=== PATIENT | female | born 1945 | race Caucasian/White ===

== ENCOUNTER 2016-05-21 14:35 | Inpatient (IN) | payer MEDICARE ==
[2016-05-21] VITALS (19 sets, daily range): BP systolic 99–147; BP diastolic 52–76; O2SAT 100
[~2016-05-21] VITALS: Ht 167.6 cm; Wt 83.7 kg
[~2016-05-21 14:35] MED LIST: ASPI81TA85 PO; BREO1INH INH; CALCCHW3 PO; CARD120T4 PO; CARD180C4 PO; CETI10TA PO; CIPR500T89 PO; COUM2.5T11 PO; CYMB60CA3 PO; DILT240C5 PO; DRIS50002 PO; FURO40TA2 PO; GABA300C3 PO; IPRASOL4 INH; LASI20TA PO; MONT10TA2 PO; MULT1TAB8 PO; PERCOCET PO; PROA1AER INH; ROSU10TA PO; SITA50TAB PO; THEO200T4 PO; THEO30TASA PO; TRAD5TAB PO; TRAM50TA2 PO; TYLE325T5 PO; ZOLO25TA PO
[2016-05-21] MEDS ORDERED: MORPHINE 2 MG/ML 1ML SYRINGE IV PRN (14:45)
[2016-05-21] MEDS ORDERED: REFRIGERATOR IV KEYS XX PRN (14:45)
[2016-05-21] MEDS ORDERED: MIDAZOLAM INJ 2 MG/2 ML VIAL (J2250) As Ordered ONE (14:50)
[2016-05-21] MEDS ORDERED: ETOMIDATE INJ 20MG/10ML VIAL As Ordered ONE (14:55)
[2016-05-21] MEDS ORDERED: ROCURONIUM BROMIDE 50 MG/5 ML VIAL As Ordered ONE (14:56)
[2016-05-21] MEDS ORDERED: ROCURONIUM BROMIDE 50 MG/5 ML VIAL IV ONE (15:00)
[2016-05-21] MEDS ORDERED: LIDOCAINE 1% MDV 20ML VIAL SC ONE (15:00)
[2016-05-21] MEDS ORDERED: LIDOCAINE 1% MDV 20ML VIAL As Ordered ONE (15:14)
[2016-05-21] MEDS ORDERED: WARF-23 PO (15:26)
--- NOTE | 2016-05-21 15:32 | REP ---
Portable chest x-ray: Single view. History: Endotracheal tube exchanged. Comparison chest x-rays from May 21, 2016. Findings: Endotracheal tube is seen in good position at the level of the transverse aorta. An NG tube enters the left upper quadrant of the abdomen. A right subclavian line terminates in the expected location of the superior vena cava as before. There is a new finding today of a moderate to large right-sided pneumothorax. There are old healed rib fractures on the right. There is some compressive atelectasis in the right lower lobe. There the right hemidiaphragm may be somewhat depressed. Impression: New fairly large right-sided pneumothorax. Endotracheal, nasogastric and right subclavian catheters in place. Signed by Romel Pate MD 05/21/2016 03:24 P
[2016-05-21 15:53] LABS: ABG BASE EXCESS 10.8 (-2.0-2.0); ABG HCO3 37.1 MEQ/L (22.0-26.0); ABG PARTIAL PRESSURE CO2 58.7 mmHg (35.0-45.0); ABG PARTIAL PRESSURE O2 74.4 mmHg (75.0-100.0); ABG STANDARD HCO3 34.5 MEQ/L (22.0-26.0); ABG TOTAL CO2 38.9 MEQ/L (23.0-31.0); ABG pH (ARTERIAL) 7.419 UNITS (7.350-7.450)
[2016-05-21] MEDS: IPRATROPIUM 0.5MG/ALBUTEROL 2.5MG INH SOL UD 3ML (DUONEB)(J7620) NEB SCH ×2 (16:00→20:05)
[2016-05-21] MEDS ORDERED: MIDAZOLAM INJ 2 MG/2 ML VIAL (J2250) IV STA (16:08)
[2016-05-21] MEDS ORDERED: ETOMIDATE INJ 20MG/10ML VIAL IV STA (16:08)
[2016-05-21] MEDS ORDERED: AZITHROMYCIN INJ 500 MG, VIAL MATE ADAPTER 1 EACH in D5W 250 ML IV SCH (17:00)
[2016-05-21 17:20] LABS: MEAN CORPUSCULAR HEMOGLOBIN 27.6 pg (27.0-33.0); MEAN CORPUSCULAR HGB CONC 30.2 g/dl (32.0-36.5); MEAN CORPUSCULAR VOLUME 91.1 fl (80.0-96.0); WHITE BLOOD COUNT 15.8 K/mm3 (4.0-10.0)
[2016-05-21] MEDS: fentaNYL 100 MCG/2 ML INJECTION (J3010) IV PRN (17:27)
--- NOTE | 2016-05-21 17:28 | REP ---
Supine portable chest x-ray: Single view. History: Intubated patient. Chest tube placement. Findings: A right chest tube is seen at the apex in good position. The right lung is reinflated and the previously noted right-sided pneumothorax is evacuated. Right lung is clear. Pulmonary vascular cephalization is seen. Mildly prominent heart is noted. Prior sternotomy seen. Endotracheal and nasogastric tubes and right subclavian line again noted. Impression: Right chest tube in good position. Right pneumothorax evacuated. Signed by Romel Pate MD 05/21/2016 05:36 P
[2016-05-21 17:37] LABS: INR 2.56
[2016-05-21 17:40] LABS: ALBUMIN 3.1 GM/DL (3.2-5.2); ALBUMIN/GLOBULIN RATIO 0.84 (1.00-1.93); BILIRUBIN,TOTAL 0.7 MG/DL (0.2-1.0); CALCIUM LEVEL 8.6 MG/DL (8.8-10.2); CREATININE FOR GFR 1.88 MG/DL (0.55-1.02); GLOMERULAR FILTRATION RATE 28.2 (>39); TOTAL PROTEIN 6.8 GM/DL (6.4-8.2)
[2016-05-21] MEDS: cefTRIAXone SOD 1 GM in D5W MINI-BAG PLUS 50 ML IV SCH (18:24)
[2016-05-21] MEDS: MIDAZOLAM HCL 100 MG in D5W 80 ML IV SCH ×2 (18:25→22:30)
[2016-05-21] MEDS: methylPREDNISolone INJ 125 MG/2 ML VIAL (J2930) IV SCH ×2 (18:25→22:12)
[2016-05-21] MEDS: HumaLOG INSULIN (NovoLOG) PER UNIT SC SCH ×2 (18:26→23:55)
--- NOTE | 2016-05-21 19:40 | HPE ---
DATE OF ADMISSION: 05/21/2016 CRITICAL CARE TIME: Two hours. This excludes all procedures. HISTORY OF PRESENT ILLNESS: I accepted this 70-year-old female from [facility] with progressive respiratory failure requiring intubation and mechanical ventilation. She had acute on chronic hypercarbic respiratory failure requiring intubation approximately 01:30 a.m. this morning. I was called for transfer late this morning and after arranging for bed, the patient arrived around 1430. On arrival, she had notable respiratory distress. The patient was difficult to bag and had high peak pressures when placed on mechanical ventilation. I exchanged her tube in order to facilitate improved breathing. However, this did not improve her distress. Chest x-ray was obtained showing right pneumothorax. Immediate chest tube was placed on the right. After chest tube was placed, peak pressures returned to near-normal. She was able to tolerate mechanical ventilation with better tidal volumes. She is now on pressure control ventilation 22 over 8 with a respiratory rate of 12, FIO2 of 0.40 with an arterial blood gas showing a pH of 7.42, pCO2 of 59, pO2 of 74. She is unable to provide any history. On review of the chart, she was admitted to [facility] on May 19, 2016, after a recent hip fracture. She was actually is admitted to [facility] on April 09 with a right intertrochanteric fracture. However, she was noted have chronic hypercarbic respiratory failure at that point in time. She was discharged on April 22 to rehabilitation facility and then became more short of breath a few days prior to admission to the hospital. During her hospital stay at [place], she was treated with broad-spectrum antibiotics for presumed healthcare-associated pneumonia, and was treated with vancomycin and cefepime. Chest CT was obtained to rule out pulmonary embolism. There was no thromboembolic disease found; however, there was very mild, nonspecific infiltrates in the right middle lobe and significant emphysema. The patient had progressive shortness of breath despite been on antibiotics and steroids, failed bilevel positive airway pressure (BiPAP), and then was intubated. As she is not able to give medical history, I did call her daughter who is her oldest child and only living relative in the area. The patient is not . Past medical history consists of: 1. Multiple falls 2. osteoporosis 3. coronary artery disease, status post coronary artery bypass grafting in 2010 4. chronic obstructive pulmonary disease on two liters of oxygen. Her daughter states she sees Dr. Geiger. 5. Hypertension. 6. Type 2 diabetes. 7. History of chronic atrial fibrillation. 8. History of congestive heart failure. 9. Obesity. 10. Dyslipidemia. 11. Chronic back pain. 12. Depression. 13. History of nephrolithiasis. 14. History of cholelithiasis. 15. Seasonal allergies. ALLERGIES: MORPHINE reported anaphylaxis. SULFA ANTIBIOTICS. Family history, social history, review of systems are all unobtainable due to the patient's condition. PHYSICAL EXAMINATION: VITAL SIGNS: Temperature is 98.7, heart rate is 104 and in sinus rhythm, oxygen saturation is 92% on 0.40 FIO2. Blood pressure is 134/63. Respiratory rate is 15. GENERAL: The patient is sedated on mechanical ventilations. HEENT: Pupils equal, react to light. Mucous membranes are moist. Tongue is large. Mallampati 4. An 8.0 end[address] tube is in place. NECK: Supple. No tracheal deviation or mass. LYMPHATIC: No cervical, supraclavicular, or axillary adenopathy. CARDIAC: Distant S1-S2 without audible murmur, rub or gallop. No discernible elevated jugular venous pulse (JVP). No significant peripheral edema. PULMONARY: Decreased breath sounds throughout both lung ayala with prolonged expiratory phase. There is no accessory muscle use. ABDOMEN: Obese, soft, slightly distended; however, distension reduced with the insertion of an orogastric (OG) tube. There was no discernible hepatosplenomegaly. No masses or hernias. EXTREMITIES: No cyanosis, clubbing or edema. SKIN: Pale, cool without rashes, jaundice or bruising. NEUROLOGIC: No unilateral weakness. The patient moves extremities appropriately when sedation is lifted. No evidence of seizure or tremor. MUSCULOSKELETAL: Well developed. No evidence of recent fracture or joint effusion. LABORATORY DATA: Laboratory evaluation shows an arterial blood gases 7.42, pCO2 of 59, and PAO2 of 74. The remainder of the blood work is pending from admission. IMAGING: Initial chest x-ray shows a right pneumothorax. Second chest x-ray shows a chest tube that was placed in the fifth intercostal space extensive apice with resolution of the pneumothorax. There are no infiltrates seen on chest x-ray. Endotracheal tube is in good position. IMPRESSION: 1. Acute on chronic hypercarbic respiratory failure requiring mechanical ventilation with complication of pneumothorax. Difficult to know the exact cause of the pneumothorax. Could be because of significant bronchospasm and barotrauma. It could also have been iatrogenic from central line placement at the outside institution or when endotracheal tube was exchanged here. As far as her hypercarbic respiratory failure, I believe this is secondary to a chronic obstructive pulmonary disease (COPD) exacerbation. COPD exacerbation will be treated with antibiotics ceftriaxone and azithromycin and we will monitor for side effects for a possible allergic reaction due to her history of SULFA allergy. She will be placed on Solu-Medrol to help with her bronchospasm and along with DuoNeb. 2. Pneumothorax. Will continue with negative suction. There is significant air leak. The patient will be placed on negative 20 cm until air leak resolves. 3. Diabetes. Will place on sliding-scale insulin every six, then initiate tube feeds at 30 mL an hour. 4. Atrial fibrillation, currently in sinus rhythm. Will check INR. At this point in time, no acute indication for anticoagulation. 5. Deep venous thrombosis (DVT) prophylaxis with heparin. 6. Gastrointestinal (GI)prophylaxis with Protonix. MTDD
[2016-05-21] MEDS: AZITHROMYCIN INJ 500 MG, VIAL MATE ADAPTER 1 EACH in D5W 250 ML IV SCH (20:14)
[2016-05-21] MEDS: CHLORHEXIDINE GLUCONATE 0.12 % 15ML UDC (PERIDEX ORAL RINSE) MT SCH (20:14)
[2016-05-21] MEDS ORDERED: SODIUM CHLORIDE 0.9% 1000 ML IV ONE (21:15)
[2016-05-21] MEDS: HEPARIN SOD (PORCINE) 5000 UNITS/ML VIAL SQ SCH (22:12)
[2016-05-22] VITALS (25 sets, daily range): BP systolic 114–154; BP diastolic 54–67; O2SAT 93–95
[2016-05-22] MEDS: MIDAZOLAM HCL 100 MG in D5W 80 ML IV SCH (05:35)
[2016-05-22] MEDS: methylPREDNISolone INJ 125 MG/2 ML VIAL (J2930) IV SCH ×4 (05:40→23:36)
[2016-05-22] MEDS: HumaLOG INSULIN (NovoLOG) PER UNIT SC SCH ×4 (05:41→23:36)
[2016-05-22] MEDS: HEPARIN SOD (PORCINE) 5000 UNITS/ML VIAL SQ SCH ×3 (05:47→21:56)
[2016-05-22 06:16] LABS: ABG BASE EXCESS 11.5 (-2.0-2.0); ABG HCO3 37.7 MEQ/L (22.0-26.0); ABG PARTIAL PRESSURE CO2 58.7 mmHg (35.0-45.0); ABG PARTIAL PRESSURE O2 80.7 mmHg (75.0-100.0); ABG STANDARD HCO3 35.2 MEQ/L (22.0-26.0); ABG TOTAL CO2 39.5 MEQ/L (23.0-31.0); ABG pH (ARTERIAL) 7.425 UNITS (7.350-7.450)
[2016-05-22 06:21] LABS: MEAN CORPUSCULAR HEMOGLOBIN 27.5 pg (27.0-33.0); MEAN CORPUSCULAR HGB CONC 30.1 g/dl (32.0-36.5); MEAN CORPUSCULAR VOLUME 91.5 fl (80.0-96.0); RED CELL DISTRIBUTION WIDTH 16.9 % (11.5-14.5); WHITE BLOOD COUNT 13.8 K/mm3 (4.0-10.0)
[2016-05-22 06:28] LABS: ALBUMIN 2.8 GM/DL (3.2-5.2); ALBUMIN/GLOBULIN RATIO 0.8 (1.00-1.93); BILIRUBIN,TOTAL 0.3 MG/DL (0.2-1.0); CALCIUM LEVEL 8.1 MG/DL (8.8-10.2); CREATININE FOR GFR 2.3 MG/DL (0.55-1.02); GLOMERULAR FILTRATION RATE 22.3 (>39); POTASSIUM SERUM 4.1 MEQ/L (3.5-5.1); TOTAL PROTEIN 6.3 GM/DL (6.4-8.2)
--- NOTE | 2016-05-22 06:37 | RO ---
DATE OF PROCEDURE: 05/21/2016 PREOPERATIVE DIAGNOSIS: Right pneumothorax. POSTOPERATIVE DIAGNOSIS: Right pneumothorax. PROCEDURE: Right chest tube placement. SURGEON: Dr. Agustin Wang EMU FARMER: None. ANESTHESIA: 1% lidocaine. DESCRIPTION OF PROCEDURE: The procedure was deemed urgent as the patient was just transferred on mechanical ventilation with high peak pressures on arrival, no breath sounds on the right and chest x-ray confirming moderate pneumothorax. I isolated the right fifth intercostal space in the midaxillary line. I performed a time out, identifying correct site and correct procedure. Chlorhexidine was used to clean the area. Sterile drapes were then used. Lidocaine was then instilled subcutaneously down to the level of the pleura. A #10 blade was then used to cut a 2 cm incision. The long curved forceps were then used to advance into the pleural space. There was a flower of air. A #28 [place] [employer] chest tube was then placed. This was sutured in place with a mattress suture and attached to a Pleur-Evac with evidence of good air leak. Placement was confirmed by chest x-ray. Sterile gauze was placed over the site and the site was secured. There were no observed complications. The patient tolerated the procedure well with improvement of mechanical ventilation and improvement of pressures. ADELFO
--- NOTE | 2016-05-22 06:45 | RO ---
DATE OF PROCEDURE: 05/21/2016 PREOPERATIVE DIAGNOSIS: Respiratory distress. POSTOPERATIVE DIAGNOSIS: Respiratory distress. PROCEDURE: Endotracheal tube intubation. SURGEON: Dr. Agustin Wang SPAR CAP BEVELER: None. ANESTHESIA: The patient was already sedated on mechanical ventilation. The patient was brought into the intensive care unit (ICU) Room #10. As the patient was lifted from the gurney onto the bed, she was then attached to mechanical ventilation and it was noticed that she had very high peak pressures. She had a smaller endotracheal tube which she had been biting on and appeared to be kinked therefore, it was determined to best replace the tube with a larger bore endotracheal tube. This was done with ease. I did use etomidate and rocuronium to facilitate placement. Although it was slightly easier to bag, the patient still had increased peak pressures when placed on mechanical ventilation. It was then discovered that the reason for the increased pressures was because of a pneumothorax that had occurred some time prior to her arrival. Chest x-ray confirmed suspicion, therefore, chest tube was placed as outlined in a separate note. DESCRIPTION OF THE ENDOTRACHEAL TUBE PLACEMENT: The posterior pharynx was viewed. There was a grade 2 view with a glide scope. The 7.5 endotracheal tube was removed over a tube exchanger and the 8.0 endotracheal tube was advanced to the 24 cm denton at the lip. This was secured. There were no observed complications. ADELFO
[2016-05-22] MEDS ORDERED: SODIUM CHLORIDE 0.9% INJ 10 ML SYR IV PRN (07:45)
[2016-05-22] MEDS ORDERED: SLF 3 ML SYR IV PRN (07:45)
[2016-05-22] MEDS: IPRATROPIUM 0.5MG/ALBUTEROL 2.5MG INH SOL UD 3ML (DUONEB)(J7620) NEB SCH ×4 (07:48→19:57)
[2016-05-22] MEDS: PANTOPRAZOLE 40MG INJ (PROTONIX) (C9113) IV SCH (08:56)
[2016-05-22] MEDS: CHLORHEXIDINE GLUCONATE 0.12 % 15ML UDC (PERIDEX ORAL RINSE) MT SCH ×2 (08:56→20:28)
--- NOTE | 2016-05-22 09:15 | REP ---
Portable chest x-ray: Sitting AP view. History: Respiratory failure. Comparison study: May 21, 2016. Findings: A right apical chest tube remains in place. Right subclavian line endotracheal tube and nasogastric tubes are seen. EKG electrodes and oxygen delivery tubing is seen. There is no definite pneumothorax visible. Cardiomediastinal silhouette is unchanged. No new infiltrate. Signed by Romel Pate MD 05/22/2016 10:23 A
[2016-05-22] MEDS: fentaNYL 100 MCG/2 ML INJECTION (J3010) IV PRN (11:50)
[2016-05-22] MEDS ORDERED: MIDAZOLAM INJ 2 MG/2 ML VIAL (J2250) As Ordered ONE (11:58)
--- NOTE | 2016-05-22 11:59 | CCN ---
DATE OF SERVICE: 05/22/2016 Critical care time is 1 hour 8 minutes. This excludes all procedures. HISTORY OF PRESENT ILLNESS: Jennifer is a 70-year-old female who has been on mechanical ventilation. Chest tube was placed yesterday for right-sided pneumothorax. She remains on mechanical ventilation due to her respiratory failure. She had significant bronchospasm difficulty with breathing, as at the outside hospital, was intubated early yesterday morning. She is tolerating tube feeds at 30 mL an hour. She continues on high-dose Solu-Medrol, ceftriaxone, azithromycin. She is sedated with Versed. Her international normalized ratio (INR) was elevated yesterday due to the fact that she has been on warfarin for atrial fibrillation (AFib). The Coumadin has been held, and she continues on deep venous thrombosis (DVT) prophylaxis. She remains on pressure control ventilation /8 with a respiratory rate of 12, FiO2 of 0.40, with an arterial blood gas of 7.42, pCO2 of 58, pO2 of 80.7. PHYSICAL EXAMINATION: Temperature is 98.0, pulse is 120, respiratory rate is 12, blood pressure is 116/56, oxygen saturations 93% on 0.40 FiO2. Intake and output (I and O): 1510 in. 331 out. Net positive 1.179 liters. Over the past 2 hours, she has had 35 mL an hour out of urine output. In general, awakes on sedation vacation. No unilateral weakness. She occasional will have shaking movements that do not appear to be seizure activity. HEENT: Sclerae clear and anicteric. Pupils are 5 mm and reactive to light. Mucous membranes are moist without lesions. Tongue is midline. She has no upper teeth. Her lower teeth are in fair repair. 8.0 endotracheal tube is in place at 24 at the lip. Neck is supple. No tracheal deviation or mass. Jugular venous pressure (JVP) is difficult to assess because of body habitus. There is a right subclavian line in place from the outside hospital. Lymph: No cervical, supraclavicular, or axillary adenopathy. Cardiac: Distant S1, S2 without audible murmur, rub, or gallop. Rate and rhythm are regular. Pulmonary: Better air entry than yesterday. There is a prolonged expiratory phase. No significant wheeze or rhonchi. Abdomen is obese, soft, nontender, nondistended. No discernible hepatosplenomegaly. No masses or hernia. She has normal active bowel sounds. Extremities: No cyanosis, clubbing, or edema. Thromboembolic deterrents (TEDs) are in place. Musculoskeletal: Normal muscle tone. No evidence of joint effusion or fracture. Neurologic: Pupils are equal, reactive to light, as mentioned above, awakes on sedation vacation. No evidence of unilateral weakness. LABORATORY EVALUATION: Shows a pH of 7.42, pCO2 of 58, pO2 of 80.7. Sodium is 139, potassium is 4.1, chloride is 95, bicarbonate is 37, BUN of 56, creatinine of 2.3 which has increased, glucose is 165. White blood cell count is 13.8, hemoglobin 9.2, with a platelet count of 245. Chest x-ray: Chest x-ray shows right chest tube in appropriate position. The tip of the right subclavian line is in the superior vena cava. There is no significant infiltrate. IMPRESSION: 1. Acute on chronic hypercarbic respiratory failure, currently compensated on pressure control ventilation. Will continue mechanical ventilation today and perform a spontaneous breathing trial tomorrow to see if she is ready for a trial of extubation. Will continue on Solu-Medrol due to the chronic obstructive pulmonary disease (COPD) exacerbation. At this point in time, I do not find any evidence of pneumonia. However, she remains on ceftriaxone and azithromycin due to the severity of her illness. 2. Renal failure, worse today. However, is now having increased urine output. Will continue to monitor urine output over the next 24 hours. 3. Anemia. No acute indication for transfusion. I do not find any signs of active bleeding at this point in time. Will continue to monitor. 4. Right pneumothorax. Chest tube in place with continued air leak. Will continue on suction. 5. Diabetes. On sliding scale insulin. Blood glucose is in desired range this morning. Will continue to monitor for hyperglycemia, given the increase in her tube feeds. 6. History of atrial fibrillation, currently in sinus rhythm, although sinus tachycardia. The patient has a high risk of AFib with RVR. Will continue to monitor for this. 7. Deep venous thrombosis prophylaxis with heparin. 8. Gastrointestinal (GI) prophylaxis with Protonix. 9. Gastrointestinal nutrition. Will increase tube feeds to 50 mL an hour of Glucerna.
[2016-05-22] MEDS ORDERED: MIDAZOLAM INJ 2 MG/2 ML VIAL (J2250) IV PRN (12:15)
[2016-05-22] MEDS: MIDAZOLAM HCL 250 MG in D5W 200 ML IV SCH ×2 (13:01→20:52)
[2016-05-22] MEDS: SODIUM CHLORIDE 0.9% INJ 10 ML SYR IV SCH ×2 (13:01→21:56)
[2016-05-22] MEDS: SLF 3 ML SYR IV SCH ×2 (13:02→21:56)
[2016-05-22] MEDS ORDERED: PROPOFOL 1,000 MG/100 ML VIAL As Ordered ONE (13:54)
[2016-05-22] MEDS: cefTRIAXone SOD 1 GM in D5W MINI-BAG PLUS 50 ML IV SCH (17:13)
[2016-05-22] MEDS: AZITHROMYCIN INJ 500 MG, VIAL MATE ADAPTER 1 EACH in D5W 250 ML IV SCH (20:28)
[2016-05-22] MEDS: PROPOFOL 1,000 MG in APPROPRIATE DILUENT 1 EA IV SCH (23:36)
[2016-05-23] VITALS (24 sets, daily range): BP systolic 102–149; BP diastolic 50–76
[2016-05-23] MEDS: methylPREDNISolone INJ 125 MG/2 ML VIAL (J2930) IV SCH ×4 (04:05→22:21)
[2016-05-23] MEDS: HEPARIN SOD (PORCINE) 5000 UNITS/ML VIAL SQ SCH ×3 (05:35→21:01)
[2016-05-23] MEDS: PROPOFOL 1,000 MG in APPROPRIATE DILUENT 1 EA IV SCH ×3 (05:35→19:19)
[2016-05-23] MEDS: HumaLOG INSULIN (NovoLOG) PER UNIT SC SCH ×4 (05:36→23:36)
[2016-05-23] MEDS: SODIUM CHLORIDE 0.9% INJ 10 ML SYR IV SCH ×3 (05:36→21:00)
[2016-05-23] MEDS: SLF 3 ML SYR IV SCH ×3 (05:36→21:00)
[2016-05-23 05:58] LABS: MEAN CORPUSCULAR HEMOGLOBIN 27.6 pg (27.0-33.0); MEAN CORPUSCULAR VOLUME 88.8 fl (80.0-96.0); RED CELL DISTRIBUTION WIDTH 15.7 % (11.5-14.5); WHITE BLOOD COUNT 8.1 K/mm3 (4.0-10.0)
[2016-05-23 06:10] LABS: ABG BASE EXCESS 8.3 (-2.0-2.0); ABG HCO3 33.9 MEQ/L (22.0-26.0); ABG PARTIAL PRESSURE CO2 53.2 mmHg (35.0-45.0); ABG PARTIAL PRESSURE O2 105.9 mmHg (75.0-100.0); ABG STANDARD HCO3 32.1 MEQ/L (22.0-26.0); ABG TOTAL CO2 35.5 MEQ/L (23.0-31.0); ABG pH (ARTERIAL) 7.422 UNITS (7.350-7.450)
[2016-05-23 06:19] LABS: ALBUMIN 2.7 GM/DL (3.2-5.2); ALBUMIN/GLOBULIN RATIO 0.96 (1.00-1.93); BILIRUBIN,TOTAL 0.3 MG/DL (0.2-1.0); CALCIUM LEVEL 7.8 MG/DL (8.8-10.2); CREATININE FOR GFR 2.33 MG/DL (0.55-1.02); POTASSIUM SERUM 4.2 MEQ/L (3.5-5.1); TOTAL PROTEIN 5.5 GM/DL (6.4-8.2)
[2016-05-23] MEDS: IPRATROPIUM 0.5MG/ALBUTEROL 2.5MG INH SOL UD 3ML (DUONEB)(J7620) NEB SCH ×4 (07:44→20:19)
--- NOTE | 2016-05-23 08:14 | REP ---
Clinical: Respiratory failure. Comparison: 05/22/2016. Findings: Right chest tube in stable position. Endotracheal tube approximately 3 cm above the moe. Nasogastric tube courses below the left hemidiaphragm. Right central venous catheter with tip in the SVC. Mediastinum and cardiac silhouette stable. Evidence of prior sternotomy and CABG. Trace left basilar atelectasis cannot be excluded. No obvious pneumothorax. No obvious effusion. Skeletal structures are stable. Impression: 1. Lines and tubes in satisfactory position. II. No significant mediastinal or pleuroparenchymal changes. Trace left basilar atelectasis cannot be excluded. No obvious pneumothorax. Signed by Low Monahan MD 05/23/2016 08:05 A
[2016-05-23] MEDS: PANTOPRAZOLE 40MG INJ (PROTONIX) (C9113) IV SCH (08:17)
[2016-05-23] MEDS: CHLORHEXIDINE GLUCONATE 0.12 % 15ML UDC (PERIDEX ORAL RINSE) MT SCH ×2 (08:17→21:00)
--- NOTE | 2016-05-23 11:28 | CCN ---
DATE OF SERVICE: 05/21/2016 Critical care time was 1 hour and 19 minutes. This excludes all procedures. SUBJECTIVE: I have placed patient on a spontaneous breathing trial this morning with lightened sedation. She had a very high rapid shallow breathing index and her oxygen saturation decreased to 86%. Therefore, she was returned to her usual mechanical ventilatory settings. There is no visible air leak this morning, although there was yesterday. I placed the chest tube on water seal and will repeat a chest x-ray in an hour. PHYSICAL EXAMINATION: Temperature is 98.1, pulse is 83, respiratory rate is 12, blood pressure is 134/63 with an oxygen saturation 92% on 0.40 FiO2. Intake and output: 1448 in, 872 out, net positive 576. In general, patient is sedated on mechanical ventilation requiring quite a bit of sedation to prevent self extubation. Patient arouses violently with biting of the tube when sedation is lifted. HEENT: Sclerae clear and anicteric. Pupils equal, react to light. Mucous membranes are moist without lesions. Oropharynx without erythema or exudate. Neck is supple. No tracheal deviation or mass. Lymphs: No cervical, supraclavicular or axillary adenopathy. Cardiac: Distant S1, S2. Without audible murmur, rub or gallop. Jugular venous pulse (JVP) is difficult to assess due to body habitus. No peripheral edema. Pulmonary: Decreased breath sounds throughout with prolonged expiratory phase. No rales, rhonchi or wheezes. No dullness to percussion. Abdomen is obese, soft, nontender, nondistended. No hepatosplenomegaly. No masses or hernia. Extremities: No cyanosis, clubbing or edema. Skin is pale. No bruising. Musculoskeletal: No muscle weakness. No unilateral weakness. Muscle tone is normal. No joint effusions. Laboratory evaluation shows a white count that is down to 8.1 from 15, hemoglobin 8.6, platelet count of 205. Calcium 7.8, albumin of 2.7, glucose of 167. Sodium 139, potassium 4.2, chloride 105, bicarbonate of 36, BUN of 72, creatinine of 2.33. Chest x-ray from this morning shows chest tube is in place on the right. There is no residual pneumothorax. Right subclavian is in place. Endotracheal tube is also in place without any infiltrate in the lung parenchyma. There is some blunting of the left costophrenic angle. IMPRESSION: 1. Acute hypoxic hypercarbic respiratory failure with history of chronic hypercarbic respiratory failure. Patient failed spontaneous breathing trial this morning. I will lighten sedation tomorrow and then retry spontaneous breathing trial. It is likely she will have to be converted to bilevel positive airway pressure (BiPAP) at the time of extubation. 2. Right pneumothorax. Will place chest tube on water seal and repeat chest x-ray in an hour to look for reaccumulation. 3. Acute renal failure. Creatinine is unchanged. Will continue to monitor urine output. At this point in time, holding off on diuresis due to her recent renal failure. 4. Diabetes. Glucose is adequate control based on intensive care unit (ICU) criteria. 5. Nutrition. Patient is on Glucerna 50 mL an hour. 6. Deep venous thrombosis (DVT) prophylaxis. Patient is on heparin. 7. Gastrointestinal (GI) prophylaxis. Patient is on Protonix. 8. Chronic obstructive pulmonary disease. Patient is on Solu-Medrol, ceftriaxone, azithromycin. Will de-escalate therapy in the next 3-5 days. MTDD
--- NOTE | 2016-05-23 12:51 | REP ---
Clinical: Follow up pneumothorax. Comparison: 05/23/2016 at 06:35 a.m.. Findings: Right apical chest tube in stable position. Endotracheal tube 3 cm above the moe. Nasogastric tube courses below the left hemidiaphragm. Right central venous catheter with tip in the SVC. A minuscule residual right apical pneumothorax cannot be excluded. Mediastinum and cardiac silhouette are stable. Lung bases demonstrate blunting to the costophrenic angles unchanged from prior examination as well as chronic changes; subtle left basilar atelectasis cannot be excluded. Impression: 1. Minuscule residual right apical pneumothorax. 2. Lines and tubes in stable satisfactory position. 3. Cannot exclude trace left basilar atelectasis. Signed by Low Monahan MD 05/23/2016 12:42 P
[2016-05-23] MEDS: MIDAZOLAM HCL 250 MG in D5W 200 ML IV SCH (13:32)
[2016-05-23] MEDS: cefTRIAXone SOD 1 GM in D5W MINI-BAG PLUS 50 ML IV SCH (17:33)
[2016-05-23] MEDS ORDERED: ROCURONIUM BROMIDE 50 MG/5 ML VIAL IV SCH (18:00)
[2016-05-23] MEDS: AZITHROMYCIN INJ 500 MG, VIAL MATE ADAPTER 1 EACH in D5W 250 ML IV SCH (19:19)
[2016-05-24] VITALS (25 sets, daily range): BP systolic 110–173; BP diastolic 57–73; O2SAT 92
[2016-05-24] MEDS: PROPOFOL 1,000 MG in APPROPRIATE DILUENT 1 EA IV SCH ×2 (02:30→17:54)
[2016-05-24] MEDS: methylPREDNISolone INJ 125 MG/2 ML VIAL (J2930) IV SCH ×4 (05:49→23:24)
[2016-05-24] MEDS: SODIUM CHLORIDE 0.9% INJ 10 ML SYR IV SCH ×3 (05:50→21:02)
[2016-05-24] MEDS: HEPARIN SOD (PORCINE) 5000 UNITS/ML VIAL SQ SCH ×3 (05:50→21:01)
[2016-05-24] MEDS: SLF 3 ML SYR IV SCH ×3 (05:50→21:02)
[2016-05-24] MEDS: MIDAZOLAM HCL 250 MG in D5W 200 ML IV SCH (06:05)
[2016-05-24 06:06] LABS: MEAN CORPUSCULAR HEMOGLOBIN 27.9 pg (27.0-33.0); MEAN CORPUSCULAR HGB CONC 32.2 g/dl (32.0-36.5); MEAN CORPUSCULAR VOLUME 86.7 fl (80.0-96.0); RED CELL DISTRIBUTION WIDTH 16.6 % (11.5-14.5)
[2016-05-24 06:08] LABS: ABG BASE EXCESS 9.5 (-2.0-2.0); ABG HCO3 35.2 MEQ/L (22.0-26.0); ABG PARTIAL PRESSURE CO2 54.7 mmHg (35.0-45.0); ABG PARTIAL PRESSURE O2 102.6 mmHg (75.0-100.0); ABG STANDARD HCO3 33.3 MEQ/L (22.0-26.0); ABG TOTAL CO2 36.9 MEQ/L (23.0-31.0); ABG pH (ARTERIAL) 7.427 UNITS (7.350-7.450)
[2016-05-24] MEDS: HumaLOG INSULIN (NovoLOG) PER UNIT SC SCH ×4 (06:08→23:24)
[2016-05-24 06:32] LABS: ALBUMIN 2.8 GM/DL (3.2-5.2); ALBUMIN/GLOBULIN RATIO 0.9 (1.00-1.93); BILIRUBIN,TOTAL 0.3 MG/DL (0.2-1.0); CALCIUM LEVEL 8.3 MG/DL (8.8-10.2); CREATININE FOR GFR 2.08 MG/DL (0.55-1.02); GLOMERULAR FILTRATION RATE 25.1 (>39); POTASSIUM SERUM 4.3 MEQ/L (3.5-5.1); TOTAL PROTEIN 5.9 GM/DL (6.4-8.2)
--- NOTE | 2016-05-24 08:13 | REP ---
Clinical: Respiratory failure. Comparison: 05/23/2016 at 12:26 p.m. Findings: Right apical chest tube in stable position. Central venous catheter with tip in the SVC. Endotracheal tube approximately 3 cm above the moe. Nasogastric tube courses below left hemidiaphragm. Small residual right apical pneumothorax identified. Trace perihilar and basilar atelectasis suggested. Small layering pleural effusions cannot be excluded. Skeletal structures intact. Impression: Lines and tubes in satisfactory position. Small residual right apical pneumothorax along with lower lobe atelectasis and possible small pleural effusions Signed by Low Monahan MD 05/24/2016 08:04 A
[2016-05-24] MEDS: IPRATROPIUM 0.5MG/ALBUTEROL 2.5MG INH SOL UD 3ML (DUONEB)(J7620) NEB SCH ×4 (08:37→19:54)
[2016-05-24] MEDS: PANTOPRAZOLE 40MG INJ (PROTONIX) (C9113) IV SCH (09:26)
[2016-05-24] MEDS: CHLORHEXIDINE GLUCONATE 0.12 % 15ML UDC (PERIDEX ORAL RINSE) MT SCH ×2 (09:26→20:55)
--- NOTE | 2016-05-24 10:39 | CCN ---
DATE: 05/24/2016 Critical care time was 1 hour and 15 minutes. This excludes all procedures. HISTORY OF PRESENT ILLNESS: Ms. Gooden has had increase tube feed residuals overnight without evidence of aspiration. I initiated Reglan this morning. On sedation vacation, she was moving extremities yet not fully awake. I did attempt a spontaneous breathing trial. The patient had high respiratory shallow breathing index and desaturated on 5/5 pressure support, therefore was returned to her pressure control settings. Her chest tube is to water seal currently with an intermittent air leak. She remains on mechanical ventilation and requiring critical care due to the severity of her respiratory disease. PHYSICAL EXAMINATION: Temperature is 97.1, pulse is 78, respiratory rate is 12, blood pressure is 140/61, oxygen saturation 96% of 40% FiO2. General: The patient is sedated on mechanical ventilation, awakes and moves extremities appropriately. HEENT: Sclerae clear and anicteric. Pupils equal, react to light. Mucous membranes moist without lesions. Neck is supple. No tracheal deviation or mass. Lymph: No cervical, supraclavicular or axillary adenopathy. Pulmonary: Decreased breath sounds bilaterally. Expiratory phase is prolonged. No rales, rhonchi or wheezes. Cardiac: Regular S1, S2 without audible murmur, rub or gallop. No discernible elevated JVP. No systemic edema. Abdomen: Soft, nontender, nondistended. No hepatosplenomegaly. No masses or hernia. Abdomen is obese. Extremities: No cyanosis, clubbing or edema. Laboratory evaluation shows arterial blood gas with pH of 7.43, pCO2 of 56, pO2 of 102, white count is down to 8.0, hemoglobin 9.4, platelet count of 212, sodium is 139, potassium 4.3, chloride 93, bicarb 37, BUN of 82, creatinine of 2.08, glucose of 180, albumin of 2.8. Chest x-ray shows chest tube is in adequate position. There is no significant infiltrate. Endotracheal tube is in good position above the moe and there is a right subclavian line. IMPRESSION: 1. Acute on chronic respiratory failure, currently compensated however, is unable to pass a spontaneously breathing trial with his oxygen desaturations with a trial on pressure support 5/5. Will continue mechanical ventilation and continue steroids. Will continue to monitor for volume overload. Currently she has good urine output approximately 60 mL an hour. 2. Pneumothorax, unsure of the exact cause. The patient continues to have air leak. Will continue on water seal. There is no accumulation of the pneumothorax on water seal. 3. Acute renal failure, creatinine is down to 2.8, however, BUN is up to 82. 4. Diabetes, blood sugar is adequately controlled. 5. Protonix for gastrointestinal (GI) prophylaxis. 6. Heparin for deep venous thrombosis (DVT) prophylaxis. 7. Nutrition. Currently the patient is on Glucerna 50 mL an hour. She has had some high residuals. I will add Reglan to her regimen to see if this helps. If this improves her high residuals, will increase her tube feeds at that point in time.
[2016-05-24] MEDS: METOCLOPRAMIDE HCL LIQUID 10 MG/10 ML UDC GT SCH ×3 (12:06→20:55)
[2016-05-24] MEDS: cefTRIAXone SOD 1 GM in D5W MINI-BAG PLUS 50 ML IV SCH (17:44)
[2016-05-24] MEDS: AZITHROMYCIN INJ 500 MG, VIAL MATE ADAPTER 1 EACH in D5W 250 ML IV SCH (20:55)
[2016-05-25] VITALS (26 sets, daily range): BP systolic 112–167; BP diastolic 54–74; O2SAT 93–95
[2016-05-25] MEDS: PROPOFOL 1,000 MG in APPROPRIATE DILUENT 1 EA IV SCH ×4 (00:42→19:21)
[2016-05-25 05:38] LABS: MEAN CORPUSCULAR HEMOGLOBIN 27.7 pg (27.0-33.0); MEAN CORPUSCULAR HGB CONC 31.2 g/dl (32.0-36.5); MEAN CORPUSCULAR VOLUME 88.9 fl (80.0-96.0); RED CELL DISTRIBUTION WIDTH 15.6 % (11.5-14.5); WHITE BLOOD COUNT 8.5 K/mm3 (4.0-10.0)
[2016-05-25] MEDS: HEPARIN SOD (PORCINE) 5000 UNITS/ML VIAL SQ SCH ×3 (05:44→21:19)
[2016-05-25] MEDS: HumaLOG INSULIN (NovoLOG) PER UNIT SC SCH ×4 (05:44→23:09)
[2016-05-25] MEDS: methylPREDNISolone INJ 125 MG/2 ML VIAL (J2930) IV SCH ×4 (05:44→23:09)
[2016-05-25] MEDS: SODIUM CHLORIDE 0.9% INJ 10 ML SYR IV SCH ×3 (05:45→21:20)
[2016-05-25] MEDS: SLF 3 ML SYR IV SCH (05:46)
[2016-05-25 05:47] LABS: ABG BASE EXCESS 14.4 (-2.0-2.0); ABG HCO3 40.7 MEQ/L (22.0-26.0); ABG PARTIAL PRESSURE O2 95.3 mmHg (75.0-100.0); ABG STANDARD HCO3 38.1 MEQ/L (22.0-26.0); ABG TOTAL CO2 42.6 MEQ/L (23.0-31.0); ABG pH (ARTERIAL) 7.436 UNITS (7.350-7.450)
[2016-05-25 05:51] LABS: ABG PARTIAL PRESSURE CO2 61.9 mmHg (35.0-45.0)
[2016-05-25 05:56] LABS: ALBUMIN 2.8 GM/DL (3.2-5.2); ALBUMIN/GLOBULIN RATIO 0.93 (1.00-1.93); BILIRUBIN,TOTAL 0.3 MG/DL (0.2-1.0); CREATININE FOR GFR 1.73 MG/DL (0.55-1.02); POTASSIUM SERUM 4.3 MEQ/L (3.5-5.1); TOTAL PROTEIN 5.8 GM/DL (6.4-8.2)
--- NOTE | 2016-05-25 08:29 | REP ---
Clinical: Respiratory failure. Comparison: 05/24/2016. Findings: Right apical chest tube in stable position. Previously noted minuscule right apical pneumothorax is poorly identified on current examination and possibly resolved. Tracheostomy approximately 2 cm above the moe. Nasogastric tube courses below left hemidiaphragm. Right subclavian catheter with tip in the SVC. Mediastinum and cardiac silhouette stable. Trace right basilar atelectasis cannot be excluded. No new acute process identified. Impression: Right apical pneumothorax poorly identified on current examination and possibly resolved. Trace right basilar atelectasis. No new acute process identified. Signed by Low Monahan MD 05/25/2016 08:20 A
[2016-05-25] MEDS: IPRATROPIUM 0.5MG/ALBUTEROL 2.5MG INH SOL UD 3ML (DUONEB)(J7620) NEB SCH ×4 (08:32→20:26)
[2016-05-25] MEDS: CHLORHEXIDINE GLUCONATE 0.12 % 15ML UDC (PERIDEX ORAL RINSE) MT SCH ×2 (08:51→21:17)
[2016-05-25] MEDS: PANTOPRAZOLE 40MG INJ (PROTONIX) (C9113) IV SCH (08:51)
[2016-05-25] MEDS: METOCLOPRAMIDE HCL LIQUID 10 MG/10 ML UDC GT SCH ×3 (08:51→21:17)
[2016-05-25] MEDS ORDERED: FUROSEMIDE 40 MG/4 ML VIAL (J1940) IV ONE (09:00)
--- NOTE | 2016-05-25 09:43 | CCN ---
DATE: 05/25/2016 Critical care time was 45 minutes. This excludes all procedures. HISTORY OF PRESENT ILLNESS: Patient had minimally high residuals early in the evening as far as her tube feeds. She is now tolerating tube feeds at 50 mL an hour. This morning on sedation vacation she woke up with purposeful and had better mentation. Spontaneous breathing trial was performed. She did not desaturate however, her respiratory shallow breathing index was over 200. She was therefore changed back to pressure control ventilation. Chest tube remains in place in the right hemithorax. There continues to be a positive air leak. The patient is on water seal. There is no residual pneumothorax on chest x-ray this morning. PHYSICAL EXAMINATION: Temperature is 96.8, pulse is 85, respiratory rate 20, blood pressure is 145/67, oxygen saturation 94% on 0.40 FiO2. GENERAL: The patient is awake and able to answer yes or no questions. She shakes her head yes to feeling short of breath. HEENT: Sclerae clear and anicteric. Pupils are approximately 6 mm and reactive to light. Mucous membranes are moist. Tongue is midline. 8.0 endotracheal tube is in place. NECK: Supple. No tracheal deviation or mass. LYMPHS: No cervical, supraclavicular or axillary, adenopathy. CARDIAC: Regular S1-S2 without audible murmur, rub or gallop. No discernible elevated JVP. No significant peripheral edema. PULMONARY: There is an expiratory wheeze. Prolonged expiratory phase. The patient is tachypneic when on spontaneous breathing trial 5/5. Much more rested on full ventilatory support. There is no accessory muscle use at this point in time. ABDOMEN: Obese, soft, nontender, nondistended. No hepatosplenomegaly. No mass or hernia. CHEST WALL: The right lateral chest tube was inspected. There is some bruising around the site. She was on full-dose anticoagulation on her arrival. The chest tube is secure without any surrounding exudate. No evidence of cellulitis. There is minimal drainage from tube, approximately 11 mL over the past 24 hours. EXTREMITIES: No cyanosis, clubbing or edema. NEURO: No unilateral weakness, tremor or seizure activity. Laboratory evaluation shows a pH of 7.44, pCO2 of 62, PaO2 of 95.3, hemoglobin is 9.1, white blood cell count is 8.5, platelet count of 209, sodium is 142, potassium is 4.3, chloride is 95, bicarb 39, BUN of 83, creatinine of 1.73 and a glucose of 159. Chest x-ray shows bilateral vascular congestion, some blunting of the left costophrenic angle. Chest tube is in place in the right hemithorax and the endotracheal tube is approximately 2 cm above the moe. Subclavian line is in place. IMPRESSION: 1. Acute hypercarbic hypoxic respiratory failure. The patient is less hypoxic on spontaneous breathing trial this morning. However, continues to have an increase rapid shallow breathing index. Therefore, with evidence of pulmonary edema on chest x-ray will diurese today and monitor urine output. Goal of 1 liter out over the next 24 hours. I believe this will help facilitate extubation. Will plan to repeat a spontaneous breathing trial in the morning. 2. Pneumothorax and persistent air leak. Will continue with water seal. 3. Renal failure. Creatinine is lower this morning along with BUN. 4. Anemia possibly dilutional. No indication for transfusion at this point in time. 5. History of coronary artery disease. No evidence ischemia at this point in time. 6. Hypertension. Blood pressure is adequate. Currently on propofol for sedation. Will likely need additional blood pressure management around the time of extubation. 7. Deep vein thrombosis (DVT) prophylaxis with heparin. 8. Gastrointestinal (GI) prophylaxis with Protonix.
[2016-05-25] MEDS: cefTRIAXone SOD 1 GM in D5W MINI-BAG PLUS 50 ML IV SCH (17:29)
[2016-05-25] MEDS: AZITHROMYCIN INJ 500 MG, VIAL MATE ADAPTER 1 EACH in D5W 250 ML IV SCH (19:21)
[2016-05-26] VITALS (24 sets, daily range): BP systolic 105–162; BP diastolic 54–71; O2SAT 97
[2016-05-26] MEDS: PROPOFOL 1,000 MG in APPROPRIATE DILUENT 1 EA IV SCH ×8 (00:35→23:28)
[2016-05-26] MEDS: fentaNYL 100 MCG/2 ML INJECTION (J3010) IV PRN ×2 (01:33→12:38)
[2016-05-26 05:24] LABS: MEAN CORPUSCULAR HEMOGLOBIN 27.2 pg (27.0-33.0); MEAN CORPUSCULAR HGB CONC 30.8 g/dl (32.0-36.5); MEAN CORPUSCULAR VOLUME 88.3 fl (80.0-96.0); RED CELL DISTRIBUTION WIDTH 16.9 % (11.5-14.5); WHITE BLOOD COUNT 12.1 K/mm3 (4.0-10.0)
[2016-05-26] MEDS: HEPARIN SOD (PORCINE) 5000 UNITS/ML VIAL SQ SCH ×3 (05:31→21:00)
[2016-05-26] MEDS: SODIUM CHLORIDE 0.9% INJ 10 ML SYR IV SCH ×3 (05:32→21:00)
[2016-05-26] MEDS: methylPREDNISolone INJ 125 MG/2 ML VIAL (J2930) IV SCH ×3 (05:32→20:11)
[2016-05-26] MEDS: HumaLOG INSULIN (NovoLOG) PER UNIT SC SCH ×4 (05:32→23:47)
[2016-05-26 05:36] LABS: ALBUMIN 3.1 GM/DL (3.2-5.2); ALBUMIN/GLOBULIN RATIO 1.07 (1.00-1.93); BILIRUBIN,TOTAL 0.5 MG/DL (0.2-1.0); CALCIUM LEVEL 8.1 MG/DL (8.8-10.2); CREATININE FOR GFR 1.45 MG/DL (0.55-1.02); POTASSIUM SERUM 4.1 MEQ/L (3.5-5.1)
[2016-05-26 05:40] LABS: ABG BASE EXCESS 20.2 (-2.0-2.0); ABG HCO3 46.6 MEQ/L (22.0-26.0); ABG PARTIAL PRESSURE O2 86.8 mmHg (75.0-100.0); ABG STANDARD HCO3 44.3 MEQ/L (22.0-26.0); ABG TOTAL CO2 48.6 MEQ/L (23.0-31.0); ABG pH (ARTERIAL) 7.479 UNITS (7.350-7.450)
[2016-05-26 05:44] LABS: ABG PARTIAL PRESSURE CO2 64.2 mmHg (35.0-45.0)
[2016-05-26] MEDS: IPRATROPIUM 0.5MG/ALBUTEROL 2.5MG INH SOL UD 3ML (DUONEB)(J7620) NEB SCH ×4 (08:24→20:22)
--- NOTE | 2016-05-26 08:29 | REP ---
Clinical: Respiratory failure. Comparison: 05/25/2016. Findings: A minuscule residual right apical pneumothorax cannot be excluded. The right chest tube is in stable position. Bilateral pleuroparenchymal changes are again appreciated including bibasilar atelectasis and suspected small layering effusions. Mediastinum and cardiac silhouette stable. Skeletal structures intact. Impression: Very small residual right apical pneumothorax suggested. Bibasilar infiltrate/atelectasis and small layering effusions. Signed by Low Monahan MD 05/26/2016 08:20 A
[2016-05-26] MEDS: PANTOPRAZOLE 40MG INJ (PROTONIX) (C9113) IV SCH (08:58)
[2016-05-26] MEDS: CHLORHEXIDINE GLUCONATE 0.12 % 15ML UDC (PERIDEX ORAL RINSE) MT SCH ×2 (08:58→20:10)
[2016-05-26] MEDS: METOCLOPRAMIDE HCL LIQUID 10 MG/10 ML UDC GT SCH ×3 (08:58→20:11)
[2016-05-26] MEDS ORDERED: FUROSEMIDE 40 MG/4 ML VIAL (J1940) IV ONE (09:00)
--- NOTE | 2016-05-26 09:04 | CCN ---
DATE: 05/26/2016 Critical care time was 47 minutes. This excludes all procedures. HISTORY OF PRESENT ILLNESS: The patient is now off sedation, is able to follow commands. Is currently on a spontaneous breathing trial to see if she can be extubated this morning. She continues to have respiratory distress, is on high-dose Solu-Medrol. We will taper that today. She has no air leak and only 17 mL of fluid out over the past 24 hours. She has failed multiple spontaneous breathing trials due to rapid shallow breathing and hypoxia. She remains critically ill because of her respiratory status. PHYSICAL EXAMINATION: Temperature is 97.3, pulse is 78, respiratory rate ranging from 22-30 on her spontaneous breathing trial, blood pressure is 160/71, oxygen saturation 91% on 0.40. General: The patient is arousable on mechanical ventilation, is able to shake her head yes or no to questions. HEENT: Sclerae clear and anicteric. Pupils are approximately 7 mm and reactive to light. Mucous membranes are moist without lesions. Tongue is midline. Endotracheal tube is in place. Neck is supple. No tracheal deviation or mass. Lymph: No cervical, supraclavicular or axillary adenopathy. Right subclavian is in place without surrounding erythema or exudate. Pulmonary: Decreased breath sounds throughout. No rales, rhonchi or wheezes. No dullness to percussion at rest, however on spontaneous breathing trial the patient had significant expiratory wheezing, Chest: Airway symmetric. No accessory muscle use. Cardiac: Distant S1, S2 without audible murmur, rub or gallop. Currently she is in sinus rhythm. No significant peripheral edema. Abdomen: Soft, nontender, nondistended. Morbidly obese without discernible hepatosplenomegaly. No masses or hernia. Extremities: No cyanosis, clubbing or edema. Skin is pale without rashes, jaundice or bruising. Laboratory evaluation shows a white blood cell count of 12.1, hemoglobin of 9.2, glucose of 212, sodium 141, potassium 4.1, chloride 94, bicarb 42, BUN of 69, creatinine 1.45 with a glucose of 176. Arterial blood gas shows a pH of 7.48, pCO2 of 64, pAO2 of 86.8. Chest x-ray is extremely rotated this morning. There is blunting of the diaphragms bilaterally. The endotracheal tube is approximately 2 cm above the moe. Central line and chest tube are in appropriate position. IMPRESSION: 1. Acute on chronic hypoxic respiratory failure. Will attempt a trial of extubation this morning. Will likely extubate directly the BiPAP due to the severity of her respiratory disease. She has a high potential for reintubation. 2. Chronic obstructive pulmonary disease exacerbation. Will decrease Solu-Medrol to 60 mg. She is currently on ceftriaxone, azithromycin. This can likely be stopped in the next day or so, however, she did have an elevation of her white count over the past 24 hours to 12.1. 3. Congestive heart failure. I am prescribing Lasix based on daily assessment. As she received Lasix yesterday with improvement of her renal function and urine output. 4. Diabetes. Blood glucose is currently within ICU parameters. Will continue to monitor for hyperglycemia 5. Right pneumothorax. I do not see an air leak today. If patient is extubated , will clamp the chest tube to see if the chest tube can be removed. 6. Gastrointestinal (GI) prophylaxis with Protonix. 7. Deep venous thrombosis (DVT) prophylaxis with heparin. The patient remains critically ill with severe respiratory disease. She has acute on chronic hypercarbia. She is at high risk for reintubation if extubation is attempted today. MTDD
[2016-05-26] MEDS: cefTRIAXone SOD 1 GM in D5W MINI-BAG PLUS 50 ML IV SCH (17:55)
[2016-05-26] MEDS: AZITHROMYCIN INJ 500 MG, VIAL MATE ADAPTER 1 EACH in D5W 250 ML IV SCH (20:10)
[2016-05-27] VITALS (30 sets, daily range): BP systolic 116–187; BP diastolic 57–95; O2SAT 97
[2016-05-27] MEDS: PROPOFOL 1,000 MG in APPROPRIATE DILUENT 1 EA IV SCH ×3 (02:44→09:34)
[2016-05-27] MEDS: HumaLOG INSULIN (NovoLOG) PER UNIT SC SCH ×4 (05:28→23:49)
[2016-05-27] MEDS: SODIUM CHLORIDE 0.9% INJ 10 ML SYR IV SCH ×3 (05:28→22:06)
[2016-05-27] MEDS: methylPREDNISolone INJ 125 MG/2 ML VIAL (J2930) IV SCH ×3 (05:29→20:32)
[2016-05-27] MEDS: HEPARIN SOD (PORCINE) 5000 UNITS/ML VIAL SQ SCH ×3 (05:30→22:06)
[2016-05-27 05:36] LABS: MEAN CORPUSCULAR HEMOGLOBIN 27.7 pg (27.0-33.0); MEAN CORPUSCULAR HGB CONC 30.8 g/dl (32.0-36.5); MEAN CORPUSCULAR VOLUME 89.8 fl (80.0-96.0); RED CELL DISTRIBUTION WIDTH 15.8 % (11.5-14.5); WHITE BLOOD COUNT 10.9 K/mm3 (4.0-10.0)
[2016-05-27 05:50] LABS: ABG HCO3 42.5 MEQ/L (22.0-26.0); ABG PARTIAL PRESSURE CO2 56.8 mmHg (35.0-45.0); ABG STANDARD HCO3 40.9 MEQ/L (22.0-26.0); ABG TOTAL CO2 44.3 MEQ/L (23.0-31.0); ABG pH (ARTERIAL) 7.492 UNITS (7.350-7.450)
[2016-05-27 06:09] LABS: ALBUMIN 2.9 GM/DL (3.2-5.2); ALBUMIN/GLOBULIN RATIO 1.04 (1.00-1.93); BILIRUBIN,TOTAL 0.5 MG/DL (0.2-1.0); CREATININE FOR GFR 1.26 MG/DL (0.55-1.02); GLOMERULAR FILTRATION RATE 44.7 (>39); POTASSIUM SERUM 4.1 MEQ/L (3.5-5.1); TOTAL PROTEIN 5.7 GM/DL (6.4-8.2)
[2016-05-27] MEDS: IPRATROPIUM 0.5MG/ALBUTEROL 2.5MG INH SOL UD 3ML (DUONEB)(J7620) NEB SCH ×4 (08:18→19:51)
--- NOTE | 2016-05-27 08:35 | REP ---
Clinical: Respiratory failure. Comparison: 05/26/2016. Findings: Right chest tube in stable position. Right subclavian catheter with tip in the SVC. Nasogastric tube courses below left hemidiaphragm. Mediastinum and cardiac silhouette are stable. No obvious pneumothorax on current examination. Lung ayala demonstrate stable pleural parenchymal changes. No new acute process. Impression: No obvious residual right pneumothorax identified on current examination. Lung ayala appear stable. Signed by Low Monahan MD 05/27/2016 08:26 A
[2016-05-27] MEDS: PANTOPRAZOLE 40MG INJ (PROTONIX) (C9113) IV SCH (09:21)
[2016-05-27] MEDS: CHLORHEXIDINE GLUCONATE 0.12 % 15ML UDC (PERIDEX ORAL RINSE) MT SCH (09:21)
[2016-05-27] MEDS: METOCLOPRAMIDE HCL LIQUID 10 MG/10 ML UDC GT SCH (09:21)
[2016-05-27] MEDS ORDERED: FUROSEMIDE 40 MG/4 ML VIAL (J1940) IV ONE (12:00)
--- NOTE | 2016-05-27 12:08 | CCN ---
DATE: 05/27/2016 The patient is seen in the intensive care unit, intubated, mechanically ventilated, critically ill. This is hospital day #6, endotracheal tube day #7- 8. Her temperature is 96, pulse rate is 83, respirations 19, blood pressure 123/57. Intake and output for the past 24 hours 1782 and 2666 out, since midnight 496 in , 431 out. At bedside, she is ill-appearing. Oral mucosa is pink. Endotracheal tube is at 23 cm. Neck is supple. No meningismus. Heart sounds are regular, distant, without appreciable murmur. Breath sounds coarse, diminished. End expiratory wheezing. Abdomen is soft and obese. There is a thoracostomy tube in the right side with intermittent air leak. Extremities are cool. Pulses diminished but palpable. Nails show no clubbing. Capillary refill is normal. Diagnostic studies: Chest x-ray shows prominence in the interstitium. Her sodium is 144, potassium 4.1, chloride 96, CO2 44, BUN 55, creatinine 1.26, glucose 151. White cell count is 10.9, hemoglobin 9.2, hematocrit 29.9, platelet count 215,000. Arterial blood gases show pH 7.49, pCO2 56, pO2 95 on mechanical ventilatory support. Her albumin is 2.9. Medications reviewed. This day #6 azithromycin, day #6 ceftriaxone. The primary problem requiring critical attention is acute on chronic respiratory failure. The patient has been on mechanical ventilation for 7-8 days and it will be necessary soon to extract the endotracheal tube so as to avoid trauma. Will perform a weaning trial and if at all possible extubate her to noninvasive ventilation. Infectious disease: Will continue ceftriaxone but discontinue the azithromycin. 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 Nutritional support has been provided by tube feedings. Deep venous thrombosis (DVT) VT prophylaxis and ulcer prophylaxis are in place. The patient's glycemic control is acceptable. 58 minutes spent in provision of bedside critical care coordination. CRITICAL CARE ADDENDUM NOTE: The patient weaned to pressure support ventilation well. She is somewhat tachypneic but awake and alert. She clearly indicates that she wants the endotracheal tube out. I have discussed with her the need for noninvasive ventilation at extubation given her advanced lung disease so as to attempt to avoid reintubation. She does appear to understand and acknowledge this. I spoke with the patient's daughter and though she is not healthcare proxy, she does understand the difficult situation and the advanced nature of her mother's lung disease. She too desires that we extubate her. We will proceed with extubation to noninvasive ventilation and continue very close intensive care unit (ICU) monitoring. 18 minutes was spent in the provision of bedside critical care and coordination. ADELFO
--- NOTE | 2016-05-27 12:19 | CCN ---
DATE: 05/27/2016 COPIED AND PASTED TO ORIGINAL PROGRESS NOTE....... CRITICAL CARE ADDENDUM NOTE: The patient weaned to pressure support ventilation well. She is somewhat tachypneic but awake and alert. She clearly indicates that she wants the endotracheal tube out. I have discussed with her the need for noninvasive ventilation at extubation given her advanced lung disease so as to attempt to avoid reintubation. She does appear to understand and acknowledge this. I spoke with the patient's daughter and though she is not healthcare proxy, she does understand the difficult situation and the advanced nature of her mother's lung disease. She too desires that we extubate her. We will proceed with extubation to noninvasive ventilation and continue very close intensive care unit (ICU) monitoring. 18 minutes was spent in the provision of bedside critical care and coordination.
[2016-05-27] MEDS: cefTRIAXone SOD 1 GM in D5W MINI-BAG PLUS 50 ML IV SCH (17:24)
[2016-05-28] VITALS (23 sets, daily range): BP systolic 119–174; BP diastolic 60–113
[2016-05-28] MEDS: SODIUM CHLORIDE 0.9% INJ 10 ML SYR IV SCH ×2 (05:35→14:00)
[2016-05-28] MEDS: HEPARIN SOD (PORCINE) 5000 UNITS/ML VIAL SQ SCH ×3 (05:35→21:08)
[2016-05-28] MEDS: methylPREDNISolone INJ 125 MG/2 ML VIAL (J2930) IV SCH ×3 (05:35→21:07)
[2016-05-28 05:43] LABS: MEAN CORPUSCULAR HEMOGLOBIN 27.8 pg (27.0-33.0); MEAN CORPUSCULAR HGB CONC 30.8 g/dl (32.0-36.5); MEAN CORPUSCULAR VOLUME 90.4 fl (80.0-96.0); RED CELL DISTRIBUTION WIDTH 15.6 % (11.5-14.5); WHITE BLOOD COUNT 14.3 K/mm3 (4.0-10.0)
[2016-05-28 05:54] LABS: ALBUMIN/GLOBULIN RATIO 0.97 (1.00-1.93); BILIRUBIN,TOTAL 0.7 MG/DL (0.2-1.0); CALCIUM LEVEL 8.4 MG/DL (8.8-10.2); CREATININE FOR GFR 1.07 MG/DL (0.55-1.02); POTASSIUM SERUM 3.9 MEQ/L (3.5-5.1); TOTAL PROTEIN 6.1 GM/DL (6.4-8.2)
[2016-05-28 06:03] LABS: ABG PARTIAL PRESSURE CO2 59.5 mmHg (35.0-45.0); ABG TOTAL CO2 45.8 MEQ/L (23.0-31.0); ABG pH (ARTERIAL) 7.487 UNITS (7.350-7.450)
[2016-05-28] MEDS: HumaLOG INSULIN (NovoLOG) PER UNIT SC SCH ×4 (06:14→21:00)
--- NOTE | 2016-05-28 07:16 | ECGEPIP ---
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
[2016-05-28] MEDS: IPRATROPIUM 0.5MG/ALBUTEROL 2.5MG INH SOL UD 3ML (DUONEB)(J7620) NEB SCH ×2 (07:44→11:18)
--- NOTE | 2016-05-28 07:59 | REP ---
Clinical: Respiratory failure. Comparison: 05/27/2016. Findings: Right apical chest tube in stable position. Right subclavian catheter with tip in the SVC. Mediastinum and cardiac silhouette are stable. A small residual right apical pneumothorax is suspected and similar to prior examination. Lung ayala demonstrate prominent pulmonary vasculature with cephalization suggesting pulmonary venous congestion. Blunting of the left costophrenic angle may reflect small pleural effusion. Impression: Pulmonary venous congestion cannot be excluded along with small left pleural effusion. Small residual right apical pneumothorax and possible small right pleural fluid. Signed by Low Monahan MD 05/28/2016 07:50 A
[2016-05-28] MEDS ORDERED: DEXTROSE 50% 50 ML SYRINGE IV PRN (09:45)
[2016-05-28] MEDS ORDERED: GLUCOSE 4 GM CHEW TABLET PO PRN ×2 (09:45)
[2016-05-28] MEDS ORDERED: GLUCAGON FOR INJ 1 MG VIAL (J1610) SC PRN ×2 (09:45)
[2016-05-28] MEDS: PANTOPRAZOLE 40MG INJ (PROTONIX) (C9113) IV SCH (09:46)
[2016-05-28] MEDS ORDERED: LEVALBUTEROL 1.25 MG/0.5 ML CONCENTRATE NEB INH PRN (11:30)
--- NOTE | 2016-05-28 12:22 | CCN ---
DATE: 05/28/2016 CRITICAL CARE NOTE The patient was weaned and extubated yesterday to bilevel positive airway pressure (BiPAP). She tolerated this reasonably well through the night. Heart rate did increase and rhythm became somewhat irregular. She was restarted on Cardizem and is back in a sinus rhythm. Her temperature is 97, pulse rate 78, respirations 26, blood pressure 141/62. Intake and output for the past 24 hours is 1280 in and 2531 out; since midnight 600 in and 655 out. At bedside, she is ill appearing. Her oral mucosa are pink. Neck is supple without meningismus. Jugular veins are difficult to appreciate. The heart sounds are regular. Occasional ectopy. Breath sounds are markedly diminished, coarse in the bases. No overt wheezing. Chest is symmetric. Accessory muscle use is noted with speech. Expiratory phase is quite prolonged. The abdomen is soft with intact bowel sounds. Extremities are cool. Pulses diminished. DIAGNOSTIC STUDIES: Chest x-ray shows the thoracostomy tube in the right side with a very tiny apical pneumothorax. Sodium is 144, potassium 3.9, chloride 97, CO2 43, BUN 46, creatinine 1.07, glucose 148. White cell count is 14, hemoglobin 10, hematocrit 32, platelet count 225,000. Arterial blood gases show a pH of 7.48, pCO2 59, pO2 88. On review of medications, she was receiving Solu-Medrol 80 mg every 8 hours and Rocephin and now Cardizem 60 mg every 6 hours with a hold parameter. The primary problem requiring critical attention is acute on chronic respiratory failure. Will continue noninvasive ventilation today and begin weaning to allow her to eat as she is able. Supplemental oxygen during times off BiPAP. From an infectious disease standpoint, will stop the Rocephin as she has had sufficient therapy. Bronchopleural fistula. There is a tiny pneumothorax on the chest x-ray. Will continue the chest tube to water seal for the time being. From a nutritional standpoint, will increase her diet as tolerated. Deep vein thrombosis (DVT) and ulcer prophylaxis are in place. The patient's condition remains critical. Prognosis is guarded. 47 minutes was spent in the provision of bedside critical care and coordination.
[2016-05-28] MEDS: IPRATROPIUM 0.02% SOLN 0.5MG/2.5 ML NEB INH SCH ×2 (13:07→20:24)
[2016-05-28] MEDS: LEVALBUTEROL 1.25 MG/0.5 ML CONCENTRATE NEB INH SCH ×2 (13:07→20:24)
[2016-05-29] VITALS (11 sets, daily range): BP systolic 129–196; BP diastolic 58–94
[2016-05-29] MEDS: IPRATROPIUM 0.02% SOLN 0.5MG/2.5 ML NEB INH SCH ×4 (02:03→20:11)
[2016-05-29] MEDS: LEVALBUTEROL 1.25 MG/0.5 ML CONCENTRATE NEB INH SCH ×4 (02:03→20:11)
[2016-05-29 04:51] LABS: BASO % 0.1 % (0.0-1.0); EOS % 0.3 % (0.0-3.0); LARGE UNSTAINED CELL # 0.1 K/mm3 (0.0-0.4); LARGE UNSTAINED CELL % 1.1 % (0.0-4.0); LYMPH # 0.2 K/mm3 (1.5-4.5); LYMPH % 2.1 % (24.0-44.0); MEAN CORPUSCULAR HEMOGLOBIN 27.8 pg (27.0-33.0); MEAN CORPUSCULAR VOLUME 89.8 fl (80.0-96.0); MONO # 0.5 K/mm3 (0.0-0.8); MONO % 4.7 % (0.0-5.0); NEUTROPHILS # 10.1 K/mm3 (1.8-7.7); NEUTROPHILS % 91.6 % (36.0-66.0); PLATELET COUNT, AUTOMATED 234 k/mm3 (150-450); RED CELL DISTRIBUTION WIDTH 15.4 % (11.5-14.5)
[2016-05-29 04:52] LABS: ADD MORPHOLOGY? YES
[2016-05-29 05:10] LABS: ALBUMIN 3.1 GM/DL (3.2-5.2); ALBUMIN/GLOBULIN RATIO 0.94 (1.00-1.93); BILIRUBIN,TOTAL 0.9 MG/DL (0.2-1.0); CALCIUM LEVEL 8.3 MG/DL (8.8-10.2); CREATININE FOR GFR 0.98 MG/DL (0.55-1.02); GLOMERULAR FILTRATION RATE 59.7 (>39); PHOSPHORUS LEVEL 2.6 MG/DL (2.5-4.9); POTASSIUM SERUM 4.1 MEQ/L (3.5-5.1); TOTAL PROTEIN 6.4 GM/DL (6.4-8.2)
[2016-05-29] MEDS: methylPREDNISolone INJ 125 MG/2 ML VIAL (J2930) IV SCH (05:17)
[2016-05-29] MEDS: HEPARIN SOD (PORCINE) 5000 UNITS/ML VIAL SQ SCH ×3 (05:17→21:39)
[2016-05-29 05:26] LABS: ABG BASE EXCESS 13.9 (-2.0-2.0); ABG HCO3 39.5 MEQ/L (22.0-26.0); ABG PARTIAL PRESSURE CO2 54.9 mmHg (35.0-45.0); ABG PARTIAL PRESSURE O2 74.5 mmHg (75.0-100.0); ABG STANDARD HCO3 37.6 MEQ/L (22.0-26.0); ABG TOTAL CO2 41.2 MEQ/L (23.0-31.0); ABG pH (ARTERIAL) 7.475 UNITS (7.350-7.450)
[2016-05-29 05:27] LABS: ANISOCYTOSIS 1+; HYPOCHROMASIA 1+
[2016-05-29] MEDS: HumaLOG INSULIN (NovoLOG) PER UNIT SC SCH ×4 (08:11→20:41)
[2016-05-29] MEDS: PANTOPRAZOLE 40MG INJ (PROTONIX) (C9113) IV SCH (08:11)
--- NOTE | 2016-05-29 08:49 | REP ---
Clinical: Follow up pneumothorax. Comparison: 05/28/2016. Findings: Current examination demonstrates a right chest tube in stable position and very small residual pneumothorax similar to prior examination. Underlying pleural parenchymal changes are otherwise stable. Mediastinum and cardiac silhouette unchanged. Previously noted right subclavian catheter has been removed. Impression: Very small residual right apical pneumothorax similar to prior examination. No new acute process identified. Right subclavian catheter removed. Signed by Low Monahan MD 05/29/2016 08:40 A
--- NOTE | 2016-05-29 13:43 | REP ---
Clinical: Evaluate pneumothorax with clamped chest tube. Comparison: 05/29/2016 at 05:13 a.m. Findings: Chest tube in stable position. The right apical pneumothorax is mildly increased in size. The mediastinum, cardiac silhouette, and aerated lung ayala are otherwise stable. Impression: Right apical pneumothorax mildly increased in size. No new acute process. Signed by Low Monahan MD 05/29/2016 01:35 P
[2016-05-29] MEDS: methylPREDNISolone INJ 40 MG/1 ML VIAL (J2920) IV SCH (16:57)
[2016-05-30] VITALS (8 sets, daily range): BP systolic 126–162; BP diastolic 56–70; O2SAT 95
[2016-05-30] MEDS: LEVALBUTEROL 1.25 MG/0.5 ML CONCENTRATE NEB INH SCH ×4 (01:17→20:47)
[2016-05-30] MEDS: IPRATROPIUM 0.02% SOLN 0.5MG/2.5 ML NEB INH SCH ×4 (01:17→20:47)
[2016-05-30 05:08] LABS: ALBUMIN/GLOBULIN RATIO 0.97 (1.00-1.93); BILIRUBIN,TOTAL 0.9 MG/DL (0.2-1.0); CALCIUM LEVEL 8.5 MG/DL (8.8-10.2); CREATININE FOR GFR 1.05 MG/DL (0.55-1.02); GLOMERULAR FILTRATION RATE 55.2 (>39); PHOSPHORUS LEVEL 3.4 MG/DL (2.5-4.9); TOTAL PROTEIN 6.1 GM/DL (6.4-8.2)
[2016-05-30 05:12] LABS: BASO % 0.1 % (0.0-1.0); EOS % 0.3 % (0.0-3.0); LARGE UNSTAINED CELL # 0.2 K/mm3 (0.0-0.4); LARGE UNSTAINED CELL % 1.6 % (0.0-4.0); LYMPH # 0.3 K/mm3 (1.5-4.5); LYMPH % 2.6 % (24.0-44.0); MEAN CORPUSCULAR HEMOGLOBIN 27.1 pg (27.0-33.0); MEAN CORPUSCULAR HGB CONC 30.1 g/dl (32.0-36.5); MONO # 0.9 K/mm3 (0.0-0.8); MONO % 6.9 % (0.0-5.0); NEUTROPHILS # 11.8 K/mm3 (1.8-7.7); NEUTROPHILS % 88.6 % (36.0-66.0); PLATELET COUNT, AUTOMATED 202 k/mm3 (150-450); RED CELL DISTRIBUTION WIDTH 15.4 % (11.5-14.5); WHITE BLOOD COUNT 13.3 K/mm3 (4.0-10.0)
[2016-05-30] MEDS: methylPREDNISolone INJ 40 MG/1 ML VIAL (J2920) IV SCH ×2 (05:31→17:27)
[2016-05-30] MEDS: HEPARIN SOD (PORCINE) 5000 UNITS/ML VIAL SQ SCH ×3 (05:32→21:28)
[2016-05-30 06:09] LABS: ABG BASE EXCESS 13.5 (-2.0-2.0); ABG PARTIAL PRESSURE O2 142.6 mmHg (75.0-100.0); ABG STANDARD HCO3 37.3 MEQ/L (22.0-26.0); ABG TOTAL CO2 41.9 MEQ/L (23.0-31.0); ABG pH (ARTERIAL) 7.429 UNITS (7.350-7.450)
[2016-05-30 06:30] LABS: ABG PARTIAL PRESSURE CO2 61.8 mmHg (35.0-45.0)
--- NOTE | 2016-05-30 07:50 | REP ---
Clinical: Follow up pneumothorax. Comparison: 05/29/2016. Findings: Right apical chest tube in stable position. Small residual right apical pneumothorax again noted. Pleuroparenchymal changes are otherwise stable and without new acute process. Impression: Small residual right apical pneumothorax. Bilateral pleuroparenchymal changes similar to prior examination. Signed by Low Monahan MD 05/30/2016 07:41 A
[2016-05-30] MEDS: HumaLOG INSULIN (NovoLOG) PER UNIT SC SCH ×4 (08:36→21:25)
[2016-05-30] MEDS: PANTOPRAZOLE 40MG INJ (PROTONIX) (C9113) IV SCH (09:40)
--- NOTE | 2016-05-30 19:15 | REP ---
Portable chest x-ray: Single view. History: Status post clamping of the chest tube. Comparison chest x-ray 07:00 a.m. from earlier this same date. Findings: There is a tiny right apical pneumothorax again visible, however, it does not appear larger than on the film done earlier on this same date. There is some subcutaneous emphysema on the right as before. Blunting of the left lateral pleural angle is seen. EKG electrodes are noted. Median sternotomy wires are seen. Impression: Tiny right apical pneumothorax persists, essentially unchanged from the 7:00 prior film. Signed by Romel Pate MD 05/30/2016 07:48 P
[2016-05-31] VITALS (7 sets, daily range): BP systolic 95–148; BP diastolic 54–69
[2016-05-31] MEDS: IPRATROPIUM 0.02% SOLN 0.5MG/2.5 ML NEB INH SCH ×4 (02:17→20:41)
[2016-05-31] MEDS: LEVALBUTEROL 1.25 MG/0.5 ML CONCENTRATE NEB INH SCH ×4 (02:17→20:41)
[2016-05-31] MEDS: methylPREDNISolone INJ 40 MG/1 ML VIAL (J2920) IV SCH (05:21)
[2016-05-31] MEDS: HEPARIN SOD (PORCINE) 5000 UNITS/ML VIAL SQ SCH ×3 (05:25→21:11)
[2016-05-31 05:32] LABS: ALBUMIN 2.8 GM/DL (3.2-5.2); ALBUMIN/GLOBULIN RATIO 0.88 (1.00-1.93); ALKALINE PHOSPHATASE 82 U/L (45-117); ALT/SGPT 80 U/L (12-78); ANION GAP 5 MEQ/L (8-16); AST/SGOT 33 U/L (15-37); BILIRUBIN,TOTAL 0.7 MG/DL (0.2-1.0); BLOOD UREA NITROGEN 41 MG/DL (7-18); CALCIUM LEVEL 8.1 MG/DL (8.8-10.2); CARBON DIOXIDE LEVEL 38 MEQ/L (21-32); CHLORIDE LEVEL 99 MEQ/L (98-107); CHOLESTEROL LEVEL 305 MG/DL (< 200); CREATININE FOR GFR 0.91 MG/DL (0.55-1.02); GLOMERULAR FILTRATION RATE > 60.0 (>39); GLUCOSE, FASTING 143 MG/DL (83-110); PHOSPHORUS LEVEL 3.6 MG/DL (2.5-4.9); POTASSIUM SERUM 4.5 MEQ/L (3.5-5.1); SODIUM LEVEL 142 MEQ/L (136-145); TRIGLYCERIDES LEVEL 234 MG/DL (<150)
[2016-05-31 05:38] LABS: BASO % 0.1 % (0.0-1.0); EOS % 0.1 % (0.0-3.0); LARGE UNSTAINED CELL # 0.1 K/mm3 (0.0-0.4); LYMPH # 0.3 K/mm3 (1.5-4.5); LYMPH % 1.8 % (24.0-44.0); MEAN CORPUSCULAR HEMOGLOBIN 27.5 pg (27.0-33.0); MEAN CORPUSCULAR HGB CONC 30.2 g/dl (32.0-36.5); MEAN CORPUSCULAR VOLUME 90.9 fl (80.0-96.0); MONO # 0.8 K/mm3 (0.0-0.8); MONO % 5.2 % (0.0-5.0); NEUTROPHILS # 13.3 K/mm3 (1.8-7.7); NEUTROPHILS % 91.8 % (36.0-66.0); PLATELET COUNT, AUTOMATED 212 k/mm3 (150-450); RED CELL DISTRIBUTION WIDTH 15.4 % (11.5-14.5); WHITE BLOOD COUNT 14.4 K/mm3 (4.0-10.0)
--- NOTE | 2016-05-31 07:24 | REP ---
Clinical: Follow up pneumothorax. Comparison: 05/30/2016. Findings: Right chest tube in stable position. A minuscule residual right apical pneumothorax noted. Bibasilar pleuroparenchymal changes similar to prior examination and no new acute process is appreciated. Mediastinum and cardiac silhouette stable. Skeletal structures stable. Impression: A very minuscule residual right apical pneumothorax is noted. No change in the remainder examination. Signed by Low Monahan MD 05/31/2016 07:15 A
[2016-05-31] MEDS: HumaLOG INSULIN (NovoLOG) PER UNIT SC SCH ×4 (07:30→20:55)
[2016-05-31] MEDS: PANTOPRAZOLE 40MG TAB (PROTONIX) PO SCH (08:58)
[2016-06-01] VITALS (8 sets, daily range): BP systolic 116–139; BP diastolic 57–80
[2016-06-01] MEDS: LEVALBUTEROL 1.25 MG/0.5 ML CONCENTRATE NEB INH SCH ×4 (01:34→20:00)
[2016-06-01] MEDS: IPRATROPIUM 0.02% SOLN 0.5MG/2.5 ML NEB INH SCH ×4 (01:34→20:00)
[2016-06-01 05:16] LABS: BASO # 0.1 K/mm3 (0.0-0.2); BASO % 0.5 % (0.0-1.0); EOS % 0.2 % (0.0-3.0); LARGE UNSTAINED CELL # 0.2 K/mm3 (0.0-0.4); LYMPH # 0.9 K/mm3 (1.5-4.5); LYMPH % 4.6 % (24.0-44.0); MEAN CORPUSCULAR HEMOGLOBIN 27.1 pg (27.0-33.0); MEAN CORPUSCULAR HGB CONC 29.8 g/dl (32.0-36.5); MEAN CORPUSCULAR VOLUME 91.1 fl (80.0-96.0); MONO # 0.8 K/mm3 (0.0-0.8); MONO % 4.9 % (0.0-5.0); NEUTROPHILS # 14.6 K/mm3 (1.8-7.7); NEUTROPHILS % 88.8 % (36.0-66.0); PLATELET COUNT, AUTOMATED 195 k/mm3 (150-450); RED CELL DISTRIBUTION WIDTH 16.7 % (11.5-14.5); WHITE BLOOD COUNT 16.4 K/mm3 (4.0-10.0)
[2016-06-01 05:34] LABS: ALBUMIN 2.8 GM/DL (3.2-5.2); ALBUMIN/GLOBULIN RATIO 0.93 (1.00-1.93); ALKALINE PHOSPHATASE 81 U/L (45-117); ALT/SGPT 61 U/L (12-78); ANION GAP 6 MEQ/L (8-16); AST/SGOT 22 U/L (15-37); BILIRUBIN,TOTAL 0.8 MG/DL (0.2-1.0); BLOOD UREA NITROGEN 36 MG/DL (7-18); CALCIUM LEVEL 8.4 MG/DL (8.8-10.2); CARBON DIOXIDE LEVEL 38 MEQ/L (21-32); CHLORIDE LEVEL 98 MEQ/L (98-107); CHOLESTEROL LEVEL 299 MG/DL (< 200); CREATININE FOR GFR 0.95 MG/DL (0.55-1.02); GLOMERULAR FILTRATION RATE > 60.0 (>39); GLUCOSE, FASTING 93 MG/DL (83-110); SODIUM LEVEL 142 MEQ/L (136-145); TOTAL PROTEIN 5.8 GM/DL (6.4-8.2); TRIGLYCERIDES LEVEL 271 MG/DL (<150)
[2016-06-01 05:50] LABS: PHOSPHORUS LEVEL 1.9 MG/DL (2.5-4.9)
[2016-06-01] MEDS: HEPARIN SOD (PORCINE) 5000 UNITS/ML VIAL SQ SCH ×2 (06:17→14:29)
[2016-06-01] MEDS: HumaLOG INSULIN (NovoLOG) PER UNIT SC SCH ×4 (07:30→21:00)
--- NOTE | 2016-06-01 08:53 | REP ---
Portable chest x-ray: Single view. History: Pneumothorax. Findings: The right sided chest tube has been removed. There is no visible pneumothorax. Only a tiny amount of extrathoracic soft tissue gas is seen on the right. There is blunting of the left lateral pleural angle again noted. Prior sternotomy wires and mild cardiac enlargement is again seen. Pulmonary vasculature is slightly cephalized. Signed by Romel Pate MD 06/01/2016 08:06 P
[2016-06-01] MEDS: DULoxetine 30 MG CAP (CYMBALTA) PO SCH (09:00)
[2016-06-01] MEDS: ADVAIR DISKUS 250/50 INH PWD INH SCH ×2 (09:00→20:09)
[2016-06-01] MEDS: NEUTRA-PHOS 1.25 GM PACKET PO SCH ×2 (09:15→21:10)
[2016-06-01] MEDS: PANTOPRAZOLE 40MG TAB (PROTONIX) PO SCH (09:15)
[2016-06-01] MEDS: predniSONE 20 MG TAB PO SCH (09:16)
[2016-06-01] MEDS ORDERED: SLF 3 ML SYR IV PRN (12:45)
--- NOTE | 2016-06-01 13:16 | IPNPDOC ---
Text Note Date of Service The patient was seen on 06/01/16 at 12:51. NOTE Subjective: Patient is a 70 year old female with a PMHx of CAD s/p CABG (2010), COPD with Home O2 (NC2L), Chronic atrial fibrillation, CHF, HTN, DM2, DLP, Depression, and Obesity who presented to [facility] because of shortness of breath. Patient presented to [place] with SOB and was intubated an required mechanical ventilation. Imaging revealed that there was no PE, but did have infiltrate and was being treated for HCAP pneumonia and COPD exacerbation. Upon arrival at [facility] , she was found to have a right sided pneumothorax. Chest tube was subsequently placed. Patient has been extubated and been tolerating BIPAP, her CT had been removed. Patient has been seen and examined at the bedside. Clinically she notes that she is very fatigued, but remains oriented x 3. Objective: Vitals (See below) General: Lying in bed, no acute distress, comfortable, Oriented x3, Drowsy HEENT: NC, AT CVS: RRR, +S1S2 Lungs: Fair air entry b/l, -w/r/r Abdomen: Soft, ND, NT, +BSx4 Extremities: -Edema, -calf tenderness Assessment and plan: 1. s/p Acute on Chronic hypoxic respiratory failrue - likely 2/2 acute COPD exacerbation, and possible CAP pneumonia - Clinically presented from [place] after being intubated, presented with SOB, cough, wheezing - Physical today is unrevealing - s/p BIPAP and endotracheal intubation - s/p Azithromycin and Ceftriaxone; s/p Solumedrol - c/w Ipratropium, Levalbuterol, Prednisone PO (will continue to taper) - will add Advair 2. Diastolic CHF, EF of 65% - no evidence of exacerbation at this time - no further lasix IV at this time - will restart standing dose of lasix PO 3. Chronic atrial fibrillation - rate controlled with Diltiazem 60 q6h; will transition to long acting tomorrow AM - INR pending - anticoagulated with Coumadin 4. Leukocytosis - possibly 2/2 corticosteroids - remains afebrile - will monitor for now - will check UA 5. Normocytic anemia - Hg stable - will continue to follow 6. DM2 - c/w ISS 7. DLP - will restart Crestor 8. Depression - c/w Duloxetine 9. CAD s/p CABG (2010) 10. HTN - BP well controlled at 135/60 - c/w cardizem 11. Obesity 12. GI prophylaxis - c/w protonix 13. DVT prophylaxis - c/w Heparin Disposition: - Very fatigued; will continue with physical therapy VS,Fishbone, I+O VS, Fishbone, I+O Laboratory Tests 06/01/16 05:02 Calcium Level 8.4 L, Phosphorus Level 1.9 #L, Aspartate Amino Transf (AST/SGOT) 22, Alanine Aminotransferase (ALT/SGPT) 61, Lactate Dehydrogenase 235, Total Creatine Kinase 20 L, Alkaline Phosphatase 81, Total Bilirubin 0.8, Triglycerides Level 271 H, Cholesterol Level 299 H, Total Protein 5.8 L, Albumin 2.8 L, Red Blood Count 3.99 L, Mean Corpuscular Volume 91.1, Mean Corpuscular Hemoglobin 27.1, Mean Corpuscular Hemoglobin Concent 29.8 L, Red Cell Distribution Width 16.7 H, Neutrophils (%) (Auto) 88.8 H, Lymphocytes (%) ( Auto) 4.6 L, Monocytes (%) (Auto) 4.9, Eosinophils (%) (Auto) 0.2, Basophils (% ) (Auto) 0.5, Neutrophils # (Auto) 14.6 H, Lymphocytes # (Auto) 0.9 L, Monocytes # (Auto) 0.8, Eosinophils # (Auto) 0.0, Basophils # (Auto) 0.1 Vital Signs Date Time Temp Pulse Resp B/P Pulse Ox O2 Delivery O2 Flow Rate FiO2 06/01/16 11:53 103 135/60 06/01/16 11:30 97.7 22 95 Nasal Cannula 2.0 05/29/16 21:22 30 I&O- Last 24 Hours up to 6 AM 06/01/16 06:00 Intake Total 910 ml Output Total 1500 ml Balance -590 ml DOT MAYER MD Jun 01, 2016 13:16 I&O- Last 24 Hours up to 6 AM 06/01/16 06:00 Intake Total 910 ml Output Total 1500 ml Balance -590 ml DOT MAYER MD Jun 01, 2016 13:16
[2016-06-01 13:35] LABS: INR 0.96
[2016-06-01] MEDS: ASPIRIN 81 MG ENTERIC TAB PO SCH (14:28)
[2016-06-01] MEDS: FUROSEMIDE 40 MG TAB PO SCH (14:28)
[2016-06-01] MEDS: SLF 3 ML SYR IV SCH ×2 (14:29→21:11)
[2016-06-01] MEDS ORDERED: HEPARIN DRIP 25,000 UNITS in APPROPRIATE DILUENT 1 EA IV SCH (14:35)
[2016-06-01] MEDS ORDERED: HEPARIN SOD (PORCINE) 5000 UNITS/ML VIAL IV PRN (14:45)
[2016-06-01] MEDS: ENOXAPARIN 80 MG/0.8 ML SYRINGE (J1650) SC SCH (18:00)
[2016-06-01] MEDS: WARFARIN SOD 5 MG TAB PO SCH (18:13)
[2016-06-01] MEDS: ROSUVASTATIN 10 MG TAB (CRESTOR) PO SCH (21:10)
[2016-06-01] MEDS: MONTELUKAST 10 MG TAB PO SCH (21:10)
[2016-06-02] MEDS: LEVALBUTEROL 1.25 MG/0.5 ML CONCENTRATE NEB INH SCH ×4 (01:42→20:00)
[2016-06-02] MEDS: IPRATROPIUM 0.02% SOLN 0.5MG/2.5 ML NEB INH SCH ×4 (01:43→20:00)
[2016-06-02 04:00] VITALS: BP 148/66
[2016-06-02 05:33] LABS: INR 1.06
[2016-06-02 05:34] LABS: BASO % 0.1 % (0.0-1.0); EOS # 0.1 K/mm3 (0.0-0.50); EOS % 0.9 % (0.0-3.0); LARGE UNSTAINED CELL # 0.1 K/mm3 (0.0-0.4); LYMPH # 0.7 K/mm3 (1.5-4.5); LYMPH % 5.7 % (24.0-44.0); MEAN CORPUSCULAR HGB CONC 30.2 g/dl (32.0-36.5); MEAN CORPUSCULAR VOLUME 89.1 fl (80.0-96.0); MONO # 0.6 K/mm3 (0.0-0.8); MONO % 4.4 % (0.0-5.0); NEUTROPHILS # 11.1 K/mm3 (1.8-7.7); PLATELET COUNT, AUTOMATED 142 k/mm3 (150-450); RED CELL DISTRIBUTION WIDTH 15.1 % (11.5-14.5); WHITE BLOOD COUNT 12.6 K/mm3 (4.0-10.0)
[2016-06-02 05:46] LABS: ALBUMIN 2.8 GM/DL (3.2-5.2); ALBUMIN/GLOBULIN RATIO 1.04 (1.00-1.93); ALKALINE PHOSPHATASE 69 U/L (45-117); ALT/SGPT 44 U/L (12-78); ANION GAP 4 MEQ/L (8-16); AST/SGOT 17 U/L (15-37); BILIRUBIN,TOTAL 0.9 MG/DL (0.2-1.0); BLOOD UREA NITROGEN 30 MG/DL (7-18); CALCIUM LEVEL 8.2 MG/DL (8.8-10.2); CARBON DIOXIDE LEVEL 40 MEQ/L (21-32); CHLORIDE LEVEL 97 MEQ/L (98-107); GLOMERULAR FILTRATION RATE > 60.0 (>39); GLUCOSE, FASTING 90 MG/DL (83-110); POTASSIUM SERUM 4.1 MEQ/L (3.5-5.1); SODIUM LEVEL 141 MEQ/L (136-145); TOTAL PROTEIN 5.5 GM/DL (6.4-8.2)
[2016-06-02] MEDS: ENOXAPARIN 80 MG/0.8 ML SYRINGE (J1650) SC SCH ×2 (06:30→17:24)
[2016-06-02] MEDS: SLF 3 ML SYR IV SCH ×3 (06:30→21:12)
[2016-06-02] MEDS: ADVAIR DISKUS 250/50 INH PWD INH SCH ×2 (07:23→20:09)
[2016-06-02 07:30] VITALS: BP 150/66
[2016-06-02] MEDS: HumaLOG INSULIN (NovoLOG) PER UNIT SC SCH ×4 (07:30→21:00)
[2016-06-02] MEDS: diltiaZEM **CD** 180 MG CAP PO SCH (08:44)
[2016-06-02] MEDS: FUROSEMIDE 40 MG TAB PO SCH (08:45)
[2016-06-02] MEDS: PANTOPRAZOLE 40MG TAB (PROTONIX) PO SCH (08:45)
[2016-06-02] MEDS: DULoxetine 30 MG CAP (CYMBALTA) PO SCH (08:45)
[2016-06-02] MEDS: ASPIRIN 81 MG ENTERIC TAB PO SCH (08:45)
[2016-06-02] MEDS: NEUTRA-PHOS 1.25 GM PACKET PO SCH ×2 (08:45→21:11)
[2016-06-02] MEDS: predniSONE 20 MG TAB PO SCH (08:45)
--- NOTE | 2016-06-02 09:14 | REP ---
Portable chest x-ray: AP semi-erect view. History: Right-sided pneumothorax. Comparison chest x-ray June 01, 2016. Findings: There is no visible pneumothorax on either side. There is slight blunting of the left lateral pleural angle again noted unchanged. Prior median sternotomy wires and EKG electrodes are seen. Heart size is borderline unchanged. No infiltrate is seen. Lungs are somewhat hyperinflated overall. Impression: No pneumothorax seen. Lung ayala unchanged. Signed by Romel Pate MD 06/02/2016 10:23 A
[2016-06-02 11:30] VITALS: BP 149/70
--- NOTE | 2016-06-02 11:58 | IPNPDOC ---
Text Note Date of Service The patient was seen on 06/02/16 at 11:50. NOTE Subjective: Patient is a 70 year old female with a PMHx of CAD s/p CABG (2010), COPD with Home O2 (NC2L), Chronic atrial fibrillation, CHF, HTN, DM2, DLP, Depression, and Obesity who presented to [facility] from [facility] because of shortness of breath. Patient presented to [place] with SOB and was intubated an required mechanical ventilation. Imaging revealed that there was no PE, but did have infiltrate and was being treated for HCAP pneumonia and COPD exacerbation. Upon arrival at [facility] , she was found to have a right sided pneumothorax. Chest tube was subsequently placed. Patient has been extubated and been tolerating BIPAP, her CT had been removed. Patient has been seen and examined at the bedside. She noted this morning that she was felling very depressed and is very sleepy. She showed me that she is able to get up in bed. Has made some progress with physical therapy by ambulating. Objective: Vitals (See below) General: Lying in bed, no acute distress, comfortable, Oriented x3, Drowsy HEENT: NC, AT CVS: RRR, +S1S2 Lungs: Fair air entry b/l, -w/r/r Abdomen: Soft, ND, NT, +BSx4 Extremities: -Edema, -calf tenderness Assessment and plan: 1. s/p Acute on Chronic hypoxic respiratory failure - likely 2/2 acute COPD exacerbation, and CAP pneumonia - Clinically presented from [place] after being intubated, presented with SOB, cough, wheezing - Physical today is unrevealing - s/p BIPAP and endotracheal intubation - s/p Azithromycin and Ceftriaxone; s/p Solumedrol - c/w Ipratropium, Levalbuterol, Advair and Prednisone PO - will decrease dose of Prednisone to 10 mg PO for 2 more days until completion 2. s/p Pneumothorax - s/p Chest tube placement and removal 3. Diastolic CHF, EF of 65% - no evidence of exacerbation at this time - c/w home dose of Lasix PO 4. Chronic atrial fibrillation - c/w rate control with Diltiazem - returned to continuous release - INR still sub-therapeutic - continue with Lovenox (Therapeutic) and bridge back to Coumadin 5. Leukocytosis - possibly 2/2 corticosteroids, less likely infectious etiology - WBC count trending down - remains afebrile - completed course of antibiotics for CAP pneumonia - UA pending - will continue to follow WBC 6. Normocytic anemia - Hg stable - will continue to follow 7. DM2 - c/w ISS 8. DLP - will restart Crestor 9. Depression - c/w Duloxetine 10. CAD s/p CABG (2010) - c/w Aspirin and Rosuvastatin 11. HTN - BP elevated this morning - c/w cardizem - will add Lisinopril 5mg QHS with holding parameters 12. Obesity 13. GI prophylaxis - c/w protonix 14. DVT prophylaxis - c/w Heparin Disposition: - Very fatigued, possibly from depression - restarted duloxetine yesterday; will continue with physical therapy VS,Marlenee, I+O VS, Fishbone, I+O Laboratory Tests 06/02/16 04:55 Calcium Level 8.2 L, Aspartate Amino Transf (AST/SGOT) 17, Alanine Aminotransferase (ALT/SGPT) 44, Alkaline Phosphatase 69, Total Bilirubin 0.9, Total Protein 5.5 L, Albumin 2.8 L, Red Blood Count 3.80 L, Mean Corpuscular Volume 89.1, Mean Corpuscular Hemoglobin 27.0, Mean Corpuscular Hemoglobin Concent 30.2 L, Red Cell Distribution Width 15.1 H, Neutrophils (%) (Auto) 88.0 H, Lymphocytes (%) (Auto) 5.7 L, Monocytes (%) (Auto) 4.4, Eosinophils (%) (Auto ) 0.9, Basophils (%) (Auto) 0.1, Neutrophils # (Auto) 11.1 H, Lymphocytes # ( Auto) 0.7 L, Monocytes # (Auto) 0.6, Eosinophils # (Auto) 0.1, Basophils # (Auto ) 0.0 Vital Signs Date Time Temp Pulse Resp B/P Pulse Ox O2 Delivery O2 Flow Rate FiO2 06/02/16 08:44 110 150/66 06/02/16 04:00 Nasal Cannula 2.0 06/02/16 04:00 97.2 20 96 05/29/16 21:22 30 I&O- Last 24 Hours up to 6 AM 06/02/16 06:00 Intake Total 960 ml Output Total 1050 ml Balance -90 ml MAYER,VIJESH MD Jun 02, 2016 11:58
[2016-06-02 16:00] VITALS: BP 116/55
[2016-06-02] MEDS: WARFARIN SOD 5 MG TAB PO SCH (17:24)
[2016-06-02 20:00] VITALS: BP 128/58
[2016-06-02] MEDS: LISINOPRIL 5 MG TAB PO SCH (21:12)
[2016-06-02] MEDS: MONTELUKAST 10 MG TAB PO SCH (21:12)
[2016-06-02] MEDS: ROSUVASTATIN 10 MG TAB (CRESTOR) PO SCH (21:12)
[2016-06-02 23:59] VITALS: BP 93/59
[2016-06-03] MEDS: IPRATROPIUM 0.02% SOLN 0.5MG/2.5 ML NEB INH SCH ×4 (01:21→19:19)
[2016-06-03] MEDS: LEVALBUTEROL 1.25 MG/0.5 ML CONCENTRATE NEB INH SCH ×4 (01:21→19:19)
[2016-06-03 04:00] VITALS: BP 150/67
[2016-06-03] MEDS: ENOXAPARIN 80 MG/0.8 ML SYRINGE (J1650) SC SCH ×2 (06:10→17:21)
[2016-06-03] MEDS: SLF 3 ML SYR IV SCH ×3 (06:11→21:38)
[2016-06-03 06:20] LABS: EOS # 0.2 K/mm3 (0.0-0.50); EOS % 1.8 % (0.0-3.0); LARGE UNSTAINED CELL # 0.1 K/mm3 (0.0-0.4); LARGE UNSTAINED CELL % 0.9 % (0.0-4.0); LYMPH # 0.7 K/mm3 (1.5-4.5); LYMPH % 5.3 % (24.0-44.0); MEAN CORPUSCULAR HGB CONC 30.5 g/dl (32.0-36.5); MEAN CORPUSCULAR VOLUME 88.6 fl (80.0-96.0); MONO # 0.5 K/mm3 (0.0-0.8); PLATELET COUNT, AUTOMATED 121 k/mm3 (150-450); RED CELL DISTRIBUTION WIDTH 15.4 % (11.5-14.5); WHITE BLOOD COUNT 12.5 K/mm3 (4.0-10.0)
[2016-06-03 06:24] LABS: INR 1.25
[2016-06-03 06:37] LABS: ALBUMIN 2.7 GM/DL (3.2-5.2); ALBUMIN/GLOBULIN RATIO 1.08 (1.00-1.93); ALKALINE PHOSPHATASE 69 U/L (45-117); ALT/SGPT 33 U/L (12-78); ANION GAP 5 MEQ/L (8-16); AST/SGOT 12 U/L (15-37); BILIRUBIN,TOTAL 0.7 MG/DL (0.2-1.0); BLOOD UREA NITROGEN 23 MG/DL (7-18); CALCIUM LEVEL 8.4 MG/DL (8.8-10.2); CARBON DIOXIDE LEVEL 41 MEQ/L (21-32); CHLORIDE LEVEL 98 MEQ/L (98-107); CREATININE FOR GFR 0.82 MG/DL (0.55-1.02); GLOMERULAR FILTRATION RATE > 60.0 (>39); GLUCOSE, FASTING 106 MG/DL (83-110); MAGNESIUM LEVEL 1.8 MG/DL (1.8-2.4); POTASSIUM SERUM 3.6 MEQ/L (3.5-5.1); SODIUM LEVEL 144 MEQ/L (136-145); TOTAL PROTEIN 5.2 GM/DL (6.4-8.2)
[2016-06-03] MEDS: ADVAIR DISKUS 250/50 INH PWD INH SCH ×2 (07:05→19:18)
[2016-06-03] MEDS: HumaLOG INSULIN (NovoLOG) PER UNIT SC SCH ×4 (07:58→21:00)
[2016-06-03 08:00] VITALS: BP 111/54
[2016-06-03] MEDS ORDERED: ONDANSETRON 4MG/2ML VIAL (J2405) IV ONE (08:15)
[2016-06-03] MEDS: diltiaZEM **CD** 180 MG CAP PO SCH (09:55)
[2016-06-03] MEDS: ASPIRIN 81 MG ENTERIC TAB PO SCH (09:55)
[2016-06-03] MEDS: FUROSEMIDE 40 MG TAB PO SCH (09:56)
[2016-06-03] MEDS: NEUTRA-PHOS 1.25 GM PACKET PO SCH ×2 (09:56→21:38)
[2016-06-03] MEDS: PANTOPRAZOLE 40MG TAB (PROTONIX) PO SCH (09:56)
[2016-06-03] MEDS: DULoxetine 30 MG CAP (CYMBALTA) PO SCH (09:56)
[2016-06-03] MEDS: predniSONE 10 MG TAB PO SCH (09:56)
[2016-06-03] MEDS ORDERED: SODIUM CHLORIDE NASAL 0.65% SPRAY BTL (OCEAN) PRN (10:45)
[2016-06-03] MEDS ORDERED: MAGIC MOUTHWASH SUSPENSION BTL SS PRN (10:45)
[2016-06-03 12:00] VITALS: BP 103/50
[2016-06-03] MEDS: NYSTATIN 500,000 U/5 ML SUSP UDC SS SCH ×3 (12:07→21:38)
--- NOTE | 2016-06-03 13:08 | IPNPDOC ---
Text Note Date of Service The patient was seen on 06/03/16 at 13:02. NOTE Subjective: Patient is a 70 year old female with a PMHx of CAD s/p CABG (2010), COPD with Home O2 (NC2L), Chronic atrial fibrillation, CHF, HTN, DM2, DLP, Depression, and Obesity who presented to [facility] from [facility] because of shortness of breath. Patient presented to [place] with SOB and was intubated an required mechanical ventilation. Imaging revealed that there was no PE, but did have infiltrate and was being treated for HCAP pneumonia and COPD exacerbation. Upon arrival at [facility] , she was found to have a right sided pneumothorax. Chest tube was subsequently placed. Patient has been extubated and been tolerating BIPAP, her chest tube had been removed. Patient has been seen and examined while sitting up in chair. She reports some drowsiness. She denies any pain. Has made some progress with physical therapy. Objective: Vitals (See below) General: Lying in bed, no acute distress, comfortable, Oriented x3, Drowsy HEENT: NC, AT CVS: RRR, +S1S2 Lungs: Fair air entry b/l, -w/r/r Abdomen: Soft, ND, NT, +BSx4 Extremities: -Edema, -calf tenderness Assessment and plan: 1. s/p Acute on Chronic hypoxic respiratory failure - likely 2/2 acute COPD exacerbation, and CAP pneumonia - Clinically presented from [place] after being intubated, presented with SOB, cough, wheezing - Physical today is unrevealing - s/p BIPAP and endotracheal intubation - s/p Azithromycin and Ceftriaxone; s/p Solumedrol - c/w Ipratropium, Levalbuterol, Advair and Prednisone PO - c/w Prednisone 10 mg PO on 06/03 and 06/04 2. s/p Pneumothorax - s/p Chest tube placement and removal 3. Diastolic CHF, EF of 65% - no evidence of exacerbation at this time - c/w home dose of Lasix PO 4. Chronic atrial fibrillation - c/w rate control with Diltiazem - returned to continuous release - INR still sub-therapeutic at 1.25 - continue with Lovenox (Therapeutic) and bridge back to Coumadin - Will give Coumadin 5mg tonight 5. Leukocytosis - possibly 2/2 corticosteroids, less likely infectious etiology - WBC count trending down - remains afebrile - completed course of antibiotics for CAP pneumonia - UA pending - will continue to follow WBC 6. Normocytic anemia - Hg stable - will continue to follow 7. DM2 - c/w ISS 8. DLP - c/w Crestor 9. Depression - c/w Duloxetine 10. CAD s/p CABG (2010) - c/w Aspirin and Rosuvastatin 11. HTN - BP elevated this morning - c/w cardizem and Lisinopril 5mg QHS with holding parameters 12. Obesity 13. GI prophylaxis - c/w protonix 14. DVT prophylaxis - c/w Heparin Disposition: - c/w physical therapy - determine disposition status - continue to bridge back to warfarin VS,Fishbone, I+O VS, Fishbone, I+O Laboratory Tests 06/03/16 05:54 Calcium Level 8.4 L, Aspartate Amino Transf (AST/SGOT) 12 L, Alanine Aminotransferase (ALT/SGPT) 33, Alkaline Phosphatase 69, Total Bilirubin 0.7, Total Protein 5.2 L, Albumin 2.7 L, Red Blood Count 3.65 L, Mean Corpuscular Volume 88.6, Mean Corpuscular Hemoglobin 27.0, Mean Corpuscular Hemoglobin Concent 30.5 L, Red Cell Distribution Width 15.4 H, Neutrophils (%) (Auto) 88.0 H, Lymphocytes (%) (Auto) 5.3 L, Monocytes (%) (Auto) 4.0, Eosinophils (%) (Auto ) 1.8, Basophils (%) (Auto) 0.0, Neutrophils # (Auto) 11.0 H, Lymphocytes # ( Auto) 0.7 L, Monocytes # (Auto) 0.5, Eosinophils # (Auto) 0.2, Basophils # (Auto ) 0.0 Vital Signs Date Time Temp Pulse Resp B/P Pulse Ox O2 Delivery O2 Flow Rate FiO2 06/03/16 12:00 96.3 111 18 103/50 96 Nasal Cannula 2.0 05/29/16 21:22 30 I&O- Last 24 Hours up to 6 AM 06/03/16 06:00 Intake Total 1000 ml Output Total 600 ml Balance 400 ml DOT MAYER MD Jun 03, 2016 13:08
[2016-06-03 16:00] VITALS: BP 107/51
[2016-06-03] MEDS ORDERED: WARFARIN SOD 10 MG TAB PO ONE (17:00)
[2016-06-03] MEDS ORDERED: WARFARIN SOD 5 MG TAB PO ONE (18:00)
[2016-06-03 19:19] VITALS: O2SAT 97
[2016-06-03 20:41] VITALS: BP 109/55
[2016-06-03] MEDS: LISINOPRIL 5 MG TAB PO SCH (21:00)
[2016-06-03] MEDS: MONTELUKAST 10 MG TAB PO SCH (21:38)
[2016-06-03] MEDS: ROSUVASTATIN 10 MG TAB (CRESTOR) PO SCH (21:38)
[2016-06-04] VITALS (9 sets, daily range): BP systolic 113–150; BP diastolic 51–77; O2SAT 97
[2016-06-04] MEDS: IPRATROPIUM 0.02% SOLN 0.5MG/2.5 ML NEB INH SCH ×4 (01:24→19:16)
[2016-06-04] MEDS: LEVALBUTEROL 1.25 MG/0.5 ML CONCENTRATE NEB INH SCH ×4 (01:25→19:16)
[2016-06-04 02:36] LABS: EOS # 0.2 K/mm3 (0.0-0.50); LARGE UNSTAINED CELL # 0.1 K/mm3 (0.0-0.4); LYMPH # 0.6 K/mm3 (1.5-4.5); MEAN CORPUSCULAR HGB CONC 31.3 g/dl (32.0-36.5); MEAN CORPUSCULAR VOLUME 89.7 fl (80.0-96.0); MONO # 0.6 K/mm3 (0.0-0.8); MONO % 5.1 % (0.0-5.0); NEUTROPHILS # 10.8 K/mm3 (1.8-7.7); NEUTROPHILS % 86.9 % (36.0-66.0); PLATELET COUNT, AUTOMATED 104 k/mm3 (150-450); RED CELL DISTRIBUTION WIDTH 15.6 % (11.5-14.5); WHITE BLOOD COUNT 12.4 K/mm3 (4.0-10.0)
[2016-06-04 02:37] LABS: ALBUMIN 2.7 GM/DL (3.2-5.2); ALBUMIN/GLOBULIN RATIO 0.93 (1.00-1.93); BILIRUBIN,TOTAL 0.6 MG/DL (0.2-1.0); CALCIUM LEVEL 7.9 MG/DL (8.8-10.2); CREATININE FOR GFR 1.09 MG/DL (0.55-1.02); GLOMERULAR FILTRATION RATE 52.8 (>39); MAGNESIUM LEVEL 1.8 MG/DL (1.8-2.4); TOTAL PROTEIN 5.6 GM/DL (6.4-8.2)
[2016-06-04 03:03] LABS: INR 1.52
[2016-06-04] MEDS: ENOXAPARIN 80 MG/0.8 ML SYRINGE (J1650) SC SCH (06:13)
[2016-06-04] MEDS: SLF 3 ML SYR IV SCH ×3 (06:13→22:00)
[2016-06-04] MEDS: HumaLOG INSULIN (NovoLOG) PER UNIT SC SCH ×4 (07:53→21:47)
[2016-06-04] MEDS: DULoxetine 30 MG CAP (CYMBALTA) PO SCH (07:53)
[2016-06-04] MEDS: FUROSEMIDE 40 MG TAB PO SCH (07:54)
[2016-06-04] MEDS: predniSONE 10 MG TAB PO SCH (07:54)
[2016-06-04] MEDS: NEUTRA-PHOS 1.25 GM PACKET PO SCH ×2 (07:54→22:42)
[2016-06-04] MEDS: NYSTATIN 500,000 U/5 ML SUSP UDC SS SCH ×3 (07:54→22:41)
[2016-06-04] MEDS: ASPIRIN 81 MG ENTERIC TAB PO SCH (07:54)
[2016-06-04] MEDS: diltiaZEM **CD** 180 MG CAP PO SCH (07:54)
[2016-06-04] MEDS: ADVAIR DISKUS 250/50 INH PWD INH SCH ×2 (08:06→19:13)
[2016-06-04] MEDS: FAMOTIDINE 20 MG TAB PO SCH ×2 (08:15→22:42)
--- NOTE | 2016-06-04 13:13 | IPNPDOC ---
Text Note Date of Service The patient was seen on 06/04/16 at 12:26. NOTE Subjective: Patient is a 70 year old female with a PMHx of CAD s/p CABG (2010), COPD with Home O2 (NC2L), Chronic atrial fibrillation, CHF, HTN, DM2, DLP, Depression, and Obesity who presented to [facility] from [facility] because of shortness of breath. Patient presented to [place] with SOB and was intubated an required mechanical ventilation. Imaging revealed that there was no PE, but did have infiltrate and was being treated for HCAP pneumonia and COPD exacerbation. Upon arrival at [facility] , she was found to have a right sided pneumothorax. Chest tube was subsequently placed. Patient has been extubated and been tolerating BIPAP, her chest tube had been removed. Nursing has noted that there has been more bleeding from the chest tube and has had hematuria. Patient has been seen and examined while in bed. She is a little drowsy, but denies any pain. Objective: Vitals (See below) General: Lying in bed, no acute distress, comfortable, Oriented x3, Drowsy HEENT: NC, AT CVS: RRR, +S1S2 Lungs: Fair air entry b/l, -w/r/r Chest: Right posterior chest wall hematoma Abdomen: Soft, ND, NT, +BSx4 Extremities: -Edema, -calf tenderness Assessment and plan: 1. s/p Pneumothorax - s/p Chest tube placement and removal - Has been oozing blood; will discontinue Coumadin and Lovenox therapeutic at this time until stabilized 2. Hematuria - possibly 2/2 anticoagulation - Will send for UA - Will start irrigation if persistent - will hold anticoagulation at this point 3. s/p Acute on Chronic hypoxic respiratory failure - likely 2/2 acute COPD exacerbation, and CAP pneumonia - Clinically presented from [place] after being intubated, presented with SOB, cough, wheezing - Physical today is unrevealing - s/p BIPAP and endotracheal intubation - s/p Azithromycin and Ceftriaxone; s/p Solumedrol - c/w Ipratropium, Levalbuterol, Advair and Prednisone PO - Will discontinue prednisone today 4. Diastolic CHF, EF of 65% - no evidence of exacerbation at this time - c/w home dose of Lasix PO 5. Chronic atrial fibrillation - c/w rate control with Diltiazem - returned to continuous release - INR still sub-therapeutic at 1.25 - Hold anticoagulation (re: hematuria and bleeding chest tube insertion) 6. Leukocytosis - possibly 2/2 corticosteroids, less likely infectious etiology - WBC count trending down - remains afebrile - completed course of antibiotics for CAP pneumonia - UA pending - will continue to follow WBC 7. Normocytic anemia - Hg stable - will continue to follow 8. DM2 - c/w ISS 9. DLP - c/w Crestor 10. Depression - c/w Duloxetine 11. CAD s/p CABG (2010) - c/w Aspirin and Rosuvastatin 12. HTN - BP elevated this morning - c/w cardizem and Lisinopril 5mg QHS with holding parameters 13. Obesity 14. GI prophylaxis - c/w protonix 15. DVT prophylaxis - c/w Heparin Disposition: - c/w physical therapy - determine disposition status - Will hold anticoagulation and will recheck H&H VS,Fishbone, I+O VS, Fishbone, I+O Laboratory Tests 06/04/16 01:54 Calcium Level 7.9 L, Aspartate Amino Transf (AST/SGOT) 12 L, Alanine Aminotransferase (ALT/SGPT) 30, Alkaline Phosphatase 64, Total Bilirubin 0.6, Total Protein 5.6 L, Albumin 2.7 L, Red Blood Count 3.41 L, Mean Corpuscular Volume 89.7, Mean Corpuscular Hemoglobin 28.0, Mean Corpuscular Hemoglobin Concent 31.3 L, Red Cell Distribution Width 15.6 H, Neutrophils (%) (Auto) 86.9 H, Lymphocytes (%) (Auto) 5.0 L, Monocytes (%) (Auto) 5.1 H, Eosinophils (%) ( Auto) 2.0, Basophils (%) (Auto) 0.0, Neutrophils # (Auto) 10.8 H, Lymphocytes # (Auto) 0.6 L, Monocytes # (Auto) 0.6, Eosinophils # (Auto) 0.2, Basophils # ( Auto) 0.0 Vital Signs Date Time Temp Pulse Resp B/P Pulse Ox O2 Delivery O2 Flow Rate FiO2 06/04/16 12:00 97.9 109 18 130/65 92 Nasal Cannula 2.0 05/29/16 21:22 30 I&O- Last 24 Hours up to 6 AM 06/04/16 06:00 Intake Total 720 ml Output Total 450 ml Balance 270 ml DOT MAYER MD Jun 04, 2016 13:13
[2016-06-04 13:17] LABS: DIFF SLIDE NUMBER 105; MEAN CORPUSCULAR HEMOGLOBIN 27.3 pg (27.0-33.0); MEAN CORPUSCULAR HGB CONC 30.4 g/dl (32.0-36.5); MEAN CORPUSCULAR VOLUME 89.9 fl (80.0-96.0); RED CELL DISTRIBUTION WIDTH 15.8 % (11.5-14.5); WHITE BLOOD COUNT 12.2 K/mm3 (4.0-10.0)
[2016-06-04 13:23] LABS: PLATELET COUNT, AUTOMATED 91 k/mm3 (150-450)
[2016-06-04 13:26] LABS: EOSINOPHILS 2 % (0-5); HYPOCHROMASIA 2+
[2016-06-04 13:27] LABS: ANISOCYTOSIS 1+
[2016-06-04 14:09] LABS: MICROSCOPIC INDICATED? MAN YES (NO)
[2016-06-04 14:12] LABS: BACTERIA, URINE MOD AMOUNT; HYALINE CAST, URINE NONE SEEN /lpf (0-1); RBC, URINE TNTC /hpf (0-3); SQUAMOUS EPITHELIAL CELL URINE MOD AMOUNT /hpf (SMALL AMT); WBC, URINE 30-40 /hpf (0-3)
[2016-06-04 14:13] LABS: MICROSCOPIC EXAM PERFORMED
[2016-06-04 19:28] LABS: BASO % 0.1 % (0.0-1.0); EOS # 0.3 K/mm3 (0.0-0.50); EOS % 2.7 % (0.0-3.0); LARGE UNSTAINED CELL # 0.1 K/mm3 (0.0-0.4); LARGE UNSTAINED CELL % 0.8 % (0.0-4.0); LYMPH # 0.6 K/mm3 (1.5-4.5); LYMPH % 4.9 % (24.0-44.0); MEAN CORPUSCULAR HEMOGLOBIN 27.2 pg (27.0-33.0); MEAN CORPUSCULAR HGB CONC 30.3 g/dl (32.0-36.5); MEAN CORPUSCULAR VOLUME 89.8 fl (80.0-96.0); MONO # 0.5 K/mm3 (0.0-0.8); MONO % 3.8 % (0.0-5.0); NEUTROPHILS # 10.4 K/mm3 (1.8-7.7); NEUTROPHILS % 87.7 % (36.0-66.0); PLATELET COUNT, AUTOMATED 103 k/mm3 (150-450); RED CELL DISTRIBUTION WIDTH 15.9 % (11.5-14.5); RETIC HEMOGLOBIN CONTENT CHr 32.3 PG (24-36); RETICULOCYTE ABSOLUTE ADVIA212 7 x10(9)/L (17-77); WHITE BLOOD COUNT 11.9 K/mm3 (4.0-10.0)
[2016-06-04 19:38] LABS: PERCENT SATURATION 18.2 % (13.2-37.4)
[2016-06-04] MEDS: ROSUVASTATIN 10 MG TAB (CRESTOR) PO SCH (22:42)
[2016-06-04] MEDS: MONTELUKAST 10 MG TAB PO SCH (22:42)
[2016-06-04] MEDS: LISINOPRIL 5 MG TAB PO SCH (22:42)
[2016-06-04 23:28] LABS: INR 1.63
[2016-06-05] VITALS (9 sets, daily range): BP systolic 107–145; BP diastolic 53–82
[2016-06-05] MEDS ORDERED: METOPROLOL 5 MG/5 ML VIAL IV STA (00:29)
[2016-06-05] MEDS: LEVALBUTEROL 1.25 MG/0.5 ML CONCENTRATE NEB INH SCH ×4 (01:23→20:00)
[2016-06-05] MEDS: IPRATROPIUM 0.02% SOLN 0.5MG/2.5 ML NEB INH SCH ×4 (01:23→20:00)
[2016-06-05 05:40] LABS: BASO % 0.4 % (0.0-1.0); EOS # 0.2 K/mm3 (0.0-0.50); EOS % 1.8 % (0.0-3.0); LARGE UNSTAINED CELL # 0.1 K/mm3 (0.0-0.4); LARGE UNSTAINED CELL % 0.9 % (0.0-4.0); LYMPH # 0.7 K/mm3 (1.5-4.5); LYMPH % 4.7 % (24.0-44.0); MEAN CORPUSCULAR HGB CONC 30.8 g/dl (32.0-36.5); MEAN CORPUSCULAR VOLUME 90.9 fl (80.0-96.0); MONO # 0.6 K/mm3 (0.0-0.8); MONO % 4.8 % (0.0-5.0); NEUTROPHILS # 10.5 K/mm3 (1.8-7.7); NEUTROPHILS % 87.4 % (36.0-66.0); RED CELL DISTRIBUTION WIDTH 16.8 % (11.5-14.5)
[2016-06-05 05:44] LABS: INR 1.58
[2016-06-05] MEDS: SLF 3 ML SYR IV SCH ×3 (06:00→21:56)
[2016-06-05 06:06] LABS: ALBUMIN 2.6 GM/DL (3.2-5.2); ALBUMIN/GLOBULIN RATIO 0.93 (1.00-1.93); ALKALINE PHOSPHATASE 58 U/L (45-117); ALT/SGPT 26 U/L (12-78); ANION GAP 6 MEQ/L (8-16); AST/SGOT 13 U/L (15-37); BILIRUBIN,TOTAL 0.8 MG/DL (0.2-1.0); BLOOD UREA NITROGEN 21 MG/DL (7-18); CALCIUM LEVEL 7.9 MG/DL (8.8-10.2); CARBON DIOXIDE LEVEL 40 MEQ/L (21-32); CHLORIDE LEVEL 96 MEQ/L (98-107); CREATININE FOR GFR 0.82 MG/DL (0.55-1.02); GLOMERULAR FILTRATION RATE > 60.0 (>39); GLUCOSE, FASTING 87 MG/DL (83-110); MAGNESIUM LEVEL 1.6 MG/DL (1.8-2.4); POTASSIUM SERUM 3.9 MEQ/L (3.5-5.1); SODIUM LEVEL 142 MEQ/L (136-145); TOTAL PROTEIN 5.4 GM/DL (6.4-8.2)
[2016-06-05 06:22] LABS: PLATELET COUNT, AUTOMATED 83 k/mm3 (150-450)
[2016-06-05] MEDS: HumaLOG INSULIN (NovoLOG) PER UNIT SC SCH ×4 (07:04→21:03)
[2016-06-05] MEDS: ADVAIR DISKUS 250/50 INH PWD INH SCH ×2 (07:41→20:22)
[2016-06-05] MEDS: NYSTATIN 500,000 U/5 ML SUSP UDC SS SCH ×3 (08:05→20:58)
[2016-06-05] MEDS: FAMOTIDINE 20 MG TAB PO SCH ×2 (08:05→20:58)
[2016-06-05] MEDS: FUROSEMIDE 40 MG TAB PO SCH (08:05)
[2016-06-05] MEDS: ASPIRIN 81 MG ENTERIC TAB PO SCH (08:05)
[2016-06-05] MEDS: DULoxetine 30 MG CAP (CYMBALTA) PO SCH (08:06)
[2016-06-05] MEDS: NEUTRA-PHOS 1.25 GM PACKET PO SCH ×3 (08:06→18:31)
[2016-06-05] MEDS: MAGNESIUM OXIDE 400 MG TAB (MAG-OX) PO SCH ×2 (09:00→20:58)
--- NOTE | 2016-06-05 10:03 | ECGEPIP ---
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
--- NOTE | 2016-06-05 13:38 | IPNPDOC ---
Text Note Date of Service The patient was seen on 06/05/16 at 13:29. NOTE Subjective: Patient is a 70 year old female with a PMHx of CAD s/p CABG (2010), COPD with Home O2 (NC2L), Chronic atrial fibrillation, CHF, HTN, DM2, DLP, Depression, and Obesity who presented to [facility] from [facility] because of shortness of breath. Patient presented to [place] with SOB and was intubated an required mechanical ventilation. Imaging revealed that there was no PE, but did have infiltrate and was being treated for HCAP pneumonia and COPD exacerbation. Upon arrival at [facility] , she was found to have a right sided pneumothorax. Chest tube was subsequently placed. Patient has been extubated and been tolerating BIPAP, her chest tube had been removed. Nursing has noted that there has been more bleeding from the chest tube and has had hematuria. On 06/04 evening patient was transfused 1 unit PRBC because Hg was trending down. Anticoagulation was stopped. Patient has been seen and examined while in bed. She reports that she hasn't urinated since yesterday - so she is unsure of hematuria. The chest tube site has not had further episodes of bleeding. Objective: Vitals (See below) General: Lying in bed, no acute distress, comfortable, Oriented x3, Drowsy HEENT: NC, AT CVS: RRR, +S1S2 Lungs: Fair air entry b/l, -w/r/r Chest: Right posterior chest wall hematoma Abdomen: Soft, ND, NT, +BSx4 Extremities: -Edema, -calf tenderness Assessment and plan: 1. Acute blood loss anemia - likely 2/2 bleeding from chest tube incision site and hematuria - 2/2 coumadin - Hg trended down over last 24 hours - s/p 1 unit PRBC transfusion - Anticoagulation still on hold - Will follow H&H 2. Hematuria - possibly 2/2 anticoagulation - UA: reveals large amount of blood; will repeat today - Will start irrigation if clotting present - will hold anticoagulation at this point 3. s/p Pneumothorax - s/p Chest tube placement and removal 4. s/p Acute on Chronic hypoxic respiratory failure - likely 2/2 acute COPD exacerbation, and CAP pneumonia - Clinically presented from [place] after being intubated, presented with SOB, cough, wheezing - s/p BIPAP and endotracheal intubation; s/p Azithromycin and Ceftriaxone; s/p Corticosteroids - c/w Ipratropium, Levalbuterol, and Advair 5. Diastolic CHF, EF of 65% - no evidence of exacerbation at this time - c/w home dose of Lasix PO 6. Chronic atrial fibrillation - Had episode of uncontrolled HR; will transition back to Q6H dosing - c/w rate control with Diltiazem - INR still sub-therapeutic - Hold anticoagulation (re: hematuria and bleeding chest tube insertion) 7. Leukocytosis - possibly 2/2 corticosteroids, less likely infectious etiology - reports no symptoms of dysuria - WBC stable; Remains afebrile - UA: + LE, 30-40 WBC; Mod amount bacteria - Will repeat UA - s/p antibiotics for CAP pneumonia - will trend 8. DM2 - c/w ISS 9. DLP - c/w Crestor 10. Depression - c/w Duloxetine 11. CAD s/p CABG (2010) - c/w Aspirin and Rosuvastatin 12. HTN - c/w cardizem and Lisinopril 5mg QHS with holding parameters 13. Obesity 14. GI prophylaxis - c/w protonix 15. DVT prophylaxis - c/w Heparin Disposition: - c/w physical therapy - determine disposition status - Will hold anticoagulation and will recheck H&H VS,Audibone, I+O VS, Fishbone, I+O Laboratory Tests 06/04/16 18:50 Red Blood Count 3.16 L, Mean Corpuscular Volume 89.8, Mean Corpuscular Hemoglobin 27.2, Mean Corpuscular Hemoglobin Concent 30.3 L, Red Cell Distribution Width 15.9 H, Neutrophils (%) (Auto) 87.7 H, Lymphocytes (%) (Auto ) 4.9 L, Monocytes (%) (Auto) 3.8, Eosinophils (%) (Auto) 2.7, Basophils (%) ( Auto) 0.1, Neutrophils # (Auto) 10.4 H, Lymphocytes # (Auto) 0.6 L, Monocytes # (Auto) 0.5, Eosinophils # (Auto) 0.3, Basophils # (Auto) 0.0 06/04/16 23:02 06/05/16 04:44 Red Blood Count 3.35 L, Mean Corpuscular Volume 90.9, Mean Corpuscular Hemoglobin 28.0, Mean Corpuscular Hemoglobin Concent 30.8 L, Red Cell Distribution Width 16.8 H, Neutrophils (%) (Auto) 87.4 H, Lymphocytes (%) (Auto ) 4.7 L, Monocytes (%) (Auto) 4.8, Eosinophils (%) (Auto) 1.8, Basophils (%) ( Auto) 0.4, Neutrophils # (Auto) 10.5 H, Lymphocytes # (Auto) 0.7 L, Monocytes # (Auto) 0.6, Eosinophils # (Auto) 0.2, Basophils # (Auto) 0.0, Calcium Level 7.9 L, Aspartate Amino Transf (AST/SGOT) 13 L, Alanine Aminotransferase (ALT/SGPT) 26, Alkaline Phosphatase 58, Total Bilirubin 0.8, Total Protein 5.4 L, Albumin 2.6 L Vital Signs Date Time Temp Pulse Resp B/P Pulse Ox O2 Delivery O2 Flow Rate FiO2 06/05/16 12:07 108 122/74 06/05/16 12:00 97.1 20 96 Nasal Cannula 2.0 I&O- Last 24 Hours up to 6 AM 06/05/16 06:00 Intake Total 2390 ml Output Total 900 ml Balance 1490 ml DOT MAYER MD Jun 05, 2016 13:38
[2016-06-05 14:09] LABS: BASO % 0.1 % (0.0-1.0); EOS # 0.3 K/mm3 (0.0-0.50); LARGE UNSTAINED CELL # 0.2 K/mm3 (0.0-0.4); LARGE UNSTAINED CELL % 1.1 % (0.0-4.0); LYMPH # 0.7 K/mm3 (1.5-4.5); LYMPH % 5.4 % (24.0-44.0); MEAN CORPUSCULAR HEMOGLOBIN 28.5 pg (27.0-33.0); MEAN CORPUSCULAR HGB CONC 32.3 g/dl (32.0-36.5); MEAN CORPUSCULAR VOLUME 88.3 fl (80.0-96.0); MONO # 0.5 K/mm3 (0.0-0.8); MONO % 3.4 % (0.0-5.0); NEUTROPHILS # 12.1 K/mm3 (1.8-7.7); RED CELL DISTRIBUTION WIDTH 15.5 % (11.5-14.5); WHITE BLOOD COUNT 13.7 K/mm3 (4.0-10.0)
[2016-06-05 14:11] LABS: PLATELET COUNT, AUTOMATED 99 k/mm3 (150-450)
[2016-06-05] MEDS: ROSUVASTATIN 10 MG TAB (CRESTOR) PO SCH (20:58)
[2016-06-05] MEDS: MONTELUKAST 10 MG TAB PO SCH (20:58)
[2016-06-05] MEDS: LISINOPRIL 5 MG TAB PO SCH (21:02)
[2016-06-06] MEDS: LEVALBUTEROL 1.25 MG/0.5 ML CONCENTRATE NEB INH SCH ×4 (02:00→20:00)
[2016-06-06] MEDS: IPRATROPIUM 0.02% SOLN 0.5MG/2.5 ML NEB INH SCH ×4 (02:00→20:00)
[2016-06-06 05:36] LABS: EOS # 0.2 K/mm3 (0.0-0.50); LARGE UNSTAINED CELL # 0.2 K/mm3 (0.0-0.4); LARGE UNSTAINED CELL % 1.7 % (0.0-4.0); LYMPH # 0.6 K/mm3 (1.5-4.5); LYMPH % 5.7 % (24.0-44.0); MEAN CORPUSCULAR HEMOGLOBIN 28.2 pg (27.0-33.0); MEAN CORPUSCULAR HGB CONC 31.7 g/dl (32.0-36.5); MEAN CORPUSCULAR VOLUME 88.9 fl (80.0-96.0); MONO # 0.4 K/mm3 (0.0-0.8); MONO % 3.7 % (0.0-5.0); NEUTROPHILS # 8.8 K/mm3 (1.8-7.7); RED CELL DISTRIBUTION WIDTH 15.5 % (11.5-14.5); WHITE BLOOD COUNT 10.1 K/mm3 (4.0-10.0)
[2016-06-06 05:39] LABS: INR 1.49
[2016-06-06 05:40] VITALS: BP 112/55
[2016-06-06 05:42] LABS: PLATELET COUNT, AUTOMATED 83 k/mm3 (150-450)
[2016-06-06 06:11] LABS: ALBUMIN 2.6 GM/DL (3.2-5.2); ALBUMIN/GLOBULIN RATIO 0.87 (1.00-1.93); ALKALINE PHOSPHATASE 58 U/L (45-117); ALT/SGPT 22 U/L (12-78); ANION GAP 5 MEQ/L (8-16); AST/SGOT 13 U/L (15-37); BLOOD UREA NITROGEN 18 MG/DL (7-18); CALCIUM LEVEL 8.3 MG/DL (8.8-10.2); CARBON DIOXIDE LEVEL 39 MEQ/L (21-32); CHLORIDE LEVEL 96 MEQ/L (98-107); CREATININE FOR GFR 0.78 MG/DL (0.55-1.02); GLOMERULAR FILTRATION RATE > 60.0 (>39); GLUCOSE, FASTING 104 MG/DL (83-110); MAGNESIUM LEVEL 1.9 MG/DL (1.8-2.4); POTASSIUM SERUM 3.8 MEQ/L (3.5-5.1); SODIUM LEVEL 140 MEQ/L (136-145); TOTAL PROTEIN 5.6 GM/DL (6.4-8.2)
[2016-06-06] MEDS: SLF 3 ML SYR IV SCH ×3 (06:18→21:21)
[2016-06-06] MEDS: ADVAIR DISKUS 250/50 INH PWD INH SCH ×2 (07:54→19:47)
[2016-06-06 08:00] VITALS: BP 105/53
[2016-06-06] MEDS: NEUTRA-PHOS 1.25 GM PACKET PO SCH ×3 (08:37→17:21)
[2016-06-06] MEDS: FAMOTIDINE 20 MG TAB PO SCH ×2 (08:38→21:19)
[2016-06-06] MEDS: FUROSEMIDE 40 MG TAB PO SCH (08:38)
[2016-06-06] MEDS: MAGNESIUM OXIDE 400 MG TAB (MAG-OX) PO SCH ×2 (08:38→21:20)
[2016-06-06] MEDS: ASPIRIN 81 MG ENTERIC TAB PO SCH (08:38)
[2016-06-06] MEDS: DULoxetine 30 MG CAP (CYMBALTA) PO SCH (08:38)
[2016-06-06] MEDS: HumaLOG INSULIN (NovoLOG) PER UNIT SC SCH ×4 (08:39→21:20)
[2016-06-06] MEDS: NYSTATIN 500,000 U/5 ML SUSP UDC SS SCH ×3 (08:40→21:20)
[2016-06-06 12:00] VITALS: BP 144/58
--- NOTE | 2016-06-06 12:23 | IPNPDOC ---
Text Note Date of Service The patient was seen on 06/06/16 at 12:14. NOTE Subjective: Patient is a 70 year old female with a PMHx of CAD s/p CABG (2010), COPD with Home O2 (NC2L), Chronic atrial fibrillation, CHF, HTN, DM2, DLP, Depression, and Obesity who presented to [facility] from [facility] because of shortness of breath. Patient presented to [facility] with SOB and was intubated an required mechanical ventilation. Imaging revealed that there was no PE, but did have infiltrate and was being treated for HCAP pneumonia and COPD exacerbation. Upon arrival at [facility] , she was found to have a right sided pneumothorax. Chest tube was subsequently placed. Patient has been extubated and been tolerating BIPAP, her chest tube had been removed. Nursing has noted that there has been more bleeding from the chest tube and has had hematuria. On 06/04 evening patient was transfused 1 unit PRBC because Hg was trending down. Anticoagulation was stopped. Patient has been seen and examined while in bed. She notes that her hematuria has been resolving and that her chest tube incision has no longer been bleeding. She again is very sleepy. Objective: Vitals (See below) General: Lying in bed, no acute distress, comfortable, Oriented x3, Drowsy HEENT: NC, AT CVS: RRR, +S1S2 Lungs: Fair air entry b/l, -w/r/r Chest: Right posterior chest wall hematoma Abdomen: Soft, ND, NT, +BSx4 Extremities: -Edema, -calf tenderness Assessment and plan: 1. Acute blood loss anemia - likely 2/2 bleeding from chest tube incision site and hematuria - 2/2 Coumadin - Hg trended down over last 24 hours - No further bleeding episodes noted; hematuria resolve and CT incision site no longer bleeding - s/p 1 unit PRBC transfusion - Will follow H&H and if stable will restart Anticoagulation with Coumadin 2. Hematuria - possibly 2/2 anticoagulation - UA: reveals large amount of blood; will repeat today - See #1 3. s/p Pneumothorax - s/p Chest tube placement and removal 4. s/p Acute on Chronic hypoxic respiratory failure - likely 2/2 acute COPD exacerbation, and CAP pneumonia - Clinically presented from [facility] [place] [facility] after being intubated, presented with SOB, cough, wheezing - s/p BIPAP and endotracheal intubation; s/p Azithromycin and Ceftriaxone; s/p Corticosteroids - c/w Ipratropium, Levalbuterol, and Advair 5. Diastolic CHF, EF of 65% - no evidence of exacerbation at this time - c/w home dose of Lasix PO 6. Chronic atrial fibrillation - Had episode of uncontrolled HR; will transition back to Q6H dosing - c/w rate control with Diltiazem - INR still sub-therapeutic - Discussed case with Cardiology (Dr. Ramirez); will start Coumadin at 3mg - will avoid full anticoagulation with Lovenox at this time; target INR of 2-3 ( keep on lower end) 7. Leukocytosis - possibly 2/2 corticosteroids, less likely infectious etiology - reports no symptoms of dysuria - WBC has begun to trend down; Remains afebrile - UA does not appear to be infected - s/p antibiotics for CAP pneumonia 8. DM2 - c/w ISS 9. DLP - c/w Crestor 10. Depression - c/w Duloxetine 11. CAD s/p CABG (2010) - c/w Aspirin and Rosuvastatin 12. HTN - c/w cardizem and Lisinopril 5mg QHS with holding parameters 13. Obesity 14. GI prophylaxis - c/w protonix 15. DVT prophylaxis - c/w Heparin Disposition: - c/w physical therapy - determine disposition status - Restart anticoagulation if H&H stable at 12PM - Discussed with Psychiatry (Dr. Jaimes) - will avoid adding additional medication for sleepiness/ depression; may not provide acute changes, recommend outpatient f/u with PCP VS,Jennifer, I+O VS, Jennifer, I+O Laboratory Tests 06/05/16 13:51 Red Blood Count 3.35 L, Mean Corpuscular Volume 88.3, Mean Corpuscular Hemoglobin 28.5, Mean Corpuscular Hemoglobin Concent 32.3, Red Cell Distribution Width 15.5 H, Neutrophils (%) (Auto) 88.0 H, Lymphocytes (%) (Auto ) 5.4 L, Monocytes (%) (Auto) 3.4, Eosinophils (%) (Auto) 2.0, Basophils (%) ( Auto) 0.1, Neutrophils # (Auto) 12.1 H, Lymphocytes # (Auto) 0.7 L, Monocytes # (Auto) 0.5, Eosinophils # (Auto) 0.3, Basophils # (Auto) 0.0 06/06/16 04:50 Red Blood Count 3.12 L, Mean Corpuscular Volume 88.9, Mean Corpuscular Hemoglobin 28.2, Mean Corpuscular Hemoglobin Concent 31.7 L, Red Cell Distribution Width 15.5 H, Neutrophils (%) (Auto) 87.0 H, Lymphocytes (%) (Auto ) 5.7 L, Monocytes (%) (Auto) 3.7, Eosinophils (%) (Auto) 2.0, Basophils (%) ( Auto) 0.0, Neutrophils # (Auto) 8.8 H, Lymphocytes # (Auto) 0.6 L, Monocytes # ( Auto) 0.4, Eosinophils # (Auto) 0.2, Basophils # (Auto) 0.0, Calcium Level 8.3 L , Aspartate Amino Transf (AST/SGOT) 13 L, Alanine Aminotransferase (ALT/SGPT) 22 , Alkaline Phosphatase 58, Total Bilirubin 1.0, Total Protein 5.6 L, Albumin 2.6 L Vital Signs Date Time Temp Pulse Resp B/P Pulse Ox O2 Delivery O2 Flow Rate FiO2 06/06/16 08:00 97.4 98 18 105/53 97 Nasal Cannula 2.0 I&O- Last 24 Hours up to 6 AM 06/06/16 06:00 Intake Total 1200 ml Output Total 1225 ml Balance -25 ml DOT MAYER MD Jun 06, 2016 12:23
[2016-06-06] MEDS: ONDANSETRON 4MG/2ML VIAL (J2405) IV PRN (12:29)
[2016-06-06 12:51] LABS: BASO % 0.1 % (0.0-1.0); EOS # 0.2 K/mm3 (0.0-0.50); EOS % 1.9 % (0.0-3.0); LARGE UNSTAINED CELL # 0.2 K/mm3 (0.0-0.4); LARGE UNSTAINED CELL % 1.7 % (0.0-4.0); LYMPH # 0.6 K/mm3 (1.5-4.5); MEAN CORPUSCULAR HEMOGLOBIN 27.8 pg (27.0-33.0); MEAN CORPUSCULAR HGB CONC 31.5 g/dl (32.0-36.5); MEAN CORPUSCULAR VOLUME 88.3 fl (80.0-96.0); MONO # 0.5 K/mm3 (0.0-0.8); MONO % 5.1 % (0.0-5.0); NEUTROPHILS # 7.9 K/mm3 (1.8-7.7); NEUTROPHILS % 85.3 % (36.0-66.0); RED CELL DISTRIBUTION WIDTH 15.3 % (11.5-14.5); WHITE BLOOD COUNT 9.2 K/mm3 (4.0-10.0)
[2016-06-06 12:56] LABS: PLATELET COUNT, AUTOMATED 82 k/mm3 (150-450)
[2016-06-06 16:00] VITALS: BP 123/57
[2016-06-06] MEDS: WARFARIN SOD 3 MG TAB PO SCH (16:15)
[2016-06-06 20:00] VITALS: BP 112/51
[2016-06-06] MEDS: ROSUVASTATIN 10 MG TAB (CRESTOR) PO SCH (21:19)
[2016-06-06] MEDS: LISINOPRIL 5 MG TAB PO SCH (21:19)
[2016-06-06] MEDS: MONTELUKAST 10 MG TAB PO SCH (21:19)
[2016-06-06 23:59] VITALS: BP 113/53
[2016-06-07] MEDS: IPRATROPIUM 0.02% SOLN 0.5MG/2.5 ML NEB INH SCH ×4 (02:17→20:00)
[2016-06-07] MEDS: LEVALBUTEROL 1.25 MG/0.5 ML CONCENTRATE NEB INH SCH ×4 (02:17→20:00)
[2016-06-07 04:00] VITALS: BP 125/49
[2016-06-07] MEDS: SLF 3 ML SYR IV SCH ×3 (05:54→20:22)
[2016-06-07 06:12] LABS: BASO % 0.1 % (0.0-1.0); EOS # 0.2 K/mm3 (0.0-0.50); EOS % 1.8 % (0.0-3.0); LARGE UNSTAINED CELL # 0.2 K/mm3 (0.0-0.4); LARGE UNSTAINED CELL % 2.1 % (0.0-4.0); LYMPH # 0.6 K/mm3 (1.5-4.5); LYMPH % 6.7 % (24.0-44.0); MEAN CORPUSCULAR HEMOGLOBIN 27.6 pg (27.0-33.0); MEAN CORPUSCULAR HGB CONC 31.3 g/dl (32.0-36.5); MONO # 0.4 K/mm3 (0.0-0.8); MONO % 4.5 % (0.0-5.0); NEUTROPHILS # 7.5 K/mm3 (1.8-7.7); NEUTROPHILS % 84.8 % (36.0-66.0); RED CELL DISTRIBUTION WIDTH 15.6 % (11.5-14.5); WHITE BLOOD COUNT 8.8 K/mm3 (4.0-10.0)
[2016-06-07 06:15] LABS: PLATELET COUNT, AUTOMATED 93 k/mm3 (150-450)
[2016-06-07 06:30] LABS: ALBUMIN 2.5 GM/DL (3.2-5.2); ALBUMIN/GLOBULIN RATIO 0.76 (1.00-1.93); BILIRUBIN,TOTAL 0.8 MG/DL (0.2-1.0); CALCIUM LEVEL 8.3 MG/DL (8.8-10.2); CREATININE FOR GFR 1.03 MG/DL (0.55-1.02); GLOMERULAR FILTRATION RATE 56.4 (>39); POTASSIUM SERUM 4.7 MEQ/L (3.5-5.1); TOTAL PROTEIN 5.8 GM/DL (6.4-8.2)
[2016-06-07] MEDS: ADVAIR DISKUS 250/50 INH PWD INH SCH ×2 (07:05→20:15)
[2016-06-07 08:00] VITALS: BP 110/55
[2016-06-07] MEDS: NYSTATIN 500,000 U/5 ML SUSP UDC SS SCH ×3 (08:34→20:19)
[2016-06-07] MEDS: HumaLOG INSULIN (NovoLOG) PER UNIT SC SCH ×4 (08:35→20:19)
[2016-06-07] MEDS: ASPIRIN 81 MG ENTERIC TAB PO SCH (08:35)
[2016-06-07] MEDS: NEUTRA-PHOS 1.25 GM PACKET PO SCH ×3 (08:35→17:07)
[2016-06-07] MEDS: DULoxetine 30 MG CAP (CYMBALTA) PO SCH (08:36)
[2016-06-07] MEDS: FAMOTIDINE 20 MG TAB PO SCH ×2 (08:36→20:19)
[2016-06-07] MEDS: FUROSEMIDE 40 MG TAB PO SCH (08:36)
[2016-06-07] MEDS: ONDANSETRON 4MG/2ML VIAL (J2405) IV PRN (08:39)
[2016-06-07 12:00] VITALS: BP 125/59
--- NOTE | 2016-06-07 15:41 | IPNPDOC ---
Text Note Date of Service The patient was seen on 06/07/16 at 15:29. NOTE Subjective: Patient states he feels well. Denies any chest pain/shortness of breath/palpitations. Objective: Vitals: (see below) General: No acute distress, laying comfortably in bed. HEENT: Moist mucous membranes. Neck: No JVD or lymphadenopathy Cardiac: RRR, No murmurs Pulm: Clear to auscultation b/l. No wheezing, rhonchi Abd: NT/ND + BS Ext: No edema or cyanosis Labs (see below) Images: Assessment/Plan 1. Acute Blood loss anemia from chest tube incision site as well as hematuria; resolved. Occurred while patient was being bridged to Coumadin. Dr. Soto outspoken to Dr. Ramirez with recommendations to discontinue the bridge, to start patient on a lower dose of Coumadin at 3 mg daily with a target INR closer to 2.0. Patient has not had any further episodes of bleeding. Status post 1 unit PRBC. H&H has been stable. 2. Hematuria- all the patient was on anticoagulation however will need to help patient's urology follow-up for cystoscopy. 3. Status posts hypercapnic respiratory failure with underlying community- acquired pneumonia, as well as pneumothorax; extubated. Status post BiPAP. Status post is a through and Rocephin. Status post steroids. 4. Diastolic heart failure EF of 65%. Appears to be compensated. Home Lasix dose has been held as the patient has metabolic alkalosis at this point. Adequately diuresed. 5. Chronic atrial fibrillation- diltiazem dose increased. INR still subtherapeutic. Continue Coumadin 3 mg, for a goal INR closer to 2.0. 6. Leukocytosis- secondary to steroids. No sores infection. We'll continue to monitor. 7. Diabetes mellitus-continue sliding scale insulin 8. Hyperlipidemia on Crestor 9. Depression- continue home meds 10. History of CAD status post CABG on aspirin and statin 11. Hypertension continue current meds. 12. Obesity 13. GERD continue PPI DVT prophy: On Coumadin Continue physical therapy VS,Fishbone, I+O VS, Fishbone, I+O Laboratory Tests 06/07/16 05:43 Calcium Level 8.3 L, Aspartate Amino Transf (AST/SGOT) 14 L, Alanine Aminotransferase (ALT/SGPT) 21, Alkaline Phosphatase 60, Total Bilirubin 0.8, Total Protein 5.8 L, Albumin 2.5 L, Red Blood Count 3.02 L, Mean Corpuscular Volume 88.0, Mean Corpuscular Hemoglobin 27.6, Mean Corpuscular Hemoglobin Concent 31.3 L, Red Cell Distribution Width 15.6 H, Neutrophils (%) (Auto) 84.8 H, Lymphocytes (%) (Auto) 6.7 L, Monocytes (%) (Auto) 4.5, Eosinophils (%) (Auto ) 1.8, Basophils (%) (Auto) 0.1, Neutrophils # (Auto) 7.5, Lymphocytes # (Auto) 0.6 L, Monocytes # (Auto) 0.4, Eosinophils # (Auto) 0.2, Basophils # (Auto) 0.0 Vital Signs Date Time Temp Pulse Resp B/P Pulse Ox O2 Delivery O2 Flow Rate FiO2 06/07/16 12:00 97.1 109 20 125/59 95 Nasal Cannula 2.0 I&O- Last 24 Hours up to 6 AM 06/07/16 06:00 Intake Total 1000 ml Output Total 1550 ml Balance -550 ml ANSLEY MAYEN MD Jun 07, 2016 15:41
[2016-06-07 16:00] VITALS: BP 111/52
[2016-06-07] MEDS: WARFARIN SOD 3 MG TAB PO SCH (17:07)
[2016-06-07 20:00] VITALS: BP 98/49
[2016-06-07] MEDS: ROSUVASTATIN 10 MG TAB (CRESTOR) PO SCH (20:19)
[2016-06-07] MEDS: MONTELUKAST 10 MG TAB PO SCH (20:19)
[2016-06-07] MEDS: LISINOPRIL 5 MG TAB PO SCH (20:21)
[2016-06-07 23:50] VITALS: BP 90/55
[2016-06-08] VITALS (7 sets, daily range): BP systolic 109–173; BP diastolic 51–74
[2016-06-08] MEDS: IPRATROPIUM 0.02% SOLN 0.5MG/2.5 ML NEB INH SCH ×4 (01:36→19:41)
[2016-06-08] MEDS: LEVALBUTEROL 1.25 MG/0.5 ML CONCENTRATE NEB INH SCH ×4 (01:36→19:41)
[2016-06-08] MEDS: SLF 3 ML SYR IV SCH ×3 (05:50→21:17)
[2016-06-08 06:03] LABS: EOS # 0.2 K/mm3 (0.0-0.50); EOS % 2.3 % (0.0-3.0); LARGE UNSTAINED CELL # 0.2 K/mm3 (0.0-0.4); LARGE UNSTAINED CELL % 2.4 % (0.0-4.0); LYMPH # 0.6 K/mm3 (1.5-4.5); LYMPH % 7.3 % (24.0-44.0); MEAN CORPUSCULAR HEMOGLOBIN 28.3 pg (27.0-33.0); MEAN CORPUSCULAR HGB CONC 32.5 g/dl (32.0-36.5); MEAN CORPUSCULAR VOLUME 87.1 fl (80.0-96.0); MONO # 0.4 K/mm3 (0.0-0.8); MONO % 4.7 % (0.0-5.0); NEUTROPHILS # 6.6 K/mm3 (1.8-7.7); NEUTROPHILS % 83.2 % (36.0-66.0); PLATELET COUNT, AUTOMATED 106 k/mm3 (150-450); RED CELL DISTRIBUTION WIDTH 16.1 % (11.5-14.5)
[2016-06-08 06:27] LABS: ALBUMIN 2.5 GM/DL (3.2-5.2); ALBUMIN/GLOBULIN RATIO 0.78 (1.00-1.93); BILIRUBIN,TOTAL 0.7 MG/DL (0.2-1.0); CALCIUM LEVEL 8.4 MG/DL (8.8-10.2); CREATININE FOR GFR 1.06 MG/DL (0.55-1.02); GLOMERULAR FILTRATION RATE 54.6 (>39); MAGNESIUM LEVEL 1.8 MG/DL (1.8-2.4); POTASSIUM SERUM 4.2 MEQ/L (3.5-5.1); TOTAL PROTEIN 5.7 GM/DL (6.4-8.2)
[2016-06-08] MEDS: ADVAIR DISKUS 250/50 INH PWD INH SCH ×2 (07:52→21:58)
[2016-06-08] MEDS: NEUTRA-PHOS 1.25 GM PACKET PO SCH ×3 (08:49→16:58)
[2016-06-08] MEDS: DULoxetine 30 MG CAP (CYMBALTA) PO SCH (08:50)
[2016-06-08] MEDS: HumaLOG INSULIN (NovoLOG) PER UNIT SC SCH ×4 (08:50→21:00)
[2016-06-08] MEDS: NYSTATIN 500,000 U/5 ML SUSP UDC SS SCH ×3 (08:50→21:17)
[2016-06-08] MEDS: FAMOTIDINE 20 MG TAB PO SCH ×2 (08:50→21:17)
[2016-06-08] MEDS: ASPIRIN 81 MG ENTERIC TAB PO SCH (08:50)
[2016-06-08] MEDS: NS 1,000 ML IV SCH (09:58)
--- NOTE | 2016-06-08 14:30 | IPNPDOC ---
Text Note Date of Service The patient was seen on 06/08/16 at 14:28. NOTE Subjective: Patient denies any complaints. Denies any chest pain/shortness of breath/palpitations. No bleeding at the chest tube insertion site. Objective: Vitals: (see below) General: No acute distress, laying comfortably in bed. HEENT: Moist mucous membranes. Neck: No JVD or lymphadenopathy Cardiac: RRR, No murmurs Pulm: Clear to auscultation b/l. No wheezing, rhonchi. Chest tube insertion site with bandage clean, dry. No bleeding noted. Abd: NT/ND + BS Ext: No edema or cyanosis Labs (see below) Images: Assessment/Plan 1. Acute Blood loss anemia from chest tube incision site as well as hematuria; resolved. Occurred while patient was being bridged to Coumadin. Dr. Soto outspoken to Dr. Ramirez with recommendations to discontinue the bridge, to start patient on a lower dose of Coumadin at 3 mg daily with a target INR closer to 2.0. Patient has not had any further episodes of bleeding. Status post 1 unit PRBC. H&H has been stable. 2. Hematuria- all the patient was on anticoagulation however will need to help patient's urology follow-up for cystoscopy. 3. Status posts hypercapnic respiratory failure with underlying community- acquired pneumonia, as well as pneumothorax; extubated. Status post BiPAP. Status post is a through and Rocephin. Status post steroids. 4. Diastolic heart failure EF of 65%. Appears to be compensated. Home Lasix dose has been held as the patient has metabolic alkalosis at this point. Adequately diuresed. 5. Chronic atrial fibrillation- diltiazem dose increased. INR still subtherapeutic. Continue Coumadin 3 mg, for a goal INR closer to 2.0. 6. Leukocytosis- secondary to steroids. No sores infection. We'll continue to monitor. 7. Diabetes mellitus-continue sliding scale insulin 8. Hyperlipidemia on Crestor 9. Depression- continue home meds 10. History of CAD status post CABG on aspirin and statin 11. Hypertension continue current meds. 12. Obesity 13. GERD continue PPI DVT prophy: On Coumadin Continue physical therapy Plan to be discharged when patient's INR is therapeutic. VS,Fishbone, I+O VS, Fishbone, I+O Laboratory Tests 06/08/16 05:29 Calcium Level 8.4 L, Aspartate Amino Transf (AST/SGOT) 12 L, Alanine Aminotransferase (ALT/SGPT) 17, Alkaline Phosphatase 67, Total Bilirubin 0.7, Total Protein 5.7 L, Albumin 2.5 L, Red Blood Count 2.83 L, Mean Corpuscular Volume 87.1, Mean Corpuscular Hemoglobin 28.3, Mean Corpuscular Hemoglobin Concent 32.5, Red Cell Distribution Width 16.1 H, Neutrophils (%) (Auto) 83.2 H , Lymphocytes (%) (Auto) 7.3 L, Monocytes (%) (Auto) 4.7, Eosinophils (%) (Auto ) 2.3, Basophils (%) (Auto) 0.0, Neutrophils # (Auto) 6.6, Lymphocytes # (Auto) 0.6 L, Monocytes # (Auto) 0.4, Eosinophils # (Auto) 0.2, Basophils # (Auto) 0.0 Vital Signs Date Time Temp Pulse Resp B/P Pulse Ox O2 Delivery O2 Flow Rate FiO2 06/08/16 12:58 91 130/56 06/08/16 12:00 96.9 20 99 Nasal Cannula 2.0 I&O- Last 24 Hours up to 6 AM 06/08/16 06:00 Intake Total 2250 ml Output Total 1100 ml Balance 1150 ml ANSLEY MAYEN MD Jun 08, 2016 14:30
[2016-06-08] MEDS: WARFARIN SOD 3 MG TAB PO SCH (16:58)
[2016-06-08] MEDS: MONTELUKAST 10 MG TAB PO SCH (21:17)
[2016-06-08] MEDS: ROSUVASTATIN 10 MG TAB (CRESTOR) PO SCH (21:17)
[2016-06-08] MEDS: LISINOPRIL 5 MG TAB PO SCH (21:17)
[2016-06-09] MEDS: NS 1,000 ML IV SCH (00:23)
[2016-06-09] MEDS: IPRATROPIUM 0.02% SOLN 0.5MG/2.5 ML NEB INH SCH ×4 (01:26→20:00)
[2016-06-09] MEDS: LEVALBUTEROL 1.25 MG/0.5 ML CONCENTRATE NEB INH SCH ×4 (01:27→20:00)
[2016-06-09 05:14] VITALS: BP 131/60
[2016-06-09] MEDS: SLF 3 ML SYR IV SCH ×3 (05:19→21:44)
[2016-06-09 08:00] VITALS: BP 119/53
[2016-06-09] MEDS: ADVAIR DISKUS 250/50 INH PWD INH SCH ×2 (08:09→20:13)
[2016-06-09] MEDS: NEUTRA-PHOS 1.25 GM PACKET PO SCH ×3 (08:11→17:44)
[2016-06-09] MEDS: HumaLOG INSULIN (NovoLOG) PER UNIT SC SCH ×4 (08:11→21:00)
[2016-06-09] MEDS: NYSTATIN 500,000 U/5 ML SUSP UDC SS SCH ×3 (08:11→21:43)
[2016-06-09] MEDS: ASPIRIN 81 MG ENTERIC TAB PO SCH (08:12)
[2016-06-09] MEDS: DULoxetine 30 MG CAP (CYMBALTA) PO SCH (08:12)
[2016-06-09] MEDS: FAMOTIDINE 20 MG TAB PO SCH ×2 (08:12→21:43)
[2016-06-09 09:15] LABS: BASO % 0.1 % (0.0-1.0); EOS # 0.1 K/mm3 (0.0-0.50); EOS % 1.9 % (0.0-3.0); LARGE UNSTAINED CELL # 0.1 K/mm3 (0.0-0.4); LARGE UNSTAINED CELL % 1.8 % (0.0-4.0); LYMPH # 0.6 K/mm3 (1.5-4.5); LYMPH % 7.4 % (24.0-44.0); MEAN CORPUSCULAR HEMOGLOBIN 28.6 pg (27.0-33.0); MEAN CORPUSCULAR VOLUME 89.5 fl (80.0-96.0); MONO # 0.4 K/mm3 (0.0-0.8); MONO % 4.7 % (0.0-5.0); NEUTROPHILS # 6.4 K/mm3 (1.8-7.7); NEUTROPHILS % 84.1 % (36.0-66.0); PLATELET COUNT, AUTOMATED 117 k/mm3 (150-450); RED CELL DISTRIBUTION WIDTH 16.4 % (11.5-14.5); WHITE BLOOD COUNT 7.6 K/mm3 (4.0-10.0)
[2016-06-09 09:23] LABS: INR 1.6
[2016-06-09 09:50] LABS: ANION GAP 5 MEQ/L (8-16); BLOOD UREA NITROGEN 13 MG/DL (7-18); CALCIUM LEVEL 8.3 MG/DL (8.8-10.2); CARBON DIOXIDE LEVEL 38 MEQ/L (21-32); CHLORIDE LEVEL 101 MEQ/L (98-107); CREATININE FOR GFR 0.94 MG/DL (0.55-1.02); GLOMERULAR FILTRATION RATE > 60.0 (>39); GLUCOSE, FASTING 136 MG/DL (83-110); POTASSIUM SERUM 4.1 MEQ/L (3.5-5.1); SODIUM LEVEL 144 MEQ/L (136-145)
[2016-06-09 12:00] VITALS: BP 130/60
--- NOTE | 2016-06-09 14:06 | IPNPDOC ---
Text Note Date of Service The patient was seen on 06/09/16 at 14:05. NOTE Subjective: Patient denies any complaints. Denies any chest pain/shortness of breath/palpitations. No bleeding at the chest tube insertion site. Objective: Vitals: (see below) General: No acute distress, laying comfortably in bed. HEENT: Moist mucous membranes. Neck: No JVD or lymphadenopathy Cardiac: RRR, No murmurs Pulm: Clear to auscultation b/l. No wheezing, rhonchi. Chest tube insertion site with bandage clean, dry. No bleeding noted. Abd: NT/ND + BS Ext: No edema or cyanosis Labs (see below) Images: Assessment/Plan 1. Acute Blood loss anemia from chest tube incision site as well as hematuria; resolved. Occurred while patient was being bridged to Coumadin.Target INR closer to 2.0. Patient has not had any further episodes of bleeding. Status post 1 unit PRBC. H&H has been stable. As INR still subtherapeutic, will increase the dose of Coumadin to 5 mg daily. 2. Hematuria- all the patient was on anticoagulation however will need to help patient's urology follow-up for cystoscopy. 3. Status posts hypercapnic respiratory failure with underlying community- acquired pneumonia, as well as pneumothorax; extubated. Status post BiPAP. Status post is a through and Rocephin. Status post steroids. 4. Diastolic heart failure EF of 65%. Appears to be compensated. Home Lasix dose has been held as the patient has metabolic alkalosis at this point. Adequately diuresed. 5. Chronic atrial fibrillation- diltiazem dose increased. INR still subtherapeutic. Continue Coumadin 3 mg, for a goal INR closer to 2.0. 6. Leukocytosis- secondary to steroids. No sores infection. We'll continue to monitor. 7. Diabetes mellitus-continue sliding scale insulin 8. Hyperlipidemia on Crestor 9. Depression- continue home meds 10. History of CAD status post CABG on aspirin and statin 11. Hypertension continue current meds. 12. Obesity 13. GERD continue PPI DVT prophy: On Coumadin Continue physical therapy Will likely need rehabilitation placement. Plan to be discharged when patient's INR is therapeutic. VS,Fishbone, I+O VS, Fishbone, I+O Laboratory Tests 06/09/16 08:57 Calcium Level 8.3 L, Red Blood Count 2.60 L, Mean Corpuscular Volume 89.5, Mean Corpuscular Hemoglobin 28.6, Mean Corpuscular Hemoglobin Concent 32.0, Red Cell Distribution Width 16.4 H, Neutrophils (%) (Auto) 84.1 H, Lymphocytes (%) (Auto ) 7.4 L, Monocytes (%) (Auto) 4.7, Eosinophils (%) (Auto) 1.9, Basophils (%) ( Auto) 0.1, Neutrophils # (Auto) 6.4, Lymphocytes # (Auto) 0.6 L, Monocytes # ( Auto) 0.4, Eosinophils # (Auto) 0.1, Basophils # (Auto) 0.0 Vital Signs Date Time Temp Pulse Resp B/P Pulse Ox O2 Delivery O2 Flow Rate FiO2 06/09/16 12:48 98 130/60 06/09/16 12:00 96.6 22 93 Nasal Cannula 2.0 I&O- Last 24 Hours up to 6 AM 06/09/16 06:00 Intake Total 2600 ml Output Total 1250 ml Balance 1350 ml ANSLEY MAYEN MD Jun 09, 2016 14:06
[2016-06-09] MEDS ORDERED: MAG SULF 1GM/100ML (MAG RUN) 1 GM in APPROPRIATE DILUENT 1 EA IV ONE (14:15)
[2016-06-09] MEDS: WARFARIN SOD 5 MG TAB PO SCH (17:45)
[2016-06-09 19:20] VITALS: BP 128/56
[2016-06-09] MEDS: LISINOPRIL 5 MG TAB PO SCH (21:43)
[2016-06-09] MEDS: MONTELUKAST 10 MG TAB PO SCH (21:43)
[2016-06-09] MEDS: ROSUVASTATIN 10 MG TAB (CRESTOR) PO SCH (21:43)
[2016-06-09 23:45] VITALS: BP 150/63
[2016-06-10 00:18] VITALS: BP 123/56
[2016-06-10] MEDS: IPRATROPIUM 0.02% SOLN 0.5MG/2.5 ML NEB INH SCH ×4 (02:00→20:22)
[2016-06-10] MEDS: LEVALBUTEROL 1.25 MG/0.5 ML CONCENTRATE NEB INH SCH ×4 (02:00→20:22)
--- NOTE | 2016-06-10 02:10 | REPUSA ---
CLINICAL HISTORY: Trauma. TECHNIQUE: Multiple axial CT images were obtained through the brain without IV contrast material. COMMENTS: There is normal configuration of sella turcica. There are no intra or extra-axial collections. There is no mass effect or midline shift. There is no evidence of hematoma formation. No hydrocephalus is p resent. The ventricles are symmetrical. No abnormal calcifications are present. There is diffuse age-appropriate cerebellar and cerebral atrophy with proportionally dilated ventricl es and cortical sulci. There are bilateral periventricular and subcortical white matter hypolucencies compatible with mild c hronic microvascular disease. Otherwise, no significant focal abnormalities are seen either in the posterior fossa or supratentoria l compartment. Secretions in the right sphenoid and left maxillary sinuses. Chronic ethmoid thickening. IMPRESSION: 1. Age-appropriate cerebellar and cerebral atrophy. 2. Mild chronic microvascular disease. 3. No evidence of acute intracranial pathology. 4. Sinusitis. Thank you for your kind referral of this patient.
[2016-06-10 04:57] VITALS: BP 126/58
[2016-06-10 05:49] LABS: BASO % 0.2 % (0.0-1.0); EOS # 0.2 K/mm3 (0.0-0.50); EOS % 2.4 % (0.0-3.0); LARGE UNSTAINED CELL # 0.2 K/mm3 (0.0-0.4); LARGE UNSTAINED CELL % 2.8 % (0.0-4.0); LYMPH # 0.6 K/mm3 (1.5-4.5); LYMPH % 7.8 % (24.0-44.0); MEAN CORPUSCULAR HEMOGLOBIN 26.9 pg (27.0-33.0); MEAN CORPUSCULAR HGB CONC 29.3 g/dl (32.0-36.5); MEAN CORPUSCULAR VOLUME 91.8 fl (80.0-96.0); MONO # 0.4 K/mm3 (0.0-0.8); MONO % 4.8 % (0.0-5.0); NEUTROPHILS # 6.6 K/mm3 (1.8-7.7); NEUTROPHILS % 82.1 % (36.0-66.0); PLATELET COUNT, AUTOMATED 149 k/mm3 (150-450); RED CELL DISTRIBUTION WIDTH 16.9 % (11.5-14.5); WHITE BLOOD COUNT 8.1 K/mm3 (4.0-10.0)
[2016-06-10 06:03] LABS: ANION GAP 4 MEQ/L (8-16); BLOOD UREA NITROGEN 14 MG/DL (7-18); CALCIUM LEVEL 8.6 MG/DL (8.8-10.2); CARBON DIOXIDE LEVEL 38 MEQ/L (21-32); CHLORIDE LEVEL 103 MEQ/L (98-107); CREATININE FOR GFR 0.79 MG/DL (0.55-1.02); GLOMERULAR FILTRATION RATE > 60.0 (>39); GLUCOSE, FASTING 104 MG/DL (83-110); MAGNESIUM LEVEL 2.1 MG/DL (1.8-2.4); POTASSIUM SERUM 4.4 MEQ/L (3.5-5.1); SODIUM LEVEL 145 MEQ/L (136-145)
[2016-06-10] MEDS: SLF 3 ML SYR IV SCH ×3 (06:27→20:46)
[2016-06-10] MEDS: HumaLOG INSULIN (NovoLOG) PER UNIT SC SCH ×4 (06:42→20:45)
[2016-06-10 07:15] VITALS: BP 122/58
[2016-06-10] MEDS: ADVAIR DISKUS 250/50 INH PWD INH SCH ×2 (07:24→20:36)
[2016-06-10] MEDS: ASPIRIN 81 MG ENTERIC TAB PO SCH (08:14)
[2016-06-10] MEDS: NEUTRA-PHOS 1.25 GM PACKET PO SCH ×3 (08:14→17:02)
[2016-06-10] MEDS: NYSTATIN 500,000 U/5 ML SUSP UDC SS SCH ×3 (08:14→20:44)
[2016-06-10] MEDS: FAMOTIDINE 20 MG TAB PO SCH ×2 (08:14→20:44)
[2016-06-10] MEDS: DULoxetine 30 MG CAP (CYMBALTA) PO SCH (08:14)
[2016-06-10] MEDS: DOCUSATE SODIUM 100 MG CAP PO SCH ×2 (08:59→20:45)
[2016-06-10] MEDS: MIRALAX *UNIT DOSE* 17GM PACKET PO SCH ×2 (09:00→20:49)
[2016-06-10] MEDS: SENNA 8.6 MG TAB (SENOKOT) PO SCH (09:05)
[2016-06-10 09:39] LABS: INR 1.65
[2016-06-10 16:00] VITALS: BP 125/58
[2016-06-10] MEDS: WARFARIN SOD 5 MG TAB PO SCH (17:02)
--- NOTE | 2016-06-10 17:38 | IPNPDOC ---
Text Note Date of Service The patient was seen on 06/10/16 at 17:36. NOTE Subjective: Patient denies any complaints. Feels well. Objective: Vitals: (see below) General: No acute distress, laying comfortably in bed. HEENT: Moist mucous membranes. Neck: No JVD or lymphadenopathy Cardiac: RRR, No murmurs Pulm: Clear to auscultation b/l. No wheezing, rhonchi. Chest tube insertion site with bandage clean, dry. No bleeding noted. Abd: NT/ND + BS Ext: No edema or cyanosis Labs (see below) Images: Assessment/Plan 1. Acute Blood loss anemia from chest tube incision site as well as hematuria; resolved. Occurred while patient was being bridged to Coumadin.Target INR closer to 2.0. Patient has not had any further episodes of bleeding. Status post 2 unit PRBC (second unit 06/10). H&H has been stable. As INR still subtherapeutic, Dose was increased to 5 mg daily. 2. Hematuria- resolved. Patient was on anticoagulation however will need to help patient's urology follow-up for cystoscopy. 3. Status posts hypercapnic respiratory failure with underlying community- acquired pneumonia, as well as pneumothorax; extubated. Status post BiPAP. Status post is a through and Rocephin. Status post steroids. 4. Diastolic heart failure EF of 65%. Appears to be compensated. Home Lasix dose has been held as the patient has metabolic alkalosis at this point. Adequately diuresed. 5. Chronic atrial fibrillation- diltiazem dose increased. INR still subtherapeutic. Continue Coumadin 3 mg, for a goal INR closer to 2.0. 6. Leukocytosis- secondary to steroids. No sores infection. We'll continue to monitor. 7. Diabetes mellitus-continue sliding scale insulin 8. Hyperlipidemia on Crestor 9. Depression- continue home meds 10. History of CAD status post CABG on aspirin and statin 11. Hypertension continue current meds. 12. Obesity 13. GERD continue PPI DVT prophy: On Coumadin Continue physical therapy Will likely need rehabilitation placement. Plan to be discharged when patient's INR is therapeutic. VS,Fishbone, I+O VS, Fishbone, I+O Laboratory Tests 06/10/16 04:58 Calcium Level 8.6 L, Red Blood Count 2.78 L, Mean Corpuscular Volume 91.8, Mean Corpuscular Hemoglobin 26.9 L, Mean Corpuscular Hemoglobin Concent 29.3 L, Red Cell Distribution Width 16.9 H, Neutrophils (%) (Auto) 82.1 H, Lymphocytes (%) ( Auto) 7.8 L, Monocytes (%) (Auto) 4.8, Eosinophils (%) (Auto) 2.4, Basophils (% ) (Auto) 0.2, Neutrophils # (Auto) 6.6, Lymphocytes # (Auto) 0.6 L, Monocytes # (Auto) 0.4, Eosinophils # (Auto) 0.2, Basophils # (Auto) 0.0 Vital Signs Date Time Temp Pulse Resp B/P Pulse Ox O2 Delivery O2 Flow Rate FiO2 06/10/16 17:03 88 125/58 06/10/16 16:00 96.7 20 96 Nasal Cannula 2.0 I&O- Last 24 Hours up to 6 AM 06/10/16 06:00 Intake Total 2235 ml Output Total 1900 ml Balance 335 ml ANSLEY MAYEN MD Jun 10, 2016 17:38
[2016-06-10 20:00] VITALS: BP 131/73
[2016-06-10] MEDS: MONTELUKAST 10 MG TAB PO SCH (20:44)
[2016-06-10] MEDS: ROSUVASTATIN 10 MG TAB (CRESTOR) PO SCH (20:44)
[2016-06-10] MEDS: LISINOPRIL 5 MG TAB PO SCH (20:45)
[2016-06-11] MEDS: LEVALBUTEROL 1.25 MG/0.5 ML CONCENTRATE NEB INH SCH ×5 (02:00→20:38)
[2016-06-11] MEDS: IPRATROPIUM 0.02% SOLN 0.5MG/2.5 ML NEB INH SCH ×5 (02:00→20:38)
[2016-06-11 06:00] VITALS: BP 157/71
[2016-06-11 06:21] LABS: BASO # 0.1 K/mm3 (0.0-0.2); BASO % 0.7 % (0.0-1.0); EOS # 0.2 K/mm3 (0.0-0.50); EOS % 2.7 % (0.0-3.0); LARGE UNSTAINED CELL # 0.2 K/mm3 (0.0-0.4); LARGE UNSTAINED CELL % 2.2 % (0.0-4.0); LYMPH # 0.8 K/mm3 (1.5-4.5); LYMPH % 8.2 % (24.0-44.0); MEAN CORPUSCULAR HEMOGLOBIN 27.7 pg (27.0-33.0); MEAN CORPUSCULAR HGB CONC 31.5 g/dl (32.0-36.5); MEAN CORPUSCULAR VOLUME 87.8 fl (80.0-96.0); MONO # 0.4 K/mm3 (0.0-0.8); NEUTROPHILS # 6.3 K/mm3 (1.8-7.7); NEUTROPHILS % 81.1 % (36.0-66.0); PLATELET COUNT, AUTOMATED 168 k/mm3 (150-450); WHITE BLOOD COUNT 7.8 K/mm3 (4.0-10.0)
[2016-06-11] MEDS: SLF 3 ML SYR IV SCH ×3 (06:24→20:52)
[2016-06-11 06:31] LABS: INR 1.81
[2016-06-11 06:48] LABS: ANION GAP 7 MEQ/L (8-16); BLOOD UREA NITROGEN 11 MG/DL (7-18); CALCIUM LEVEL 8.3 MG/DL (8.8-10.2); CARBON DIOXIDE LEVEL 34 MEQ/L (21-32); CHLORIDE LEVEL 103 MEQ/L (98-107); CREATININE FOR GFR 0.69 MG/DL (0.55-1.02); GLOMERULAR FILTRATION RATE > 60.0 (>39); GLUCOSE, FASTING 136 MG/DL (83-110); MAGNESIUM LEVEL 1.9 MG/DL (1.8-2.4); POTASSIUM SERUM 4.2 MEQ/L (3.5-5.1); SODIUM LEVEL 144 MEQ/L (136-145)
[2016-06-11] MEDS: NEUTRA-PHOS 1.25 GM PACKET PO SCH ×3 (10:09→18:41)
[2016-06-11] MEDS: HumaLOG INSULIN (NovoLOG) PER UNIT SC SCH ×4 (10:09→20:56)
[2016-06-11] MEDS: MIRALAX *UNIT DOSE* 17GM PACKET PO SCH ×2 (10:09→20:47)
[2016-06-11] MEDS: NYSTATIN 500,000 U/5 ML SUSP UDC SS SCH ×3 (10:09→20:55)
[2016-06-11] MEDS: FAMOTIDINE 20 MG TAB PO SCH ×2 (10:10→20:47)
[2016-06-11] MEDS: DOCUSATE SODIUM 100 MG CAP PO SCH ×2 (10:10→20:47)
[2016-06-11] MEDS: DULoxetine 30 MG CAP (CYMBALTA) PO SCH (10:10)
[2016-06-11] MEDS: ASPIRIN 81 MG ENTERIC TAB PO SCH (10:10)
[2016-06-11] MEDS: SENNA 8.6 MG TAB (SENOKOT) PO SCH (10:10)
[2016-06-11 14:00] VITALS: BP 153/70
[2016-06-11] MEDS: ADVAIR DISKUS 250/50 INH PWD INH SCH ×2 (14:00→19:47)
--- NOTE | 2016-06-11 14:45 | IPNPDOC ---
Text Note Date of Service The patient was seen on 06/11/16 at 14:44. NOTE Subjective: Patient denies any complaints. Feels well. States she's been walking around. Objective: Vitals: (see below) General: No acute distress, laying comfortably in bed. HEENT: Moist mucous membranes. Neck: No JVD or lymphadenopathy Cardiac: RRR, No murmurs Pulm: Clear to auscultation b/l. No wheezing, rhonchi. Chest tube insertion site with bandage clean, dry. No bleeding noted. Abd: NT/ND + BS Ext: No edema or cyanosis Labs (see below) Images: Assessment/Plan 1. Acute Blood loss anemia from chest tube incision site as well as hematuria; resolved. Occurred while patient was being bridged to Coumadin.Target INR closer to 2.0. Patient has not had any further episodes of bleeding. Status post 2 unit PRBC (second unit 06/10). H&H has been stable. As INR still subtherapeutic, Dose was increased to 5 mg daily. 2. Hematuria- resolved. Patient was on anticoagulation however will need to help patient's urology follow-up for cystoscopy. 3. Status posts hypercapnic respiratory failure with underlying community- acquired pneumonia, as well as pneumothorax; extubated. Status post BiPAP. Status post is a through and Rocephin. Status post steroids. 4. Diastolic heart failure EF of 65%. Appears to be compensated. Home Lasix dose has been held as the patient has metabolic alkalosis at this point. Adequately diuresed. 5. Chronic atrial fibrillation- diltiazem dose increased. INR still subtherapeutic. Continue Coumadin 3 mg, for a goal INR closer to 2.0. 6. Leukocytosis- secondary to steroids. No sores infection. We'll continue to monitor. 7. Diabetes mellitus-continue sliding scale insulin 8. Hyperlipidemia on Crestor 9. Depression- continue home meds 10. History of CAD status post CABG on aspirin and statin 11. Hypertension continue current meds. 12. Obesity 13. GERD continue PPI DVT prophy: On Coumadin Continue physical therapy Will likely need rehabilitation placement. Plan to be discharged when patient's INR is therapeutic. INR is 1.8 today. VS,Fishbone, I+O VS, Fishbone, I+O Laboratory Tests 06/11/16 05:55 Calcium Level 8.3 L, Red Blood Count 3.18 L, Mean Corpuscular Volume 87.8, Mean Corpuscular Hemoglobin 27.7, Mean Corpuscular Hemoglobin Concent 31.5 L, Red Cell Distribution Width 18.0 H, Neutrophils (%) (Auto) 81.1 H, Lymphocytes (%) ( Auto) 8.2 L, Monocytes (%) (Auto) 5.0, Eosinophils (%) (Auto) 2.7, Basophils (% ) (Auto) 0.7, Neutrophils # (Auto) 6.3, Lymphocytes # (Auto) 0.8 L, Monocytes # (Auto) 0.4, Eosinophils # (Auto) 0.2, Basophils # (Auto) 0.1 Vital Signs Date Time Temp Pulse Resp B/P Pulse Ox O2 Delivery O2 Flow Rate FiO2 06/11/16 14:00 97.5 93 18 153/70 100 Nasal Cannula 2.0 I&O- Last 24 Hours up to 6 AM 06/11/16 06:00 Intake Total 1700 ml Output Total 450 ml Balance 1250 ml ANSLEY MAYEN MD Jun 11, 2016 14:45
[2016-06-11] MEDS: WARFARIN SOD 5 MG TAB PO SCH (18:42)
[2016-06-11] MEDS: ROSUVASTATIN 10 MG TAB (CRESTOR) PO SCH (20:47)
[2016-06-11] MEDS: MONTELUKAST 10 MG TAB PO SCH (20:47)
[2016-06-11] MEDS: LISINOPRIL 5 MG TAB PO SCH (20:56)
[2016-06-11 22:00] VITALS: BP 152/69
[2016-06-12] MEDS: SLF 3 ML SYR IV SCH ×4 (00:23→20:59)
[2016-06-12 06:00] VITALS: BP 143/63
[2016-06-12 06:08] LABS: BASO % 0.5 % (0.0-1.0); EOS # 0.3 K/mm3 (0.0-0.50); EOS % 3.5 % (0.0-3.0); LARGE UNSTAINED CELL # 0.2 K/mm3 (0.0-0.4); LARGE UNSTAINED CELL % 2.5 % (0.0-4.0); LYMPH # 0.9 K/mm3 (1.5-4.5); LYMPH % 9.4 % (24.0-44.0); MEAN CORPUSCULAR HGB CONC 31.7 g/dl (32.0-36.5); MEAN CORPUSCULAR VOLUME 88.3 fl (80.0-96.0); MONO # 0.4 K/mm3 (0.0-0.8); MONO % 5.5 % (0.0-5.0); NEUTROPHILS # 5.9 K/mm3 (1.8-7.7); NEUTROPHILS % 78.6 % (36.0-66.0); PLATELET COUNT, AUTOMATED 203 k/mm3 (150-450); RED CELL DISTRIBUTION WIDTH 18.4 % (11.5-14.5); WHITE BLOOD COUNT 7.5 K/mm3 (4.0-10.0)
[2016-06-12 06:17] LABS: INR 2.12
[2016-06-12 06:22] LABS: ANION GAP 3 MEQ/L (8-16); BLOOD UREA NITROGEN 11 MG/DL (7-18); CALCIUM LEVEL 8.8 MG/DL (8.8-10.2); CARBON DIOXIDE LEVEL 38 MEQ/L (21-32); CHLORIDE LEVEL 102 MEQ/L (98-107); CREATININE FOR GFR 0.85 MG/DL (0.55-1.02); GLOMERULAR FILTRATION RATE > 60.0 (>39); GLUCOSE, FASTING 116 MG/DL (83-110); POTASSIUM SERUM 4.1 MEQ/L (3.5-5.1); SODIUM LEVEL 143 MEQ/L (136-145)
[2016-06-12] MEDS: IPRATROPIUM 0.02% SOLN 0.5MG/2.5 ML NEB INH SCH ×3 (07:22→20:00)
[2016-06-12] MEDS: LEVALBUTEROL 1.25 MG/0.5 ML CONCENTRATE NEB INH SCH ×3 (07:22→20:00)
[2016-06-12] MEDS: ADVAIR DISKUS 250/50 INH PWD INH SCH ×2 (07:22→21:06)
[2016-06-12] MEDS: HumaLOG INSULIN (NovoLOG) PER UNIT SC SCH ×4 (08:59→20:36)
[2016-06-12] MEDS: DOCUSATE SODIUM 100 MG CAP PO SCH ×2 (08:59→20:35)
[2016-06-12] MEDS: FAMOTIDINE 20 MG TAB PO SCH ×2 (08:59→20:35)
[2016-06-12] MEDS: ASPIRIN 81 MG ENTERIC TAB PO SCH (08:59)
[2016-06-12] MEDS: MIRALAX *UNIT DOSE* 17GM PACKET PO SCH ×2 (08:59→20:35)
[2016-06-12] MEDS: NEUTRA-PHOS 1.25 GM PACKET PO SCH ×3 (08:59→18:22)
[2016-06-12] MEDS: DULoxetine 30 MG CAP (CYMBALTA) PO SCH (08:59)
[2016-06-12] MEDS: SENNA 8.6 MG TAB (SENOKOT) PO SCH (08:59)
[2016-06-12] MEDS: NYSTATIN 500,000 U/5 ML SUSP UDC SS SCH ×3 (08:59→20:35)
--- NOTE | 2016-06-12 12:00 | IPNPDOC ---
Text Note Date of Service The patient was seen on 06/12/16 at 11:59. NOTE Subjective: Patient denies any complaints. Feels well. No bleeding. Objective: Vitals: (see below) General: No acute distress, laying comfortably in bed. HEENT: Moist mucous membranes. Neck: No JVD or lymphadenopathy Cardiac: RRR, No murmurs Pulm: Clear to auscultation b/l. No wheezing, rhonchi. Chest tube insertion site with bandage clean, dry. No bleeding noted. Abd: NT/ND + BS Ext: No edema or cyanosis Labs (see below) Images: Assessment/Plan 1. Acute Blood loss anemia from chest tube incision site as well as hematuria; resolved. Occurred while patient was being bridged to Coumadin.Target INR closer to 2.0. Patient has not had any further episodes of bleeding. Status post 2 unit PRBC (second unit 06/10). H&H has been stable. INRs are. Now. We'll decreased dose of Coumadin to 4 mg. 2. Hematuria- resolved. Patient was on anticoagulation however will need to help patient's urology follow-up for cystoscopy. 3. Status posts hypercapnic respiratory failure with underlying community- acquired pneumonia, as well as pneumothorax; extubated. Status post BiPAP. Status post is a through and Rocephin. Status post steroids. 4. Diastolic heart failure EF of 65%. Appears to be compensated. Home Lasix dose has been held as the patient has metabolic alkalosis at this point. Adequately diuresed. 5. Chronic atrial fibrillation- diltiazem dose increased. INR still subtherapeutic. Continue Coumadin 3 mg, for a goal INR closer to 2.0. 6. Leukocytosis- secondary to steroids. No sores infection. We'll continue to monitor. 7. Diabetes mellitus-continue sliding scale insulin 8. Hyperlipidemia on Crestor 9. Depression- continue home meds 10. History of CAD status post CABG on aspirin and statin 11. Hypertension continue current meds. 12. Obesity 13. GERD continue PPI DVT prophy: On Coumadin Continue physical therapy Will likely need rehabilitation placement. Plan to be discharged in the next 24- 48 hours when placements as available as the patient's INR is therapeutic. VS,Fishbone, I+O VS, Fishbone, I+O Laboratory Tests 06/12/16 05:51 Calcium Level 8.8, Red Blood Count 3.22 L, Mean Corpuscular Volume 88.3, Mean Corpuscular Hemoglobin 28.0, Mean Corpuscular Hemoglobin Concent 31.7 L, Red Cell Distribution Width 18.4 H, Neutrophils (%) (Auto) 78.6 H, Lymphocytes (%) ( Auto) 9.4 L, Monocytes (%) (Auto) 5.5 H, Eosinophils (%) (Auto) 3.5 H, Basophils (%) (Auto) 0.5, Neutrophils # (Auto) 5.9, Lymphocytes # (Auto) 0.9 L, Monocytes # (Auto) 0.4, Eosinophils # (Auto) 0.3, Basophils # (Auto) 0.0 Vital Signs Date Time Temp Pulse Resp B/P Pulse Ox O2 Delivery O2 Flow Rate FiO2 06/12/16 06:00 98.9 93 20 143/63 94 Room Air 06/11/16 21:36 2.0 I&O- Last 24 Hours up to 6 AM 06/12/16 06:00 Intake Total 1740 ml Output Total 0 ml Balance 1740 ml ANSLEY MAYEN MD Jun 12, 2016 12:00
[2016-06-12 14:00] VITALS: BP 114/65
[2016-06-12] MEDS: WARFARIN SOD 4 MG TAB PO SCH (18:21)
[2016-06-12] MEDS: LISINOPRIL 5 MG TAB PO SCH (20:35)
[2016-06-12] MEDS: ROSUVASTATIN 10 MG TAB (CRESTOR) PO SCH (20:35)
[2016-06-12] MEDS: MONTELUKAST 10 MG TAB PO SCH (20:35)
[2016-06-12 22:00] VITALS: BP 142/63
[2016-06-13] MEDS: IPRATROPIUM 0.02% SOLN 0.5MG/2.5 ML NEB INH SCH ×4 (00:02→20:00)
[2016-06-13] MEDS: LEVALBUTEROL 1.25 MG/0.5 ML CONCENTRATE NEB INH SCH ×4 (00:02→20:00)
[2016-06-13 06:00] VITALS: BP 148/66
[2016-06-13] MEDS: SLF 3 ML SYR IV SCH ×3 (06:00→20:23)
[2016-06-13 06:36] LABS: BASO # 0.1 K/mm3 (0.0-0.2); BASO % 1.1 % (0.0-1.0); EOS # 0.2 K/mm3 (0.0-0.50); EOS % 3.9 % (0.0-3.0); INR 2.46; LARGE UNSTAINED CELL # 0.2 K/mm3 (0.0-0.4); LARGE UNSTAINED CELL % 2.6 % (0.0-4.0); LYMPH # 0.6 K/mm3 (1.5-4.5); MEAN CORPUSCULAR HEMOGLOBIN 27.7 pg (27.0-33.0); MEAN CORPUSCULAR HGB CONC 31.1 g/dl (32.0-36.5); MEAN CORPUSCULAR VOLUME 88.9 fl (80.0-96.0); MONO # 0.3 K/mm3 (0.0-0.8); MONO % 4.4 % (0.0-5.0); NEUTROPHILS # 4.8 K/mm3 (1.8-7.7); PLATELET COUNT, AUTOMATED 217 k/mm3 (150-450); RED CELL DISTRIBUTION WIDTH 18.3 % (11.5-14.5)
[2016-06-13 06:45] LABS: ANION GAP 5 MEQ/L (8-16); BLOOD UREA NITROGEN 13 MG/DL (7-18); CALCIUM LEVEL 8.7 MG/DL (8.8-10.2); CARBON DIOXIDE LEVEL 36 MEQ/L (21-32); CHLORIDE LEVEL 102 MEQ/L (98-107); CREATININE FOR GFR 0.85 MG/DL (0.55-1.02); GLOMERULAR FILTRATION RATE > 60.0 (>39); GLUCOSE, FASTING 140 MG/DL (83-110); MAGNESIUM LEVEL 1.9 MG/DL (1.8-2.4); POTASSIUM SERUM 4.3 MEQ/L (3.5-5.1); SODIUM LEVEL 143 MEQ/L (136-145)
[2016-06-13] MEDS: ADVAIR DISKUS 250/50 INH PWD INH SCH ×2 (07:26→20:37)
[2016-06-13] MEDS: DULoxetine 30 MG CAP (CYMBALTA) PO SCH (08:02)
[2016-06-13] MEDS: NYSTATIN 500,000 U/5 ML SUSP UDC SS SCH ×3 (08:02→20:21)
[2016-06-13] MEDS: ASPIRIN 81 MG ENTERIC TAB PO SCH (08:02)
[2016-06-13] MEDS: FAMOTIDINE 20 MG TAB PO SCH ×2 (08:02→20:21)
[2016-06-13] MEDS: DOCUSATE SODIUM 100 MG CAP PO SCH ×2 (08:02→20:21)
[2016-06-13] MEDS: SENNA 8.6 MG TAB (SENOKOT) PO SCH (08:02)
[2016-06-13] MEDS: MIRALAX *UNIT DOSE* 17GM PACKET PO SCH ×2 (08:02→20:21)
[2016-06-13] MEDS: NEUTRA-PHOS 1.25 GM PACKET PO SCH ×3 (08:02→17:25)
[2016-06-13] MEDS: HumaLOG INSULIN (NovoLOG) PER UNIT SC SCH ×4 (08:03→20:23)
[2016-06-13] MEDS ORDERED: FUROSEMIDE 20 MG/2 ML VIAL (J1940) IV ONE (12:00)
[2016-06-13] MEDS ORDERED: FUROSEMIDE 40 MG TAB PO ONE (12:00)
[2016-06-13 14:00] VITALS: BP 145/67
[2016-06-13] MEDS: WARFARIN SOD 4 MG TAB PO SCH (17:25)
[2016-06-13] MEDS: ROSUVASTATIN 10 MG TAB (CRESTOR) PO SCH (20:21)
[2016-06-13] MEDS: LISINOPRIL 5 MG TAB PO SCH (20:21)
[2016-06-13] MEDS: MONTELUKAST 10 MG TAB PO SCH (20:23)
[2016-06-13 22:00] VITALS: BP 140/91
[2016-06-14] MEDS: IPRATROPIUM 0.02% SOLN 0.5MG/2.5 ML NEB INH SCH ×4 (01:42→21:15)
[2016-06-14] MEDS: LEVALBUTEROL 1.25 MG/0.5 ML CONCENTRATE NEB INH SCH ×4 (01:42→21:16)
[2016-06-14 06:00] VITALS: BP 148/67
[2016-06-14] MEDS: SLF 3 ML SYR IV SCH ×3 (06:00→21:29)
[2016-06-14 06:49] LABS: ANION GAP 5 MEQ/L (8-16); BLOOD UREA NITROGEN 13 MG/DL (7-18); CALCIUM LEVEL 8.8 MG/DL (8.8-10.2); CARBON DIOXIDE LEVEL 36 MEQ/L (21-32); CHLORIDE LEVEL 101 MEQ/L (98-107); CREATININE FOR GFR 0.85 MG/DL (0.55-1.02); GLOMERULAR FILTRATION RATE > 60.0 (>39); GLUCOSE, FASTING 127 MG/DL (83-110); POTASSIUM SERUM 4.4 MEQ/L (3.5-5.1); SODIUM LEVEL 142 MEQ/L (136-145)
[2016-06-14 06:53] LABS: INR 2.26
[2016-06-14 06:59] LABS: EOS # 0.2 K/mm3 (0.0-0.50); EOS % 4.7 % (0.0-3.0); LARGE UNSTAINED CELL # 0.2 K/mm3 (0.0-0.4); LARGE UNSTAINED CELL % 3.8 % (0.0-4.0); LYMPH # 0.7 K/mm3 (1.5-4.5); LYMPH % 10.3 % (24.0-44.0); MEAN CORPUSCULAR HEMOGLOBIN 27.9 pg (27.0-33.0); MEAN CORPUSCULAR HGB CONC 30.9 g/dl (32.0-36.5); MEAN CORPUSCULAR VOLUME 90.2 fl (80.0-96.0); MONO # 0.4 K/mm3 (0.0-0.8); MONO % 6.6 % (0.0-5.0); NEUTROPHILS # 3.8 K/mm3 (1.8-7.7); NEUTROPHILS % 73.5 % (36.0-66.0); PLATELET COUNT, AUTOMATED 251 k/mm3 (150-450); RED CELL DISTRIBUTION WIDTH 18.9 % (11.5-14.5); WHITE BLOOD COUNT 5.2 K/mm3 (4.0-10.0)
[2016-06-14] MEDS: ADVAIR DISKUS 250/50 INH PWD INH SCH ×2 (07:35→21:15)
[2016-06-14] MEDS: NEUTRA-PHOS 1.25 GM PACKET PO SCH ×3 (08:00→18:22)
[2016-06-14] MEDS: FAMOTIDINE 20 MG TAB PO SCH ×2 (08:14→20:51)
[2016-06-14] MEDS: DOCUSATE SODIUM 100 MG CAP PO SCH ×2 (08:15→20:50)
[2016-06-14] MEDS: DULoxetine 30 MG CAP (CYMBALTA) PO SCH (08:15)
[2016-06-14] MEDS: ASPIRIN 81 MG ENTERIC TAB PO SCH (08:16)
[2016-06-14] MEDS: HumaLOG INSULIN (NovoLOG) PER UNIT SC SCH ×4 (08:16→20:51)
[2016-06-14] MEDS: SENNA 8.6 MG TAB (SENOKOT) PO SCH (09:00)
[2016-06-14] MEDS: MIRALAX *UNIT DOSE* 17GM PACKET PO SCH ×2 (09:00→20:50)
[2016-06-14] MEDS: NYSTATIN 500,000 U/5 ML SUSP UDC SS SCH ×3 (09:00→20:50)
[2016-06-14 15:00] VITALS: BP 124/58
[2016-06-14] MEDS: WARFARIN SOD 4 MG TAB PO SCH (17:05)
[2016-06-14] MEDS: LISINOPRIL 5 MG TAB PO SCH (20:50)
[2016-06-14] MEDS: MONTELUKAST 10 MG TAB PO SCH (20:50)
[2016-06-14] MEDS: ROSUVASTATIN 10 MG TAB (CRESTOR) PO SCH (20:51)
[2016-06-14 22:00] VITALS: BP 137/62
[2016-06-15] MEDS: IPRATROPIUM 0.02% SOLN 0.5MG/2.5 ML NEB INH SCH ×4 (02:00→20:00)
[2016-06-15] MEDS: LEVALBUTEROL 1.25 MG/0.5 ML CONCENTRATE NEB INH SCH ×4 (02:00→20:00)
[2016-06-15] MEDS: SLF 3 ML SYR IV SCH ×3 (05:41→21:31)
[2016-06-15 07:01] LABS: INR 2.23
[2016-06-15] MEDS: ADVAIR DISKUS 250/50 INH PWD INH SCH ×2 (07:30→20:16)
[2016-06-15] MEDS: DOCUSATE SODIUM 100 MG CAP PO SCH ×2 (08:09→21:30)
[2016-06-15] MEDS: SENNA 8.6 MG TAB (SENOKOT) PO SCH (08:09)
[2016-06-15] MEDS: HumaLOG INSULIN (NovoLOG) PER UNIT SC SCH ×4 (08:10→20:24)
[2016-06-15] MEDS: MIRALAX *UNIT DOSE* 17GM PACKET PO SCH ×2 (08:10→21:30)
[2016-06-15] MEDS: NEUTRA-PHOS 1.25 GM PACKET PO SCH ×3 (08:10→17:56)
[2016-06-15] MEDS: DULoxetine 30 MG CAP (CYMBALTA) PO SCH (08:10)
[2016-06-15] MEDS: FAMOTIDINE 20 MG TAB PO SCH ×2 (08:10→21:30)
[2016-06-15] MEDS: ASPIRIN 81 MG ENTERIC TAB PO SCH (08:10)
[2016-06-15] MEDS: ACETAMINOPHEN TAB 650MG DOSE (2X325MG) PO PRN (12:56)
[2016-06-15] MEDS: WARFARIN SOD 4 MG TAB PO SCH (17:56)
[2016-06-15] MEDS: LISINOPRIL 5 MG TAB PO SCH (21:30)
[2016-06-15] MEDS: MONTELUKAST 10 MG TAB PO SCH (21:30)
[2016-06-15] MEDS: ROSUVASTATIN 10 MG TAB (CRESTOR) PO SCH (21:30)
[2016-06-16] MEDS: ACETAMINOPHEN TAB 650MG DOSE (2X325MG) PO PRN (03:18)
[2016-06-16 06:00] VITALS: BP 121/58
[2016-06-16] MEDS: SLF 3 ML SYR IV SCH (06:47)
[2016-06-16] MEDS: HumaLOG INSULIN (NovoLOG) PER UNIT SC SCH ×2 (07:30→11:42)
[2016-06-16] MEDS: ADVAIR DISKUS 250/50 INH PWD INH SCH (07:40)
[2016-06-16] MEDS: IPRATROPIUM 0.02% SOLN 0.5MG/2.5 ML NEB INH SCH (07:41)
[2016-06-16] MEDS: LEVALBUTEROL 1.25 MG/0.5 ML CONCENTRATE NEB INH SCH (07:41)
[2016-06-16 09:00] VITALS: BP 156/68
[2016-06-16] MEDS: DOCUSATE SODIUM 100 MG CAP PO SCH (09:00)
[2016-06-16] MEDS: SENNA 8.6 MG TAB (SENOKOT) PO SCH (09:00)
[2016-06-16] MEDS: NEUTRA-PHOS 1.25 GM PACKET PO SCH ×2 (10:06→11:40)
[2016-06-16] MEDS: DULoxetine 30 MG CAP (CYMBALTA) PO SCH (10:06)
[2016-06-16] MEDS: FAMOTIDINE 20 MG TAB PO SCH (10:06)
[2016-06-16] MEDS: MIRALAX *UNIT DOSE* 17GM PACKET PO SCH (10:06)
[2016-06-16] MEDS: ASPIRIN 81 MG ENTERIC TAB PO SCH (10:06)
[2016-06-16] MEDS ORDERED: MAPA325T2 PO (10:25)
[2016-06-16] MEDS ORDERED: PROA1AER INH (10:25)
[2016-06-16] MEDS ORDERED: DILT30TA PO (10:25)
[2016-06-16] MEDS ORDERED: COLA100C PO (10:25)
[2016-06-16] MEDS ORDERED: OCEA0.654 (10:25)
[2016-06-16] MEDS ORDERED: SENN1TAB4 PO (10:25)
[2016-06-16] MEDS ORDERED: DULO30CA PO (10:25)
[2016-06-16] MEDS ORDERED: FAMO20TA PO (10:25)
[2016-06-16] MEDS ORDERED: ADV250INH INH (10:25)
[2016-06-16] MEDS ORDERED: MONT10TA2 PO (10:25)
[2016-06-16] MEDS ORDERED: ROSU10TA PO (10:25)
[2016-06-16] MEDS ORDERED: LISI-542 PO (10:25)
[2016-06-16] MEDS ORDERED: INSUHUMDS SC ×2 (10:25)
[2016-06-16] MEDS ORDERED: BREO1INH INH (10:25)
[2016-06-16] MEDS ORDERED: DRIS50002 PO (10:25)
[2016-06-16] MEDS ORDERED: NEUTPW PO (10:25)
[2016-06-16] MEDS ORDERED: ASPI81TAEC PO (10:25)
[2016-06-16] MEDS ORDERED: COUM1TAB14 PO (10:25)
[2016-06-16] MEDS ORDERED: PEG1POW PO (10:25)
[2016-06-16 11:42] VITALS: BP 143/66
[2016-06-16 12:00] VITALS: BP 143/66
--- NOTE | 2016-06-16 16:50 | DSES ---
DATE OF ADMISSION: 05/21/2016 DATE OF DISCHARGE: 06/16/2016 DATE OF ADMISSION: 05/21/2016 DATE OF DISCHARGE: 06/16/2016 SPECIALISTS INVOLVED IN HER STAY: Included Dr. Geiger, Dr. Wang. COMPLICATIONS DURING STAY: Included placement of right sided chest tube, endotracheal intubation, blood transfusion. DISCHARGE DIAGNOSES: 1. Acute blood loss anemia from chest tube incision site. 2. Hematuria. 3. Hypercapnic respiratory failure due to underlying community-acquired pneumonia. 4. Spontaneous pneumothorax. 5. Congestive heart failure (CHF), diastolic dysfunction. Left ventricular ejection fraction 65%. 6. Chronic atrial fibrillation. 7. Leukocytosis. 8. Diabetes. 9. Hyperlipidemia. 10. Depression. 11. Coronary artery disease, status post coronary artery bypass graft (CABG). 12. Hypertension. 13. Obesity. 14. Gastroesophageal reflux disease (GERD). SUMMARY OF HER HOSPITALIZATION: The patient presented from [facility] with respiratory failure, which required intubation and mechanical ventilation. Respiratory distress continued. She was found to have a pneumothorax and healthcare-associated pneumonia. She was admitted to the [facility] service and was treated empirically, requiring chest tube and intubation. Thought to have a COPD exacerbation and decompensated diastolic congestive heart failure. She improved slowly and required noninvasive ventilation. She was transferred to the hospitalist service, was bridged with Lovenox while awaiting therapeutic Coumadin level. Went on to have bleeding from the previous chest tube incision site and hematuria while INR was increasing, was transfused 2 units of blood. It was thought at that time that it was best to discontinue bridging and continue with Coumadin until she was therapeutic. At this point, she is being transferred to subacute rehabilitation to complete her recovery. On the day of discharge, she is feeling well. She has no complaints of pain, chest pain, shortness of breath. She is looking forward to her rehabilitation and then eventually getting home. Temperature is 97.6, pulse 88, respiratory rate 18, blood pressure 156/68, 96% on 2 liters nasal cannula. Input and output notable for a positive fluid balance of +100, two bowel movements on the day prior to discharge. She is awake, alert. Breathing is symmetrical and rested. Heart is distant sounding. Normal S1, S2. Abdomen is soft, doughy, nontender. White cell count 5.2, hemoglobin 9, platelets of 251. BUN 13, creatinine 0.85. DISCHARGE INSTRUCTIONS: Include the following: Followup with Dr. Hernandez upon discharge from [facility]. Activity as tolerated. Continue consistent carbohydrate diet. Continue: - Tylenol as needed for pain or fever - aspirin 81 mg by mouth daily - diltiazem currently on 90 mg by mouth every 6 hours, which can likely be transitioned to a long-acting medication at the [facility] - Colace 100 mg by mouth twice a day - Cymbalta 60 mg by mouth daily - Pepcid 20 mg by mouth twice a day - Continue insulin sliding scale as written - Lisinopril 5 mg by mouth daily at bedtime - Singulair 10 mg by mouth daily at bedtime - MiraLAX one packet by mouth twice daily - potassium phos and sodium phos packets by mouth with meals - Crestor 10 mg by mouth daily at bedtime - Advair Diskus 250/50 inhaled twice daily - Senokot S one tablet by mouth daily - [place] spray nasal spray as needed for nasal dryness - Coumadin 4 mg by mouth daily - Continue albuterol one puff every 4 hours as needed for shortness of breath - Breo Ellipta inhaled daily - vitamin D 50,000 units weekly Recommend checking PT/INR twice weekly. The patient has required oxygen supplementation chronically 2 liters of oxygen 24 hours via nasal cannula. The patient does see Dr. Geiger as an outpatient.
== END 2016-06-16 12:45 | DRG 207 ==
LOC: M ICU 14:35 → M PCU 06-01 12:27 → M MS5PR 06-10 19:56
PROVIDERS: ADMIT Internal Medicine Pulmonary Disease; ATTEND Internal Medicine
PROC: 5A1955Z Respiratory Ventilation, Greater than 96 Consecutive Hours (ICD-10-PCS; principal; 2016-05-21)
PROC: 0W9930Z Drainage of Right Pleural Cavity with Drainage Device, Percutaneous Approach (ICD-10-PCS; 2016-05-21)
PROC: 30233N1 Transfusion of Nonautologous Red Blood Cells into Peripheral Vein, Percutaneous Approach (ICD-10-PCS; 2016-06-05)
DX: J96.21 Acute and chronic respiratory failure with hypoxia (principal); J86.0 Pyothorax with fistula; J93.83 Other pneumothorax; N17.9 Acute kidney failure, unspecified; J93.82 Other air leak; D62 Acute posthemorrhagic anemia; D68.32 Hemorrhagic disorder due to extrinsic circulating anticoagulants; I50.32 Chronic diastolic (congestive) heart failure; J95.831 Postprocedural hemorrhage of a respiratory system organ or structure following other procedure; E11.9 Type 2 diabetes mellitus without complications; E78.5 Hyperlipidemia, unspecified; F32.9 Major depressive disorder, single episode, unspecified; I25.10 Atherosclerotic heart disease of native coronary artery without angina pectoris; E66.9 Obesity, unspecified; K21.9 Gastro-esophageal reflux disease without esophagitis; I10 Essential (primary) hypertension; I48.91 Unspecified atrial fibrillation; Z79.82 Long term (current) use of aspirin; Z79.899 Other long term (current) drug therapy; R29.6 Repeated falls; Z88.5 Allergy status to narcotic agent; Z88.2 Allergy status to sulfonamides; R31.9 Hematuria, unspecified

== ENCOUNTER → 2016-06-20 | Outpatient (REF) ==
[~2016-06-20] MED LIST changes: +ADV250INH INH; +ASPI81TAEC PO; +COLA100C PO; +COUM1TAB14 PO; +DILT30TA PO; +DULO30CA PO; +FAMO20TA PO; +INSUHUMDS SC; +LISI-542 PO; +MAPA325T2 PO; +NEUTPW PO; +OCEA0.654; +PEG1POW PO; +SENN1TAB4 PO; +WARF-23 PO
[2016-06-20 08:41] LABS: MEAN CORPUSCULAR HEMOGLOBIN 28.8 pg (27.0-33.0); MEAN CORPUSCULAR HGB CONC 30.9 g/dl (32.0-36.5); MEAN CORPUSCULAR VOLUME 93.4 fl (80.0-96.0); RED CELL DISTRIBUTION WIDTH 18.3 % (11.5-14.5); WHITE BLOOD COUNT 4.2 K/mm3 (4.0-10.0)
[2016-06-20 08:48] LABS: INR 1.89
[2016-06-20 08:56] LABS: ANION GAP 4 MEQ/L (8-16); BLOOD UREA NITROGEN 21 MG/DL (7-18); CALCIUM LEVEL 8.7 MG/DL (8.8-10.2); CARBON DIOXIDE LEVEL 37 MEQ/L (21-32); CHLORIDE LEVEL 103 MEQ/L (98-107); CREATININE FOR GFR 0.87 MG/DL (0.55-1.02); GLOMERULAR FILTRATION RATE > 60.0 (>39); GLUCOSE, FASTING 129 MG/DL (83-110); SODIUM LEVEL 144 MEQ/L (136-145)
== END ==
LOC: SKLAB2 07:00
PROVIDERS: ATTEND Internal Medicine
DX: I48.91 Unspecified atrial fibrillation (principal); I10 Essential (primary) hypertension

== ENCOUNTER → 2016-06-27 | Outpatient (REF) ==
[2016-06-27 09:01] LABS: MEAN CORPUSCULAR HEMOGLOBIN 28.8 pg (27.0-33.0); RED CELL DISTRIBUTION WIDTH 18.4 % (11.5-14.5); WHITE BLOOD COUNT 5.3 K/mm3 (4.0-10.0)
[2016-06-27 09:10] LABS: ANION GAP 3 MEQ/L (8-16); BLOOD UREA NITROGEN 16 MG/DL (7-18); CALCIUM LEVEL 8.9 MG/DL (8.8-10.2); CARBON DIOXIDE LEVEL 38 MEQ/L (21-32); CHLORIDE LEVEL 102 MEQ/L (98-107); CREATININE FOR GFR 0.72 MG/DL (0.55-1.02); GLOMERULAR FILTRATION RATE > 60.0 (>39); GLUCOSE, FASTING 110 MG/DL (83-110); POTASSIUM SERUM 4.1 MEQ/L (3.5-5.1); SODIUM LEVEL 143 MEQ/L (136-145)
[2016-06-27 09:20] LABS: INR 1.86
== END ==
LOC: SKLAB2 07:00
PROVIDERS: ATTEND Internal Medicine
DX: I48.91 Unspecified atrial fibrillation (principal)

== ENCOUNTER → 2016-06-30 | Outpatient (REF) ==
[~2016-06-30] MED LIST changes: +ACET-654 PO; +ALBU83IN INH; +BUDE0.5S6 INH; +CARD240C5 PO; +DOCU100C PO; +DULC10SU2 PR; +DULO1CAP3 PO; +ENEMENE3 PR; +FAMO1TAB11 PO; +MILKSUS PO; +MIRA3350 PO; +MIRA33504 PO; +SENN8.6T10 PO; +VITA100066 PO; +VITA50003 PO; +XARE20TA PO; +ZOFR20TA PO
--- NOTE | 2016-06-30 14:42 | REP ---
CHEST: Two views of the chest are performed and compared to a prior study of 06/02/2016 as well as multiple other prior exams. Chronic pleural thickening is seen at the left costophrenic angle, unchanged. There is mild bibasilar interstitial fibrotic change. I see no acute infiltrate or pulmonary edema. Heart is upper limits of normal in size. Mediastinal silhouette is unchanged. There are multiple sternal wires and mediastinal clips present. There are mild degenerative changes of the spine. IMPRESSION: Stable chronic findings. No evidence of acute infiltrate or pulmonary edema. Signed by Froilan Whalen MD 07/01/2016 06:27 P
== END ==
LOC: SKLAB2 13:05
PROVIDERS: ATTEND Internal Medicine
DX: J40 Bronchitis, not specified as acute or chronic (principal)

== ENCOUNTER 2016-07-01 01:49 | Inpatient (IN) | payer MEDICARE, MEDICAID ==
[~2016-07-01] VITALS: Ht 165.1 cm; Wt 84.0 kg
[2016-07-01] VITALS (8 sets, daily range): BP systolic 117–152; BP diastolic 59–74; O2SAT 93–94
[~2016-07-01 01:49] MED LIST changes: -ACET-654 PO; -ALBU83IN INH; -BUDE0.5S6 INH; -CARD240C5 PO; -DOCU100C PO; -DULC10SU2 PR; -DULO1CAP3 PO; -ENEMENE3 PR; -FAMO1TAB11 PO; -MILKSUS PO; -MIRA3350 PO; -MIRA33504 PO; -SENN8.6T10 PO; -VITA100066 PO; -VITA50003 PO; -XARE20TA PO; -ZOFR20TA PO
[2016-07-01] MEDS ORDERED: IPRATROPIUM 0.5MG/ALBUTEROL 2.5MG INH SOL UD 3ML (DUONEB)(J7620) As Ordered ONE ×2 (02:16→02:45)
[2016-07-01] MEDS ORDERED: dexameTHASONE 4 MG/ML 1ML VIAL (J1100) As Ordered ONE (02:31)
[2016-07-01 02:33] LABS: ABG BASE EXCESS 11.1 (-2.0-2.0); ABG DEVICE NASAL CANN; ABG HCO3 40.6 MEQ/L (22.0-26.0); ABG PARTIAL PRESSURE O2 143.5 mmHg (75.0-100.0); ABG STANDARD HCO3 34.9 MEQ/L (22.0-26.0); ABG TOTAL CO2 43.4 MEQ/L (23.0-31.0); ABG pH (ARTERIAL) 7.263 UNITS (7.350-7.450)
[2016-07-01 02:35] LABS: ANION GAP 3 MEQ/L (8-16); BLOOD UREA NITROGEN 22 MG/DL (7-18); CALCIUM LEVEL 8.5 MG/DL (8.8-10.2); CARBON DIOXIDE LEVEL 38 MEQ/L (21-32); CHLORIDE LEVEL 101 MEQ/L (98-107); CREATININE FOR GFR 0.84 MG/DL (0.55-1.02); GLOMERULAR FILTRATION RATE > 60.0 (>39); GLUCOSE, FASTING 174 MG/DL (83-110); POTASSIUM SERUM 4.8 MEQ/L (3.5-5.1); SODIUM LEVEL 142 MEQ/L (136-145)
[2016-07-01 02:36] LABS: ABG PARTIAL PRESSURE CO2 91.9 mmHg (35.0-45.0)
[2016-07-01 02:36] LABS: BASO % 0.3 % (0.0-1.0); EOS % 0.1 % (0.0-3.0); LARGE UNSTAINED CELL # 0.2 K/mm3 (0.0-0.4); LYMPH # 1.2 K/mm3 (1.5-4.5); LYMPH % 11.2 % (24.0-44.0); MEAN CORPUSCULAR HGB CONC 31.1 g/dl (32.0-36.5); MEAN CORPUSCULAR VOLUME 93.1 fl (80.0-96.0); MONO # 0.5 K/mm3 (0.0-0.8); NEUTROPHILS # 8.5 K/mm3 (1.8-7.7); NEUTROPHILS % 81.4 % (36.0-66.0); PLATELET COUNT, AUTOMATED 191 k/mm3 (150-450); RED CELL DISTRIBUTION WIDTH 17.9 % (11.5-14.5); WHITE BLOOD COUNT 10.4 K/mm3 (4.0-10.0)
[2016-07-01 02:37] LABS: ADD MORPHOLOGY? YES
[2016-07-01] MEDS ORDERED: FUROSEMIDE 20 MG/2 ML VIAL (J1940) As Ordered ONE (02:47)
[2016-07-01] MEDS ORDERED: NITROGLYCERIN 2% OINT 1 GM *U/D* PKT As Ordered ONE (02:47)
[2016-07-01] MEDS ORDERED: FUROSEMIDE 40 MG/4 ML VIAL (J1940) As Ordered ONE (02:47)
[2016-07-01] MEDS ORDERED: VANCOMYCIN 750 MG/25 ML VIAL (J3370) As Ordered ONE (03:25)
[2016-07-01] MEDS ORDERED: LevoFLOXacin(LEVAQUIN)500 MG/100 ML BAG (J1956) As Ordered ONE (03:25)
[2016-07-01 03:26] LABS: THEOPHYLLINE LEVEL < 2.0 UG/ML (10.0-20.0)
[2016-07-01 03:45] LABS: ANISOCYTOSIS 2+
[2016-07-01] MEDS ORDERED: LISI-542 PO (03:56)
[2016-07-01] MEDS ORDERED: DULO1CAP3 PO (03:56)
[2016-07-01] MEDS ORDERED: XARE20TA PO (03:56)
[2016-07-01] MEDS ORDERED: MIRA3350 PO (03:56)
[2016-07-01] MEDS ORDERED: ROSU10TA PO (03:56)
[2016-07-01] MEDS ORDERED: VITA50003 PO (03:56)
[2016-07-01] MEDS ORDERED: SENN8.6T10 PO (03:56)
[2016-07-01] MEDS ORDERED: FAMO1TAB11 PO (03:56)
[2016-07-01] MEDS ORDERED: DOCU100C PO (03:56)
[2016-07-01] MEDS ORDERED: IPRASOL4 INH (03:56)
[2016-07-01] MEDS ORDERED: VITA100066 PO (03:56)
[2016-07-01] MEDS ORDERED: ASPI81TAEC PO (03:56)
[2016-07-01] MEDS ORDERED: BUDE0.5S6 INH (03:56)
[2016-07-01] MEDS ORDERED: MONT10TA2 PO (03:56)
[2016-07-01] MEDS ORDERED: ACET-654 PO (04:02)
[2016-07-01] MEDS ORDERED: TYLE325T5 PO (04:02)
[2016-07-01] MEDS ORDERED: ZOFR20TA PO (04:02)
[2016-07-01] MEDS ORDERED: DULC10SU2 PR (04:02)
[2016-07-01] MEDS ORDERED: ENEMENE3 PR (04:02)
[2016-07-01] MEDS ORDERED: ALBU83IN INH (04:02)
[2016-07-01] MEDS ORDERED: MILKSUS PO (04:02)
[2016-07-01] MEDS ORDERED: CARD240C5 PO (04:02)
[2016-07-01] MEDS ORDERED: MIRA33504 PO (04:02)
[2016-07-01] MEDS ORDERED: OCEA0.654 (04:02)
[2016-07-01] MEDS ORDERED: ISOVUE-370 76% 100ML VIAL (Q9967) As Ordered ONE (04:44)
[2016-07-01] MEDS ORDERED: MOM 30ML SUSPENSION UDC PO PRN (05:30)
[2016-07-01] MEDS ORDERED: ONDANSETRON 4MG/2ML VIAL (J2405) IV PRN (05:30)
[2016-07-01] MEDS ORDERED: SODIUM CHLORIDE NASAL 0.65% SPRAY BTL (OCEAN) PRN (05:30)
[2016-07-01] MEDS ORDERED: ALBUTEROL SULFATE 2.5 MG/0.5 ML INH NEB SOLN INH PRN (05:30)
[2016-07-01] MEDS ORDERED: FLEET ENEMA PR PRN (05:30)
--- NOTE | 2016-07-01 05:40 | REPUSA ---
CLINICAL HISTORY: Dyspnea, exclude PE. TECHNIQUE: Multiple incremental axial, coronal and oblique images are obtained from the thoracic inle t to the upper abdomen. Intravenous contrast material was administered as per pulmonary embolism prot ocol. COMMENTS: Moderate centrilobular pulmonary emphysema. Diffuse bilateral groundglass densities of the lungs more prominent in the right upper lobe, left upp er lobe and bilateral lower lobes. There is excellent opacification of pulmonary arterial system without evidence for pulmonary embolism . Aorta is of normal caliber without evidence for dissection or aneurysm. There is no evidence of pleural or parenchymal mass. There are no pleural effusions. There is no evid ence of hilar or mediastinal lymphadenopathy. The heart and great vessels are within normal limits. Images of the upper abdomen demonstrate no evidence of adrenal mass. The bony structures are free of lytic or blastic lesions. Multilevel degenerative changes are seen in volving the visualized thoracolumbar spine. Scattered calcifications are seen involving the aorta and major branches compatible with atherosclero sis. IMPRESSION: No evidence for pulmonary embolism. Multifocal bronchopneumonia. Moderate centrilobular pulmonary emphysema. Thank you for your kind referral of this patient.
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
[2016-07-01 07:32] LABS: VENOUS BASE EXCESS 5.8 (-2.0-2.0); VENOUS O2 SATURATION 98.8 % (60.0-80.0); VENOUS PARTIAL PRESSURE CO2 62.7 mmHg (38.0-50.0); VENOUS PARTIAL PRESSURE O2 135.8 mmHg (30.0-50.0); VENOUS STANDARD HCO3 29.7 MEQ/L; VENOUS TOTAL CO2 34.8 MEQ/L (24.0-28.0)
--- NOTE | 2016-07-01 07:49 | EDDOCDS ---
Physician Documentation [facility] Name: Jennifer Gooden Age: 70 yrs Sex: Female : 1945 Arrival Date: 07/01/2016 Time: 01:49 Bed 3 Private MD: Disposition: 07/01/16 03:38 Hospitalization ordered by Phong Becker for Inpatient Admission. Preliminary diagnosis are Respiratory failure, unspecified with hypercapnia, Pneumonia in diseases classified elsewhere - possible. - Bed requested for M ICU. - Status is Inpatient Admission. pml - Condition is Stable. - Problem is new. - Symptoms have improved. Historical: - Allergies: no known allergies; - Home Meds: 1. Cardizem CD 240 mg Oral cp24 1 cap once daily 2. Xarelto 20 mg oral tab 1 tab once daily 3. vit D3-folic [id number] 2,000-800-0.32 unit-mcg-mg oral tab 4. Milk of Magnesia Oral once daily 2400mg/10ml 5. tubersol 6. aspirin 81 mg Oral tab 1 tab once daily 7. Colace 100 mg oral cap 1 cap once daily 8. Cymbalta 60 mg Oral cpDR 1 cap once daily 9. famotidine 20 mg Oral tab 1 tab 2 times per day 10. lisinopril 5 mg Oral tab 1 tab once daily 11. Singulair 10 mg Oral tab 1 tab once daily 12. Crestor 10 mg Oral tab 1 tab once daily 13. sennosides 8.6 mg oral cap 2 caps once daily 14. vit d12 daily 96526 units 15. Albuterol Nebulizer - PMHx: Anemia; type 2 diabetes; vit d deficiency; hyperlipidemia; Hypertension; angina pectoris; Atrial Fib; CHF; GERD; Constipation, Chronic; Hematuria; chronic respiratory failure; - PSHx: Cesearean Section; Tubal ligation; Knee surgery- Right; Appendectomy; Tonsillectomy; - Social history: Smoking status: Patient states former smoker of tobacco. No barriers to communication noted, The patient speaks fluent Nigerien. - Family history: Not pertinent. - : The pt / caregiver states he / she is on anticoagulants: Xarelto Home medication list is obtained from the facility [facility]. - Exposure Risk Screening:: None identified. Vital Signs: 07/01 01:56 BP 162 / 73 (auto/); kas2 01:56 Pulse Ox 97% ; kas2 02:00 BP 156 / 77 (auto/); kas2 02:00 Pulse 122 MON; Pulse Ox 98% ; kas2 02:06 BP 125 / 63 (auto/); kas2 02:06 Pulse 125 MON; Pulse Ox 99% ; kas2 02:11 Pulse Ox 97% 4 lpm ; jh6 02:11 BP 198 / 87; Pulse 127; Resp 32; Pulse Ox 100% on Venturi mask; Weight 82.33 kg / kas2 181.51 lbs; Height 5 ft. 5 in. (165.10 cm); Pain 0/10; 02:21 BP 127 / 64 (auto/); kas2 02:21 Pulse 131 MON; Pulse Ox 96% ; kas2 02:36 BP 140 / 71 (auto/); kas2 02:36 Pulse 129 MON; Pulse Ox 95% ; kas2 02:51 BP 121 / 56 (auto/); kas2 02:51 Pulse 123 MON; Pulse Ox 98% ; kas2 03:05 Resp 28; Temp 98.9(TE); kas2 03:06 BP 140 / 69 (auto/); kas2 03:06 Pulse 127 MON; Pulse Ox 98% ; kas2 03:21 BP 137 / 62 (auto/); kas2 03:21 Pulse 129 MON; Pulse Ox 98% ; kas2 03:36 BP 159 / 88 (auto/); kas2 03:36 Pulse 130 MON; Pulse Ox 96% ; kas2 03:51 BP 116 / 72 (auto/); kas2 03:51 Pulse 130 MON; Pulse Ox 96% ; kas2 04:21 BP 158 / 71 (auto/); kas2 04:21 Pulse 138 MON; Pulse Ox 94% ; kas2 04:36 BP 145 / 63 (auto/); kas2 04:36 Pulse 131 MON; Pulse Ox 95% ; kas2 05:09 Temp 97.9(TE); Pulse Ox 99% on BiPAP; Pain 0/10; kas2 05:20 BP 128 / 74 (auto/); kas2 05:20 Pulse 130 MON; Pulse Ox 92% ; kas2 05:35 BP 154 / 92 (auto/); kas2 05:35 Pulse 128 MON; Pulse Ox 99% ; kas2 05:51 BP 162 / 70 (auto/); kas2 05:51 Pulse 127 MON; Pulse Ox 99% ; kas2 06:06 BP 191 / 77 (auto/); kas2 06:06 Pulse 124 MON; Pulse Ox 96% ; kas2 06:21 BP 167 / 71 (auto/); kas2 06:21 Pulse 128 MON; Pulse Ox 97% ; kas2 06:35 BP 142 / 55 (auto/); kas2 06:35 Pulse 128 MON; Pulse Ox 97% ; kas2 06:41 Resp 20; Temp 98.6(TE); Pain 0/10; kas2 06:51 Pulse 127 MON; Pulse Ox 98% ; pml 06:51 BP 154 / 67 (auto/); pml 07:05 Pulse 129 MON; Pulse Ox 99% ; pml 07:05 BP 136 / 67 (auto/); pml 07:20 Pulse 127 MON; Pulse Ox 99% ; pml 07:20 BP 131 / 80 (auto/); pml 07:35 Pulse 129 MON; pml 07:35 BP 119 / 69 (auto/); pml 07:43 BP 119 / 69; Pulse 124; Resp 18; Temp 98.3; Pulse Ox 97% on R/A; pml 02:11 Body Mass Index 30.20 (82.33 kg, 165.10 cm) [facility] MDM: 02:17 IV Saline Lock ordered. cs11 02:17 Dexamethasone 12 mg IV at bolus once ordered. cs11 02:17 Albuterol-Ipratropium 1 neb Nebulizer every 20 minutes x3 ordered. cs11 02:17 Call Respiratory ordered. cs11 02:17 Call Respiratory ordered. cs11 02:17 IV Saline Lock ordered. cs11 02:17 -Blood Culture (Adults Only), peripheral from different site, or from device/port/PICC cs11 etc. if present ordered. 02:17 -Arterial Blood Gas Ordered. EDMS 02:17 CBC with Diff Ordered. EDMS 02:17 -Blood Culture Ordered. EDMS 02:17 MED Profile Ordered. EDMS 02:17 BNP Ordered. EDMS 02:17 Theophylline Level Ordered. EDMS 02:17 Lactic Acid (Whalen tube on ice) Ordered. EDMS 02:17 ECG WITH READING ER PHYS+CARDIAG ordered. EDMS 02:18 Call Respiratory complete. jlm 02:19 Chest, 1 View Ordered. EDMS 02:19 -Blood Culture (Adults Only), peripheral from different site, or from device/port/PICC jlm etc. if present complete. 02:19 Call Respiratory complete. jlm 02:20 BLOOD CULTURES Ordered. EDMS 02:34 Nitro-Bid Ointment 2 % 0.5 inches Transdermal once ordered. cs11 02:34 Furosemide 60 mg IVP once ordered. cs11 02:38 BIPAP INPATIENT+RESP-VENT ordered. EDMS 03:06 Harry ordered. kas2 03:16 -Arterial Blood Gas Reviewed. cs11 03:16 CBC with Diff Reviewed. cs11 03:16 MED Profile Reviewed. cs11 03:16 BNP Reviewed. cs11 03:16 Lactic Acid (Whalen tube on ice) Reviewed. cs11 03:20 levofloxacin 500 mg IVPB once over 60 mins ordered. cs11 03:20 vancomycin (loading dose for pt. wt. 60-69kg) 1500 mg IVPB once ordered. cs11 03:22 BED REQUEST+ADM ordered. EDMS 03:29 MED Profile Reviewed. cs11 03:29 Theophylline Level Reviewed. cs11 03:33 Financial registration complete. hs2 03:35 ARTERIAL BLOOD GAS Ordered. EDMS 03:36 -Arterial Blood Gas Ordered. EDMS 03:39 INFLUENZA A&B RAPID ANTIGEN Ordered. EDMS 04:05 [facility] Payment Agreement was scanned into [employer] and attached to record. hs2 04:16 CBC with Diff Reviewed. cs11 04:16 RBC MORPH PROF NO CHARGE Reviewed. cs11 04:19 CT Chest Angio R/O PE Ordered. EDMS 05:00 BIPAP INPATIENT ordered. EDMS 05:01 Admission / Observation Status ordered. EDMS 05:40 BIPAP INPATIENT ordered. EDMS 05:43 RESPIRATORY PANEL Ordered. EDMS 05:46 CONSISTENT CARBOHYDRATES ordered. EDMS 05:47 URINALYSIS Ordered. EDMS 05:47 URINE CULTURE Ordered. EDMS 07:04 VENOUS BLOOD GAS Ordered. EDMS 07:04 C REACTIVE PROTEIN QUANTITATIV Ordered. EDMS Administered Medications: 02:20 CANCELLED (Duplicate Order): Albuterol-Ipratropium 3 ml Inhalation once jh6 02:20 Drug: Albuterol-Ipratropium 1 neb [ipratropium-albuterol 0.5 mg-3 mg(2.5 mg base)/3 mL jh6 nebulization soln (1 neb)] Route: Nebulizer; 02:42 Drug: Dexamethasone 12 mg [dexamethasone 4 mg/mL injection solution] Route: IV; Rate: kas2 bolus; Site: right antecubital; 02:46 Drug: Albuterol-Ipratropium 1 neb [ipratropium-albuterol 0.5 mg-3 mg(2.5 mg base)/3 mL [facility] nebulization soln (1 neb)] Route: Nebulizer; 03:03 Drug: Nitro-Bid 0.5 inches [Nitro-Bid 2 % transdermal ointment (0.5 inches)] Route: kas2 Transdermal; Site: right upper arm; 03:03 Drug: Furosemide 60 mg [furosemide 10 mg/mL injection solution (6 mL)] Route: IVP; [facility] Site: right antecubital; 03:08 Drug: Albuterol-Ipratropium 1 neb [ipratropium-albuterol 0.5 mg-3 mg(2.5 mg base)/3 mL [facility] nebulization soln (1 neb)] Route: Nebulizer; 03:34 Drug: levofloxacin 500 mg [levofloxacin 500 mg/100 mL in 5 % dextrose intravenous [facility] piggyback] Route: IVPB; Infused Over: 60 mins; Site: right antecubital; 07:47 Follow up: IV Status: Completed infusion pml 04:32 Drug: vancomycin (loading dose for pt. wt. 60-69kg) 1500 mg [vancomycin 500 mg [facility] intravenous solution] Route: IVPB; Site: right antecubital; 07:47 Follow up: IV Status: Completed infusion pml Signatures: Dispatcher [employer] Shannan Underwood RN RN daq Hollis, Jacob [facility] Annie Ibrahim RN RN pml Schiff, Craig, DO DO cs11 Winnie Pickens, Sh[facility] jlm [place], Reg Reg hs2 Charo Dee RN RN [facility] The chart was reviewed and I authenticate all verbal orders and agree with the evaluation and treatment provided.Corrections: (The following items were deleted from the chart) 02:20 02:15 Albuterol-Ipratropium 3 ml Inhalation once ordered. [facility]6 Attachments: 04:05 [facility] Payment Agreement hs2 MTDD
--- NOTE | 2016-07-01 07:49 | EDDOCDS ---
Nurse's Notes [facility] Name: Jennifer Gooden Age: 70 yrs Sex: Female : 1945 Arrival Date: 07/01/2016 Time: 01:49 Bed 3 Private MD: Diagnosis: Respiratory failure, unspecified with hypercapnia;Pneumonia in diseases classified elsewhere-possible Presentation: 07/01 01:52 Presenting complaint: EMS states: Staff stated patient had shortness of breath about an kas2 hour ago. Put patient on 5L lubricator granulator and Sp02 98%. Breath sounds diminished and very tight as per EMS. Denies chest pain. Adult Sepsis Screening: The patient does not have new or worsening altered mentation. Patient has a respiratory rate of greater than or equal to 22 (1 point). Systolic blood pressure is greater than 100. Patient has a qSOFA score of 0- Negative Sepsis Screen. Suicide/Homicide risk assessment- the patient denies having any suicidal and/or homicidal ideations and does not present with any other emotional, behavioral or mental health complaints. Status: Patient is not a lubrication equipment servicer or dependent. Transition of care: patient was received from [facility]. 01:52 Acuity: VENITA Level 2 [facility] 01:52 Method Of Arrival: Ambulance [facility] Triage Assessment: 02:11 General: Appears distressed, ill, well nourished, well groomed, Behavior is anxious, kas2 cooperative. Pain: Denies pain. Neurological: Level of Consciousness is awake, alert, Oriented to person, place, time. Cardiovascular: Capillary refill < 3 seconds Heart tones S1 S2 present Rhythm is sinus tachycardia No ectopy. Chest pain is denied. Respiratory: Onset: The symptoms/episode began/occurred just prior to arrival, Airway is patent Respiratory effort is labored, with nasal flaring, Respiratory pattern is tachypnea Breath sounds with crackles inspiratory expiratory in left posterior lower lobe and right posterior lower lobe Breath sounds with wheezes inspiratory expiratory bilaterally. Derm: Skin is intact, Skin is moist, Skin is pale, Skin temperature is warm. Historical: - Allergies: no known allergies; - Home Meds: 1. Cardizem CD 240 mg Oral cp24 1 cap once daily 2. Xarelto 20 mg oral tab 1 tab once daily 3. vit D3-folic [id number] 2,000-800-0.32 unit-mcg-mg oral tab 4. Milk of Magnesia Oral once daily 2400mg/10ml 5. tubersol 6. aspirin 81 mg Oral tab 1 tab once daily 7. Colace 100 mg oral cap 1 cap once daily 8. Cymbalta 60 mg Oral cpDR 1 cap once daily 9. famotidine 20 mg Oral tab 1 tab 2 times per day 10. lisinopril 5 mg Oral tab 1 tab once daily 11. Singulair 10 mg Oral tab 1 tab once daily 12. Crestor 10 mg Oral tab 1 tab once daily 13. sennosides 8.6 mg oral cap 2 caps once daily 14. vit d12 daily 71304 units 15. Albuterol Nebulizer - PMHx: Anemia; type 2 diabetes; vit d deficiency; hyperlipidemia; Hypertension; angina pectoris; Atrial Fib; CHF; GERD; Constipation, Chronic; Hematuria; chronic respiratory failure; - PSHx: Cesearean Section; Tubal ligation; Knee surgery- Right; Appendectomy; Tonsillectomy; - Social history: Smoking status: Patient states former smoker of tobacco. No barriers to communication noted, The patient speaks fluent Swazi. - Family history: Not pertinent. - : The pt / caregiver states he / she is on anticoagulants: Xarelto Home medication list is obtained from the facility MAR. - Exposure Risk Screening:: None identified. Screenin:26 Screening information is obtained from the patient. Fall risk: No risks identified. kas2 Assistance ADL's: requires no assistance with activities of daily living. Abuse/DV Screen: The patient / caregiver reports he/she is: not in a situation that causes fear, pain or injury. Nutritional screening: No deficits noted. Advance Directives: Currently, there is no health care proxy. There is no active DNR order. There is no living will. There is no Power of Customer Resource Specialist. home support is adequate. Assessment: 02:07 General: Appears distressed, ill, well nourished, well groomed, Behavior is drowsy. kas2 Pain: Denies pain. Neurological: Level of Consciousness is awake, alert, Oriented to person, place, time. Cardiovascular: Capillary refill < 3 seconds Heart tones S1 S2 present Rhythm is sinus tachycardia No ectopy. Chest pain is denied. Respiratory: Airway is patent Respiratory effort is labored, with nasal flaring, Respiratory pattern is tachypnea Breath sounds with crackles inspiratory expiratory in left posterior lower lobe and right posterior lower lobe Breath sounds with wheezes inspiratory expiratory bilaterally. Derm: Skin is intact, Skin is moist, Skin is pale, Skin temperature is warm. 03:01 General: Appears in no apparent distress, comfortable, Behavior is appropriate for age, kas2 cooperative. Pain: Denies pain. Neurological: Level of Consciousness is awake, alert, Oriented to person, place, time. Cardiovascular: Rhythm is sinus tachycardia No ectopy. Respiratory: Airway is patent Respiratory effort is even, unlabored, Respiratory pattern is regular, symmetrical. Derm: Skin is intact, Skin is moist, Skin is pale, Skin temperature is warm. 04:05 General: Appears in no apparent distress, comfortable, Behavior is appropriate for age, kas2 cooperative. Pain: Denies pain. Neurological: Level of Consciousness is awake, alert, Oriented to person, place, time. Cardiovascular: Rhythm is sinus tachycardia No ectopy. Respiratory: Airway is patent Respiratory effort is even, unlabored, Respiratory pattern is regular, symmetrical. Derm: Skin is intact, Skin is moist, Skin is pale, Skin temperature is warm. 04:45 General: Patient gone to CT scan via stretcher with RN and tech.. kas2 05:10 General: Patient back from CT scan via stretcher with RN. Resettled in bed. Hospitalist [facility] resident in assessing patient at this time.. 05:47 General: Appears in no apparent distress, comfortable, Behavior is appropriate for age, kas2 cooperative. Pain: Denies pain. Neurological: Level of Consciousness is awake, alert, Oriented to person, place, time. Respiratory: Airway is patent Respiratory effort is even, unlabored, Respiratory pattern is regular, symmetrical. Derm: Skin is intact, Skin is moist, Skin is pink, warm & dry. Skin temperature is warm. 05:47 Cardiovascular: Rhythm is sinus tachycardia with PACs. kas2 06:41 General: Appears in no apparent distress, comfortable, Behavior is appropriate for age, kas2 cooperative. Pain: Denies pain. Neurological: Level of Consciousness is awake, alert, Oriented to person, place, time. Cardiovascular: Rhythm is sinus tachycardia No ectopy. Chest pain is denied. Respiratory: Airway is patent Respiratory effort is even, unlabored, Respiratory pattern is regular, symmetrical, Breath sounds with crackles bilaterally. in left posterior lower lobe and right posterior lower lobe. Derm: Skin is intact, Skin is dry, Skin is pink, warm & dry. Skin temperature is warm. 07:02 General: Appears in no apparent distress, comfortable, Behavior is appropriate for age, pml cooperative. Pain: Denies pain. Neurological: Level of Consciousness is awake, alert, Oriented to person, place, time. Cardiovascular: Capillary refill < 3 seconds Rhythm is atrial fibrillation with rapid ventricular response. Respiratory: Airway is patent Respiratory effort is bipap in place. GI: Abdomen is non- distended obese. Derm: Skin is pink, warm & dry. 07:43 General: Appears in no apparent distress, comfortable, Behavior is appropriate for age, pml cooperative. Pain: Denies pain. Neurological: Level of Consciousness is awake, alert, Oriented to person, place, time. Cardiovascular: Capillary refill < 3 seconds Rhythm is atrial fibrillation. Respiratory: Airway is patent Respiratory effort is even, unlabored. Derm: Skin is pink, warm & dry. Vital Signs: 01:56 BP 162 / 73 (auto/); kas2 01:56 Pulse Ox 97% ; kas2 02:00 BP 156 / 77 (auto/); kas2 02:00 Pulse 122 MON; Pulse Ox 98% ; kas2 02:06 BP 125 / 63 (auto/); kas2 02:06 Pulse 125 MON; Pulse Ox 99% ; [facility] 02:11 Pulse Ox 97% 4 lpm ; jh6 02:11 BP 198 / 87; Pulse 127; Resp 32; Pulse Ox 100% on Venturi mask; Weight 82.33 kg; Height [facility] 5 ft. 5 in. (165.10 cm); Pain 0/10; 02:21 BP 127 / 64 (auto/); kas2 02:21 Pulse 131 MON; Pulse Ox 96% ; kas2 02:36 BP 140 / 71 (auto/); kas2 02:36 Pulse 129 MON; Pulse Ox 95% ; kas2 02:51 BP 121 / 56 (auto/); kas2 02:51 Pulse 123 MON; Pulse Ox 98% ; kas2 03:05 Resp 28; Temp 98.9(TE); kas2 03:06 BP 140 / 69 (auto/); kas2 03:06 Pulse 127 MON; Pulse Ox 98% ; kas2 03:21 BP 137 / 62 (auto/); kas2 03:21 Pulse 129 MON; Pulse Ox 98% ; kas2 03:36 BP 159 / 88 (auto/); kas2 03:36 Pulse 130 MON; Pulse Ox 96% ; kas2 03:51 BP 116 / 72 (auto/); kas2 03:51 Pulse 130 MON; Pulse Ox 96% ; kas2 04:21 BP 158 / 71 (auto/); kas2 04:21 Pulse 138 MON; Pulse Ox 94% ; kas2 04:36 BP 145 / 63 (auto/); kas2 04:36 Pulse 131 MON; Pulse Ox 95% ; kas2 05:09 Temp 97.9(TE); Pulse Ox 99% on BiPAP; Pain 0/10; kas2 05:20 BP 128 / 74 (auto/); kas2 05:20 Pulse 130 MON; Pulse Ox 92% ; kas2 05:35 BP 154 / 92 (auto/); kas2 05:35 Pulse 128 MON; Pulse Ox 99% ; kas2 05:51 BP 162 / 70 (auto/); kas2 05:51 Pulse 127 MON; Pulse Ox 99% ; kas2 06:06 BP 191 / 77 (auto/); kas2 06:06 Pulse 124 MON; Pulse Ox 96% ; kas2 06:21 BP 167 / 71 (auto/); kas2 06:21 Pulse 128 MON; Pulse Ox 97% ; kas2 06:35 BP 142 / 55 (auto/); kas2 06:35 Pulse 128 MON; Pulse Ox 97% ; kas2 06:41 Resp 20; Temp 98.6(TE); Pain 0/10; kas2 06:51 Pulse 127 MON; Pulse Ox 98% ; pml 06:51 BP 154 / 67 (auto/); pml 07:05 Pulse 129 MON; Pulse Ox 99% ; pml 07:05 BP 136 / 67 (auto/); pml 07:20 Pulse 127 MON; Pulse Ox 99% ; pml 07:20 BP 131 / 80 (auto/); pml 07:35 Pulse 129 MON; pml 07:35 BP 119 / 69 (auto/); pml 07:43 BP 119 / 69; Pulse 124; Resp 18; Temp 98.3; Pulse Ox 97% on R/A; pml 02:11 Body Mass Index 30.20 (82.33 kg, 165.10 cm) [facility] Vitals: 02:11 Log In Time N/A - ambulance arrival. [facility] ED Course: 01:50 Charo Dee RN is Primary Nurse. [facility] 01:50 Patient visited by Winnie Pickens Pile Fabric Knitter. [facility] 01:50 Patient moved to [facility] 01:55 Triage Initiated kas2 01:55 secured entrance monitor on. Pulse ox on. NIBP on. kas2 02:08 Vadim Leigh DO is Attending Physician. cs11 02:08 Patient visited by Vadim Leigh DO. cs11 02:26 Inserted saline lock: 20 gauge in right antecubital area and blood collected. The kas2 patient tolerated the procedure well. No procedures done that require assistance. 02:26 EKG done. (by ED staff). Reviewed by Vadim Leigh DO. mdr 02:27 Patient visited by Celio Patrick PCA. mdr 02:27 Patient visited by Charo Dee RN. kas2 02:31 -Arterial Blood Gas Sent. jh6 02:43 BLOOD CULTURES Sent. kas2 02:44 Patient visited by Charo Dee RN. kas2 02:44 BIPAP: Inspiratory Pressure: 14, Expiratory Pressure: 8, FiO2: 50%. kas2 03:02 Urine collected. Specimen obtained from Harry. kas2 03:02 Harry cath inserted 16 Fr. Balloon inflated. To gravity drainage. Urine specimen kas2 collected. returned cloudy urine. Patient tolerated well. 03:03 Patient visited by Charo Dee RN. kas2 03:04 Patient visited by Charo Dee RN. kas2 03:35 Patient visited by Charo Dee RN. kas2 03:37 Phong Becker DO is Hospitalizing Provider. cs11 04:05 [facility] Payment Agreement was scanned into [employer] and attached to record. hs2 04:07 Patient name changed from Jennifer\S\\S\Ortmann\S\ to Jennifer\S\ \S\Ortmann. EDMS 04:34 Patient visited by Charo Dee RN. kas2 05:11 Patient visited by Charo Dee RN. kas2 05:48 Patient visited by Charo Dee RN. kas2 05:48 URINE CULTURE Sent. kas2 05:48 URINALYSIS Sent. kas2 06:12 CT Chest Angio R/O PE Returned. EDMS 06:42 Patient visited by Charo Dee RN. kas2 06:47 Patient visited by Charo Dee RN. [facility] 07:05 The patient / caregiver is instructed regarding the plan of care and ED course. Patient pml has correct armband on for positive identification. Bed in low position. Call light in reach. 07:06 Patient visited by Annie Ibrahim RN. pml Administered Medications: 02:20 CANCELLED (Duplicate Order): Albuterol-Ipratropium 3 ml Inhalation once [facility] 02:20 Drug: Albuterol-Ipratropium 1 neb [ipratropium-albuterol 0.5 mg-3 mg(2.5 mg base)/3 mL 6 nebulization soln (1 neb)] Route: Nebulizer; 02:42 Drug: Dexamethasone 12 mg [dexamethasone 4 mg/mL injection solution] Route: IV; Rate: kas2 bolus; Site: right antecubital; 02:46 Drug: Albuterol-Ipratropium 1 neb [ipratropium-albuterol 0.5 mg-3 mg(2.5 mg base)/3 mL 6 nebulization soln (1 neb)] Route: Nebulizer; 03:03 Drug: Nitro-Bid 0.5 inches [Nitro-Bid 2 % transdermal ointment (0.5 inches)] Route: [facility] Transdermal; Site: right upper arm; 03:03 Drug: Furosemide 60 mg [furosemide 10 mg/mL injection solution (6 mL)] Route: IVP; [facility] Site: right antecubital; 03:08 Drug: Albuterol-Ipratropium 1 neb [ipratropium-albuterol 0.5 mg-3 mg(2.5 mg base)/3 mL 6 nebulization soln (1 neb)] Route: Nebulizer; 03:34 Drug: levofloxacin 500 mg [levofloxacin 500 mg/100 mL in 5 % dextrose intravenous [facility] piggyback] Route: IVPB; Infused Over: 60 mins; Site: right antecubital; 07:47 Follow up: IV Status: Completed infusion pml 04:32 Drug: vancomycin (loading dose for pt. wt. 60-69kg) 1500 mg [vancomycin 500 mg [facility] intravenous solution] Route: IVPB; Site: right antecubital; 07:47 Follow up: IV Status: Completed infusion pml Intake: 06:40 IV: 350.00ml; Total: 350.00ml. kas2 Output: 06:40 Urine: 900.00ml (Harry); Total: 900.00ml. kas2 RT: 01:50 Respiratory: Airway is patent Respiratory effort is labored, Use of accessory muscles jh6 noted. Respiratory pattern is tachypnea Breath sounds are coarse in right upper lobe, left upper lobe, right middle lobe, left lower lobe and right lower lobe Breath sounds are diminished in right upper lobe, left upper lobe, right middle lobe, left lower lobe and right lower lobe Breath sounds with wheezes in right upper lobe, left upper lobe, right middle lobe, left lower lobe and right lower lobe at expiration. 02:11 O2 via nasal cannula \T\ 4L/min. 6 02:20 Initial Med Neb Given as ordered Patient was instructed and evaluated on procedure jh6 Patient tolerated procedure well without adverse effect. Respiratory: Airway is patent Respiratory effort is even, labored, Use of accessory muscles noted. Respiratory pattern is tachypnea Breath sounds are coarse in right upper lobe, left upper lobe, right middle lobe, left lower lobe and right lower lobe Breath sounds are diminished in right upper lobe, left upper lobe, right middle lobe, left lower lobe and right lower lobe Breath sounds with wheezes in right upper lobe, left upper lobe, right middle lobe, left lower lobe and right lower lobe at expiration. 02:31 ABG's drawn from right radial artery pressure held for 5 minutes no bleeding noted jh6 pressure bandage applied specimen sent pt. tolerated well. Respiratory: Airway is patent Respiratory effort is even, labored, Use of accessory muscles noted. Respiratory pattern is regular symmetrical, Breath sounds are coarse in right upper lobe, left upper lobe, right middle lobe, left lower lobe and right lower lobe Breath sounds are diminished in right upper lobe, left upper lobe, right middle lobe, left lower lobe and right lower lobe Breath sounds with wheezes in right upper lobe, left upper lobe, right middle lobe, left lower lobe and right lower lobe at expiration. 02:44 BIPAP: Inspiratory Pressure: 14, Expiratory Pressure: 8, Backup Rate: 10, FiO2: 50%, jh6 Full face fask. 02:49 Subsequent Med Neb Given as ordered Patient was reinforced on procedure Patient jh6 tolerated procedure well without adverse effect. Respiratory: Airway is patent Respiratory effort is even, unlabored, Respiratory pattern is regular symmetrical, Breath sounds are coarse in right upper lobe, left upper lobe, right middle lobe, left lower lobe and right lower lobe Breath sounds are diminished in right upper lobe, left upper lobe, right middle lobe, left lower lobe and right lower lobe Breath sounds with wheezes in right upper lobe, left upper lobe, right middle lobe, left lower lobe and right lower lobe at expiration. 03:08 Subsequent Med Neb Given as ordered Patient was reinforced on procedure Patient jh6 tolerated procedure well without adverse effect. Respiratory: Airway is patent Respiratory effort is even, unlabored, Respiratory pattern is regular symmetrical, Breath sounds are coarse in right upper lobe and right middle lobe Breath sounds with crackles in left upper lobe Breath sounds are diminished in right upper lobe, left upper lobe, right middle lobe, left lower lobe and right lower lobe. 03:16 Respiratory: Breath sounds are diminished in right upper lobe, left upper lobe, right jh6 middle lobe, left lower lobe and right lower lobe Breath sounds with wheezes in right upper lobe, left upper lobe, right middle lobe, left lower lobe and right lower lobe at expiration. Order Results: Lab Order: -Arterial Blood Gas; SPEC'M 07/01/16 02:22 Test: ABG pH (ARTERIAL); Value: 7.263; Range: 7.350-7.450; Abnormal: Below low normal; Units: UNITS; Status: F Test: ABG PARTIAL PRESSURE CO2; Value: 91.9; Range: 35.0-45.0; Abnormal: Above upper panic limits; Units: mmHg; Status: F Test: ABG PARTIAL PRESSURE O2; Value: 143.5; Range: 75.0-100.0; Abnormal: Above high normal; Units: mmHg; Status: F Test: ABG TOTAL CO2; Value: 43.4; Range: 23.0-31.0; Abnormal: Above high normal; Units: MEQ/L; Status: F Test: ABG HCO3; Value: 40.6; Range: 22.0-26.0; Abnormal: Above high normal; Units: MEQ/L; Status: F Test: ABG BASE EXCESS; Value: 11.1; Range: -2.0-2.0; Abnormal: Above high normal; Status: F Test: ABG STANDARD HCO3; Value: 34.9; Range: 22.0-26.0; Abnormal: Above high normal; Units: MEQ/L; Status: F Test: ABG O2 SATURATION; Value: 98.8; Range: 95.0-99.0; Units: %; Status: F Test: ABG DEVICE; Value: NASAL ERNESTINE; Status: F Lab Order: CBC with Diff; SPEC'M 07/01/16 02:02 Test: WHITE BLOOD COUNT; Value: 10.4; Range: 4.0-10.0; Abnormal: Above high normal; Units: K/mm3; Status: F Test: RED BLOOD COUNT; Value: 3.20; Range: 4.00-5.40; Abnormal: Below low normal; Units: M/mm3; Status: F Test: HEMOGLOBIN; Value: 9.3; Range: 12.0-16.0; Abnormal: Below low normal; Units: g/dl; Status: F Test: HEMATOCRIT; Value: 29.8; Range: 36.0-47.0; Abnormal: Below low normal; Units: %; Status: F Test: MEAN CORPUSCULAR VOLUME; Value: 93.1; Range: 80.0-96.0; Units: fl; Status: F Test: MEAN CORPUSCULAR HEMOGLOBIN; Value: 29.0; Range: 27.0-33.0; Units: pg; Status: F Test: MEAN CORPUSCULAR HGB CONC; Value: 31.1; Range: 32.0-36.5; Abnormal: Below low normal; Units: g/dl; Status: F Test: RED CELL DISTRIBUTION WIDTH; Value: 17.9; Range: 11.5-14.5; Abnormal: Above high normal; Units: %; Status: F Test: PLATELET COUNT, AUTOMATED; Value: 191; Range: 150-450; Units: k/mm3; Status: F Test: NEUTROPHILS %; Value: 81.4; Range: 36.0-66.0; Abnormal: Above high normal; Units: %; Status: F Test: LYMPH %; Value: 11.2; Range: 24.0-44.0; Abnormal: Below low normal; Units: %; Status: F Test: MONO %; Value: 5.0; Range: 0.0-5.0; Units: %; Status: F Test: EOS %; Value: 0.1; Range: 0.0-3.0; Units: %; Status: F Test: BASO %; Value: 0.3; Range: 0.0-1.0; Units: %; Status: F Test: LARGE UNSTAINED CELL %; Value: 2.0; Range: 0.0-4.0; Units: %; Status: F Test: NEUTROPHILS #; Value: 8.5; Range: 1.8-7.7; Abnormal: Above high normal; Units: K/mm3; Status: F Test: LYMPH #; Value: 1.2; Range: 1.5-4.5; Abnormal: Below low normal; Units: K/mm3; Status: F Test: MONO #; Value: 0.5; Range: 0.0-0.8; Units: K/mm3; Status: F Test: EOS #; Value: 0.0; Range: 0.0-0.50; Units: K/mm3; Status: F Test: BASO #; Value: 0.0; Range: 0.0-0.2; Units: K/mm3; Status: F Test: LARGE UNSTAINED CELL #; Value: 0.2; Range: 0.0-0.4; Units: K/mm3; Status: F Lab Order: MED Profile; SPEC'M 07/01/16 02:02 Test: GLUCOSE, FASTING; Value: 174; Range: 83-110; Abnormal: Above high normal; Units: MG/DL; Status: F Test: BLOOD UREA NITROGEN; Value: 22; Range: 7-18; Abnormal: Above high normal; Units: MG/DL; Status: F Test: CREATININE FOR GFR; Value: 0.84; Range: 0.55-1.02; Units: MG/DL; Status: F Test: GLOMERULAR FILTRATION RATE; Value: > 60.0; Range: >39; Status: F Test: SODIUM LEVEL; Value: 142; Range: 136-145; Units: MEQ/L; Status: F Test: POTASSIUM SERUM; Value: 4.8; Range: 3.5-5.1; Units: MEQ/L; Status: F Test: CHLORIDE LEVEL; Value: 101; Range: 98-107; Units: MEQ/L; Status: F Test: CARBON DIOXIDE LEVEL; Value: 38; Range: 21-32; Abnormal: Above high normal; Units: MEQ/L; Status: F Test: ANION GAP; Value: 3; Range: 8-16; Abnormal: Below low normal; Units: MEQ/L; Status: F Test: CALCIUM LEVEL; Value: 8.5; Range: 8.8-10.2; Abnormal: Below low normal; Units: MG/DL; Status: F Test Note: ; Units are mL/min/1.73 m2 Chronic Kidney Disease Staging per NKF: Stage I & II GFR >=60 Normal to Mildly Decreased Stage III GFR 30-59 Moderately Decreased Stage IV GFR 15-29 Severely Decreased Stage V GFR <15 Very Little GFR Left ESRD GFR <15 on FAMILY PHYSICIAN Lab Order: BNP; 07/01/16 02:02 Test: BRAIN NATRIURETIC PEPTIDE; Value: 147; Range: <100; Abnormal: Above high normal; Units: PG/ML; Status: F Lab Order: Theophylline Level; 07/01/16 02:02 Test: THEOPHYLLINE LEVEL; Value: < 2.0; Range: 10.0-20.0; Abnormal: Below low normal; Units: UG/ML; Status: F Lab Order: Lactic Acid (Whalen tube on ice); 07/01/16 02:02 Test: LACTIC ACID SEPSIS PROTOCOL; Value: 1.1; Range: 0.4-2.0; Units: MMOL/L; Status: F Lab Order: RBC MORPH PROF NO CHARGE; 07/01/16 02:02 Test: PLATELET ESTIMATE; Range: NORMAL; Status: I Test: ANISOCYTOSIS; Value: 2+; Status: F Test: PLATELET ESTIMATE; Value: NORMAL; Range: NORMAL; Status: F Lab Order: VENOUS BLOOD GAS; 07/01/16 07:26 Test: VENOUS PH; Value: 7.338; Range: 7.330-7.430; Units: UNITS; Status: F Test: VENOUS PARTIAL PRESSURE CO2; Value: 62.7; Range: 38.0-50.0; Abnormal: Above high normal; Units: mmHg; Status: F Test: VENOUS PARTIAL PRESSURE O2; Value: 135.8; Range: 30.0-50.0; Abnormal: Above high normal; Units: mmHg; Status: F Test: VENOUS TOTAL CO2; Value: 34.8; Range: 24.0-28.0; Abnormal: Above high normal; Units: MEQ/L; Status: F Test: VENOUS HCO3; Value: 32.9; Range: 23.0-27.0; Abnormal: Above high normal; Units: MEQ/L; Status: F Test: VENOUS BASE EXCESS; Value: 5.8; Range: -2.0-2.0; Abnormal: Above high normal; Status: F Test: VENOUS STANDARD HCO3; Value: 29.7; Units: MEQ/L; Status: F Test: VENOUS O2 SATURATION; Value: 98.8; Range: 60.0-80.0; Abnormal: Above high normal; Units: %; Status: F Radiology Order: CT Chest Angio R/O PE Test: CT Chest Angio R/O PE REASON FOR EXAMINATION: Shortness of Breath; ; CLINICAL HISTORY: Dyspnea, exclude PE.; TECHNIQUE: Multiple incremental axial, coronal and oblique images are obtained from the thoracic inle; t to the upper abdomen. Intravenous contrast material was administered as per pulmonary embolism prot; ocol.; COMMENTS:; Moderate centrilobular pulmonary emphysema.; Diffuse bilateral groundglass densities of the lungs more prominent in the right upper lobe, left upp; er lobe and bilateral lower lobes.; There is excellent opacification of pulmonary arterial system without evidence for pulmonary embolism; . Aorta is of normal caliber without evidence for dissection or aneurysm.; There is no evidence of pleural or parenchymal mass. There are no pleural effusions. There is no evid; ence of hilar or mediastinal lymphadenopathy. The heart and great vessels are within normal limits.; Images of the upper abdomen demonstrate no evidence of adrenal mass.; The bony structures are free of lytic or blastic lesions. Multilevel degenerative changes are seen in; volving the visualized thoracolumbar spine.; Scattered calcifications are seen involving the aorta and major branches compatible with atherosclero; sis.; IMPRESSION:; No evidence for pulmonary embolism.; Multifocal bronchopneumonia.; Moderate centrilobular pulmonary emphysema.; Thank you for your kind referral of this patient.; ; Outcome: 03:38 Decision to Hospitalize by Provider. cs11 05:51 CT Study completed. kas2 05:51 Discharge Assessment: patient administered narcotics - no. kas2 07:05 The following High Risk Discharge criteria are identified: None. Admitted to ICU pml accompanied by nurse, accompanied by tech, via stretcher, with oxygen, on monitor, with chart. Condition: good Condition: stable. Admission hand-off: Report called to TRAVEL WRITER. Property :Personal belongings accompany Pt. 07:48 Patient left the ED. pml Signatures: Dispatcher [employer] Louie Qureshi jh6 Annie Ibrahim,RN RN pml Vadim Leigh, DO cs11 Winnie Pickens, [employer] Knitter Unit jlm Celio Patrick, CLINICAL DIETITIAN CLINICAL DIETITIAN [facility] [place], Reg Reg hs2 Charo DeeRN RN kas2 Corrections: (The following items were deleted from the chart) 06:47 05:47 Cardiovascular: Rhythm is sinus tachycardia No ectopy. kas2 kas2 07:33 07:02 Cardiovascular: Capillary refill < 3 seconds Rhythm is sinus tachycardia No pml ectopy. pml MTDD
[2016-07-01] MEDS ORDERED: methylPREDNISolone INJ 125 MG/2 ML VIAL (J2930) IV SCH (08:00)
[2016-07-01] MEDS: BUDESONIDE 0.5 MG/2 ML INHALATION SUSPENSION INH SCH ×2 (08:17→19:46)
[2016-07-01] MEDS: IPRATROPIUM 0.5MG/ALBUTEROL 2.5MG INH SOL UD 3ML (DUONEB)(J7620) NEB SCH ×4 (08:17→19:46)
--- NOTE | 2016-07-01 08:34 | REP ---
Portable chest, 02:34 a.m., single AP view, patient sitting: Comparison is 06/30/2016. There are new bilateral upper lobe infiltrates. The rapid appearance of these filtrates there is suggestive of aspiration, however, this should be correlated clinically. The lower lung ayala are clear and unchanged. Chronic effacement of the left costophrenic angle is again noted. Sternotomy wires are again noted. Cardiac size normal. Impression: New bilateral upper lobe infiltrates, not present on 06/30/2016. Aspiration is a primary diagnostic consideration. Signed by Froilan Johnston MD 07/01/2016 08:25 A
[2016-07-01] MEDS ORDERED: VANCOMYCIN HCL 1,000 MG, VIAL MATE ADAPTER 1 EACH in D5W 250 ML IV ONE (09:00)
[2016-07-01] MEDS: MIRALAX *UNIT DOSE* 17GM PACKET PO SCH ×2 (09:47→20:54)
[2016-07-01] MEDS: DULoxetine 30 MG CAP (CYMBALTA) PO SCH (09:47)
[2016-07-01] MEDS: VITAMIN D 1,000 INTERNATIONAL UNITS TABLET PO SCH (09:47)
[2016-07-01] MEDS: SENNA 8.6 MG TAB (SENOKOT) PO SCH (09:47)
[2016-07-01] MEDS: FAMOTIDINE 20 MG TAB PO SCH ×2 (09:47→21:09)
[2016-07-01] MEDS: DOCUSATE SODIUM 100 MG CAP PO SCH ×2 (09:47→21:07)
[2016-07-01] MEDS: ASPIRIN 81 MG ENTERIC TAB PO SCH (09:47)
[2016-07-01] MEDS: BISACODYL 10 MG SUPP PR SCH (09:48)
--- NOTE | 2016-07-01 09:53 | PHACANCOPD ---
PHARMACY VANCOMYCIN DOSING Pt Demographics Demographics Patient Age:70 , Weight:82.330 , Gender: female Adjusted Body Weight Date: 07/01/16, Adjusted Body Weight: [67.1] Kg Events Past 24 Hours Events Past 24 Hours: YES: Elevation in WBC, Pending Diagnostics Vancomycin Vancomycin indication: acute hypercarbic respiratory failure Vancomycin Target Ranges: 15-20 mcg/ml Vancomycin Load Y/N: Yes Load Dose Date Time Vancomycin Load Dose: 1g Date: 07/01/16 Time: 0900 Vancomycin Dose Date: 07/01/16. Current Vancomycin Dose: [750mg IV Q12H] Intermittent Dosing?: No Labs Labs Item Value Date Time White Blood Count 10.4 K/mm3 H 07/01/16 0202 Blood Urea Nitrogen 22 MG/DL H 07/01/16 0202 Creatinine 0.84 MG/DL 07/01/16 0202 C-Reactive Protein, Quantitative 1.41 MG/DL H 07/01/16 0726 Micro Microbiology 07/01/16 Blood Culture, Received Pending 07/01/16 Blood Culture, Received Pending Creatinine Clearance Date:07/01/16. Estimated Creatinine Clearance: [~60ml/min]. Pending Labs Vancomycin trough scheduled 07/03/16 @ 0800, prior to the 5th dose Assessment and Plan Maintaining Current Dose?: Yes Reason for dose change: No Dose Change Pharmacist Note Pharmacist Note Date: 07/01/16. Pharmacist note: Day #1 empiric levaquin/vancomycin initiated with a 1g loading dose @0900, followed by a maintenance regimen of 750mg IV Q12H for the treatment of acute hypercarbic respiratory failure - aiming for a goal trough of 15-20 mcg/ml. The patient has a PMH of chronic respiratory failure and CHF, with no previous hx of MRSA or vanco use here at [facility]. WBC and CRP are currently elevated, and patient is afebrile. Blood cultures are currently pending. A vancomycin trough has been scheduled 07/03/16 @0800, prior to the 5th dose. We will continue to monitor and make adjustments accordingly. DAVIS WOOD PHARMACY Jul 01, 2016 09:53
[2016-07-01] MEDS: MEROPENEM INJ 2 GM in NS 100 ML IV SCH ×2 (11:08→18:07)
[2016-07-01] MEDS: HumaLOG INSULIN (NovoLOG) PER UNIT SC SCH ×3 (12:00→20:42)
[2016-07-01] MEDS ORDERED: GLUCAGON FOR INJ 1 MG VIAL (J1610) SC PRN (13:30)
[2016-07-01] MEDS ORDERED: GLUCOSE 4 GM CHEW TABLET PO PRN (13:30)
[2016-07-01] MEDS ORDERED: DEXTROSE 50% 50 ML SYRINGE IV PRN (13:30)
--- NOTE | 2016-07-01 14:06 | CCN ---
DATE: 07/01/2016 NOTE: I was asked by Dr. Becker to emergently evaluate Ms. Gooden for acute on chronic respiratory failure requiring noninvasive mechanical ventilation. Ms. Gooden is a 70-year-old white female whose past medical history is pertinent for diabetes mellitus, hypertension, atrial fibrillation, congestive heart failure (CHF), coronary artery disease (CAD), and chronic obstructive pulmonary disease (COPD), who presented to the emergency department with a 2 day history of increased shortness of breath and generally not feeling well. When she presented, she had also complained of sweats but was unaware of any fever or chills. In the emergency department, she was found to have acute on chronic respiratory failure with a pH of 7.26 and a pCO2 of 92. As part of her evaluation, she had a chest CT pulmonary angiogram which had shown reticular type infiltrates in both upper lobes and, to some extent, the lower lobes. She also had evidence of emphysema. It was felt that she had a pneumonia and she was started on vancomycin and Levaquin, as well as noninvasive mechanical ventilation. On my arrival, she is responding to some questions. She notes overall she is feeling better. She denies any significant cough. She has had no sputum production. She is not aware of any ill contacts. No wheezing. No chest pain or pressure. No lower extremity edema. Ms. Gooden's history is also notable for an admission from 05/21/2016 through 06/16/2016, with acute on chronic respiratory failure requiring mechanical ventilation. She is a resident of [facility]. ALLERGIES: MORPHINE and SULFA ANTIBIOTICS. MEDICATIONS ON ADMISSION: - albuterol nebulization every 2 hours as needed - DuoNeb four times a day - aspirin 81 mg by mouth daily - Dulcolax suppository 10 mg daily - budesonide nebulization 0.5 mg twice a day - vitamin D 2000 units by mouth daily - Cardizem 240 mg by mouth daily - Colace 100 mg by mouth twice a day - duloxetine 60 mg by mouth daily - vitamin D 50,000 units by mouth weekly - Pepcid 20 mg by mouth twice a day - lisinopril 5 mg by mouth nightly - Milk of Magnesia 30 ml by mouth daily as needed - Singulair 10 mg by mouth nightly - Zofran 4 mg by mouth every 8 hours as needed - MiraLax 17 grams by mouth twice a day - Xarelto 20 mg by mouth daily - Crestor 10 mg by mouth daily - Senna one tablet by mouth daily - [place] Nasal [place] two puffs every 2 hours as needed - sodium phosphate/biphosphate enema daily as needed OBJECTIVE: PHYSICAL EXAMINATION: GENERAL: Initially, Ms. Gooden was lying in bed with a full face mask in place and synchronous with the ventilator. Later, she was on nasal cannula. VITAL SIGNS: Temperature 97.6, pulse 115, respiratory rate 18, blood pressure 119/66 with a mean arterial pressure (MAP) of 83. SpO2 97% on noninvasive mechanical ventilation 26/12 with a 0.5 bleed-in was 97%. Later on 5 liters by nasal cannula it was 93%. HEENT: Anicteric. Nares patent bilaterally, nasal cannula in place. Oropharynx clear, no lesions, Mallampati IV, upper dentures, edentulous on bottom. NECK: Supple, without jugular venous distention (JVD), thyromegaly, or masses, trachea is midline. LYMPHATICS: Without cervical or supraclavicular lymphadenopathy. CHEST: Increased anteroposterior (AP) diameters. LUNGS: Generalized mildly diminished air entry, faint end expiratory wheezes noted on tidal excursion. A few fine crackles at the right base. No significant rhonchi. Prolonged expiratory phase. She is using mild abdominal musculature on exhalation at times. She also used pursed lip breathing at times. CARDIOVASCULAR: Tachycardic, regular rhythm, normal S1, S2, no murmur, rub, or gallop appreciated. ABDOMEN: Positive bowel sounds, soft, nondistended, nontender, no hepatosplenomegaly or masses appreciated. EXTREMITIES: Without clubbing, cyanosis, or significant edema. Palpable pedal pulses bilaterally. LABORATORY DATA: CBC showed a hemoglobin of 9.3, hematocrit 29.8, platelet count 191,000, white blood cell count 10,400 with a differential of 81% neutrophils, 11% lymphocytes, and 5% monocytes. Chemistry showed sodium 142, potassium 4.8, chloride 101, bicarbonate 38, anion gap 3, BUN 22, creatinine 0.8, glucose 174, calcium 8.5, lactic acid 1.1, BNP 147, CRP 1.41. Initial arterial blood gas was 7.26/92/144 with a measured saturation of 99%. I am not certain on how much oxygen this was drawn on. Base excess was 11.1. A repeat arterial blood gas (ABG) after being on noninvasive mechanical ventilation, was 7.34/63/136 with a measured saturation of 99% and a base excess of 5.8. I reviewed her chest CT scan as well as the report. That CT showed normal appearing cardiac silhouette and pulmonary vascular shadows. No mediastinal or hilar lymphadenopathy. There were predominantly interstitial infiltrates and some ground glass opacities in the upper lobes and to some extent in the right lower lobe. The largest region of impact was the right upper lobe. There is also bilateral emphysematous changes. No pulmonary embolism. IMPRESSION: 1. Acute on chronic hypercapnic respiratory failure. I suspect the chronic portion is likely secondary to underlying chronic obstructive pulmonary disease (COPD). The acute portion appears to be secondary to a pneumonic process. 2. Pneumonia. Based on its appearance I would question whether this may be a viral pneumonia. She is in a residential where there have been several culture positive viral processes present. Differential would include a bacterial process. 3. Chronic obstructive pulmonary disease (COPD). 4. Coronary artery disease (CAD). 5. History of congestive heart failure (CHF). 6. Hypertension. 7. Atrial fibrillation. 8. Deep venous thrombosis (DVT) prophylaxis in place with sequential compression devices (SCDs) and thromboembolism deterrents (TEDs). She also is fully anticoagulated with Xarelto. 9. Infectious disease (ID). On Levaquin and vancomycin. 10. Gastrointestinal (GI) prophylaxis in place with Pepcid. RECOMMENDATIONS: 1. I feel she can discontinue the noninvasive mechanical ventilation at the present time. I would not be surprised to find that she has some level of hypoxemia. 2. I would decrease the amount of systemic corticosteroids. This appears to be a pneumonic process and not a chronic obstructive pulmonary disease (COPD) exacerbation. 3. I recommend obtaining a respiratory panel as we know several viruses have been prevalent in the residential. Even if it is culture positive for a viral process, agree with antibiotic coverage at least initially. 4. Sputum for gram stain and culture if possible. She is not currently expectorating. 5. In regards to her antibiotic coverage, she has been in the hospital recently and is in [facility] and so I would consider a healthcare-associated process and would change her current antibiotics appropriately. 6. I would continue her other outpatient medications as you are doing. The above recommendations were discussed with Dr. Howard. Critical care time 40 minutes, not including procedure time. DAELFO
[2016-07-01] MEDS: OSELTAMIVIR PHOSPHATE 75 MG CAP (TAMIFLU) PO SCH ×2 (15:26→21:08)
[2016-07-01] MEDS: RIVAROXABAN 20 MG TAB (XARELTO) PO SCH (15:26)
[2016-07-01 16:36] LABS: VENOUS BASE EXCESS 9.5 (-2.0-2.0); VENOUS PARTIAL PRESSURE CO2 66.2 mmHg (38.0-50.0); VENOUS PARTIAL PRESSURE O2 35.1 mmHg (30.0-50.0); VENOUS STANDARD HCO3 32.7 MEQ/L; VENOUS TOTAL CO2 38.5 MEQ/L (24.0-28.0)
--- NOTE | 2016-07-01 17:42 | IPN ---
DATE: 07/01/2016 Was on BiPAP in ICU. The patient was weaned off the BiPAP. The patient reported shortness of breath and cough, unable to cough up any phlegm. Denies any chest pain, pressure or discomfort. Denies any abdominal pain. Currently off BiPAP. VITAL SIGNS: Temperature 98, pulse 120, respirations 18, blood pressure 127/59, pulse oximetry 95% on 5 liters nasal cannula. LABORATORY: WBC 10.4, hemoglobin and hematocrit 9.3/29.8. Platelets 119. Chemistry: Sodium 142, potassium 4.8, chloride 101, bicarbonate 38, BUN 22, creatinine 0.84. Lactic acid 1.1. PHYSICAL EXAMINATION: GENERAL: Patient obese, alert, oriented times three. Weak. HEENT: Normocephalic, atraumatic. PULMONARY: Diminished breath sounds bilateral. Bilateral wheeze. Poor inspiratory effort. CARDIAC: Tachycardia. Irregular. S1, S2. ABDOMEN: Soft, nontender, positive bowel sounds. EXTREMITIES: No edema bilateral lower extremities. ASSESSMENT AND PLAN: This is a 70-year-old female patient with underlying medical history of anemia, type 2 diabetes, vitamin D deficiency, dyslipidemia, hypertension, angina, atrial fibrillation, congestive heart failure, gastroesophageal reflux disease (GERD), constipation, hematuria, chronic hypoxic respiratory failure, anxiety, chronic obstructive pulmonary disease (COPD) presents with two days of progressive worsening of breathing admitted for acute on chronic hypercarbic respiratory failure and hypoxic respiratory failure. Recent history of intubation. 1. Acute on chronic hypercarbic hypoxic respiratory failure. The patient is weaned off the BiPAP. Admitted to ICU. 02 supplementations. ABG repeated. Respiratory panel positive for influenza. Started on Tamiflu. Nebulizer treatments budesonide, Singulair, Solu-Medrol IV. Meropenem, vancomycin for possible healthcare associated bacterial pneumonia. CT scan appreciated. Pulmonology consulted. 2. Multifocal healthcare associated bacterial pneumonia. Follow cultures. Sputum cultures. Respiratory panel appreciated. Positive for influenza. Tamiflu started. Meropenem, vancomycin. Followup MRSA screening. 3. Acute COPD exacerbation. Continue steroids. O2 supplementation, weaned off BiPAP. Repeat ABGs. Continue antibiotics mentioned above. Nebulizer treatment. Solu-Medrol. Pulmicort. Singulair. Pulmonary consulted. 4. Hypertension. Continue lisinopril and diltiazem. Monitor blood pressure. 5. Atrial fibrillation. The patient on Xarelto. Continue diltiazem. 6. Type 2 diabetes. Follow fingersticks. Insulin as per protocol. 7. Anxiety. Continue home medication. 8. Gastroesophageal reflux disease (GERD). Continue Pepcid. 9. Dyslipidemia. Continue statin. 10. Constipation. Bowel regimen is ordered. 11. Vitamin D deficiency. Continue oral supplementation. 12. Deep venous thrombosis (DVT) prophylaxis. The patient on Xarelto for atrial fibrillation. DISPOSITION: Pending clinical improvement, physical therapy.
[2016-07-01] MEDS: methylPREDNISolone INJ 40 MG/1 ML VIAL (J2920) IV SCH (19:47)
--- NOTE | 2016-07-01 19:51 | ECGEPIP ---
Stationary ECG Study [facility] - ED Test Date: 2016-07-01 Pat Name: EVANGELINA CHAVEZ Department: Room: [place] [address] Gender: F City Editor: : 1945 Requested By: YOBANI MARTINO Order Number: [id number] Reading MD: Ingrid Gill Measurements Intervals [place] Rate: 119 P: [place]: 0 QRS: 59 QRSD: 94 T: 19 QT: 286 QTc: 402 Interpretive Statements ATRIAL FLUTTER/FIB WITH RAPID VENTRICULAR RESPONSE NONSPECIFIC ST & T-WAVE ABNORMALITY ABNORMAL RHYTHM ECG Electronically Signed On 07-01-2016 19:50:56 EST by Ingrid Gill
[2016-07-01] MEDS: VANCOMYCIN HCL 750 MG, VIAL MATE ADAPTER 1 EACH in D5W 250 ML IV SCH (21:07)
[2016-07-01] MEDS: ROSUVASTATIN 10 MG TAB (CRESTOR) PO SCH (21:07)
[2016-07-01] MEDS: MONTELUKAST 10 MG TAB PO SCH (21:07)
[2016-07-01] MEDS: LISINOPRIL 5 MG TAB PO SCH (21:08)
[2016-07-01] MEDS: ACETAMINOPHEN TAB 650MG DOSE (2X325MG) PO PRN (22:46)
[2016-07-02] VITALS (18 sets, daily range): BP systolic 101–171; BP diastolic 48–74; O2SAT 91–98
[2016-07-02] MEDS: IPRATROPIUM 0.5MG/ALBUTEROL 2.5MG INH SOL UD 3ML (DUONEB)(J7620) NEB SCH ×6 (00:06→20:36)
[2016-07-02] MEDS: MEROPENEM INJ 2 GM in NS 100 ML IV SCH ×3 (02:58→18:12)
[2016-07-02] MEDS ORDERED: LevoFLOXacin IV 750 MG in APPROPRIATE DILUENT 1 EA IV SCH (03:00)
[2016-07-02 04:41] LABS: MEAN CORPUSCULAR HEMOGLOBIN 29.2 pg (27.0-33.0); MEAN CORPUSCULAR HGB CONC 31.3 g/dl (32.0-36.5); MEAN CORPUSCULAR VOLUME 93.3 fl (80.0-96.0); RED CELL DISTRIBUTION WIDTH 18.1 % (11.5-14.5); WHITE BLOOD COUNT 9.6 K/mm3 (4.0-10.0)
[2016-07-02 05:07] LABS: ANION GAP 7 MEQ/L (8-16); BLOOD UREA NITROGEN 26 MG/DL (7-18); CALCIUM LEVEL 8.3 MG/DL (8.8-10.2); CARBON DIOXIDE LEVEL 38 MEQ/L (21-32); CHLORIDE LEVEL 97 MEQ/L (98-107); GLOMERULAR FILTRATION RATE > 60.0 (>39); GLUCOSE, FASTING 146 MG/DL (83-110); SODIUM LEVEL 142 MEQ/L (136-145)
[2016-07-02 05:15] LABS: POTASSIUM SERUM 5.2 MEQ/L (3.5-5.1)
[2016-07-02] MEDS: HumaLOG INSULIN (NovoLOG) PER UNIT SC SCH ×4 (07:40→20:19)
[2016-07-02] MEDS: methylPREDNISolone INJ 40 MG/1 ML VIAL (J2920) IV SCH ×2 (07:41→19:32)
[2016-07-02] MEDS: VANCOMYCIN HCL 750 MG, VIAL MATE ADAPTER 1 EACH in D5W 250 ML IV SCH ×2 (09:11→20:54)
[2016-07-02] MEDS: ASPIRIN 81 MG ENTERIC TAB PO SCH (09:12)
[2016-07-02] MEDS: OSELTAMIVIR PHOSPHATE 75 MG CAP (TAMIFLU) PO SCH ×2 (09:12→20:53)
[2016-07-02] MEDS: FAMOTIDINE 20 MG TAB PO SCH ×2 (09:12→20:54)
[2016-07-02] MEDS: VITAMIN D 1,000 INTERNATIONAL UNITS TABLET PO SCH (09:12)
[2016-07-02] MEDS: SENNA 8.6 MG TAB (SENOKOT) PO SCH (09:12)
[2016-07-02] MEDS: MIRALAX *UNIT DOSE* 17GM PACKET PO SCH ×2 (09:12→20:19)
[2016-07-02] MEDS: DOCUSATE SODIUM 100 MG CAP PO SCH (09:12)
[2016-07-02] MEDS: BISACODYL 10 MG SUPP PR SCH (09:13)
[2016-07-02] MEDS: DULoxetine 30 MG CAP (CYMBALTA) PO SCH (09:16)
[2016-07-02] MEDS: BUDESONIDE 0.5 MG/2 ML INHALATION SUSPENSION INH SCH ×2 (11:12→20:36)
[2016-07-02 12:11] LABS: ABG BASE EXCESS 9.9 (-2.0-2.0); ABG HCO3 36.1 MEQ/L (22.0-26.0); ABG PARTIAL PRESSURE CO2 60.5 mmHg (35.0-45.0); ABG PARTIAL PRESSURE O2 86.3 mmHg (75.0-100.0); ABG STANDARD HCO3 33.6 MEQ/L (22.0-26.0); ABG pH (ARTERIAL) 7.394 UNITS (7.350-7.450)
[2016-07-02 14:14] LABS: REASON FOR REVIEW ANEMIA / RBC MORPH; RETICULOCYTE % ADVIA2120 2.92 % (0.5-1.5); RETICULOCYTE ABSOLUTE ADVIA212 80 x10(9)/L (17-77)
[2016-07-02 14:15] LABS: RETIC HEMOGLOBIN CONTENT CHr 29.9 PG (24-36)
[2016-07-02 14:24] LABS: PERCENT SATURATION 13.1 % (13.2-37.4)
[2016-07-02] MEDS: RIVAROXABAN 20 MG TAB (XARELTO) PO SCH (17:30)
[2016-07-02] MEDS: ACETAMINOPHEN TAB 650MG DOSE (2X325MG) PO PRN (20:04)
[2016-07-02] MEDS: FERROUS SULFATE 325MG TAB PO SCH (20:53)
[2016-07-02] MEDS: ROSUVASTATIN 10 MG TAB (CRESTOR) PO SCH (20:53)
[2016-07-02] MEDS: MONTELUKAST 10 MG TAB PO SCH (20:54)
[2016-07-02] MEDS: LISINOPRIL 5 MG TAB PO SCH (20:54)
[2016-07-02] MEDS: SENOKOT S TAB PO SCH (20:54)
[2016-07-02] MEDS: ASCORBIC ACID 500 MG TAB PO SCH (20:54)
[2016-07-02] MEDS ORDERED: PHYTONADIONE 5 MG TAB PO ONE ×2 (22:45)
[2016-07-02 23:03] LABS: INR 7.15
[2016-07-03] VITALS (20 sets, daily range): BP systolic 129–253; BP diastolic 59–136; O2SAT 97
[2016-07-03] MEDS: IPRATROPIUM 0.5MG/ALBUTEROL 2.5MG INH SOL UD 3ML (DUONEB)(J7620) NEB SCH ×6 (00:02→20:28)
[2016-07-03] MEDS: ACETAMINOPHEN TAB 650MG DOSE (2X325MG) PO PRN (02:28)
[2016-07-03] MEDS: MEROPENEM INJ 2 GM in NS 100 ML IV SCH ×2 (02:59→11:41)
[2016-07-03] MEDS: BUDESONIDE 0.5 MG/2 ML INHALATION SUSPENSION INH SCH ×2 (07:41→20:28)
[2016-07-03] MEDS: methylPREDNISolone INJ 40 MG/1 ML VIAL (J2920) IV SCH ×2 (07:48→19:43)
[2016-07-03] MEDS: HumaLOG INSULIN (NovoLOG) PER UNIT SC SCH ×4 (07:48→21:00)
[2016-07-03] MEDS: TIOTROPIUM INHALER/CAPSULE (SPIRIVA) INH SCH (08:00)
[2016-07-03] MEDS ORDERED: FUROSEMIDE 40 MG/4 ML VIAL (J1940) IV ONE (08:45)
[2016-07-03] MEDS ORDERED: FUROSEMIDE 40 MG/4 ML VIAL (J1940) As Ordered ONE (08:46)
--- NOTE | 2016-07-03 08:49 | EDDOCDS ---
Physician Documentation [facility] Name: Jennifer Gooden Age: 70 yrs Sex: Female : 1945 Arrival Date: 07/01/2016 Time: 01:49 Bed 3 Private MD: Disposition: 07/01/16 03:38 Hospitalization ordered by Phong Becker for Inpatient Admission. Preliminary diagnosis are Respiratory failure, unspecified with hypercapnia, Pneumonia in diseases classified elsewhere - possible. - Bed requested for M ICU. - Status is Inpatient Admission. pml - Condition is Stable. - Problem is new. - Symptoms have improved. Historical: - Allergies: no known allergies; - Home Meds: 1. Cardizem CD 240 mg Oral cp24 1 cap once daily 2. Xarelto 20 mg oral tab 1 tab once daily 3. vit D3-folic [id number]-B12 2,000-800-0.32 unit-mcg-mg oral tab 4. Milk of Magnesia Oral once daily 2400mg/10ml 5. tubersol 6. aspirin 81 mg Oral tab 1 tab once daily 7. Colace 100 mg oral cap 1 cap once daily 8. Cymbalta 60 mg Oral cpDR 1 cap once daily 9. famotidine 20 mg Oral tab 1 tab 2 times per day 10. lisinopril 5 mg Oral tab 1 tab once daily 11. Singulair 10 mg Oral tab 1 tab once daily 12. Crestor 10 mg Oral tab 1 tab once daily 13. sennosides 8.6 mg oral cap 2 caps once daily 14. vit d12 daily 13380 units 15. Albuterol Nebulizer - PMHx: Anemia; type 2 diabetes; vit d deficiency; hyperlipidemia; Hypertension; angina pectoris; Atrial Fib; CHF; GERD; Constipation, Chronic; Hematuria; chronic respiratory failure; - PSHx: Cesearean Section; Tubal ligation; Knee surgery- Right; Appendectomy; Tonsillectomy; - Social history: Smoking status: Patient states former smoker of tobacco. No barriers to communication noted, The patient speaks fluent [place]. - Family history: Not pertinent. - : The pt / caregiver states he / she is on anticoagulants: Xarelto Home medication list is obtained from the facility [facility]. - Exposure Risk Screening:: None identified. Vital Signs: 07/01 01:56 BP 162 / 73 (auto/); kas2 01:56 Pulse Ox 97% ; kas2 02:00 BP 156 / 77 (auto/); kas2 02:00 Pulse 122 MON; Pulse Ox 98% ; kas2 02:06 BP 125 / 63 (auto/); kas2 02:06 Pulse 125 MON; Pulse Ox 99% ; kas2 02:11 Pulse Ox 97% 4 lpm ; jh6 02:11 BP 198 / 87; Pulse 127; Resp 32; Pulse Ox 100% on Venturi mask; Weight 82.33 kg / kas2 181.51 lbs; Height 5 ft. 5 in. (165.10 cm); Pain 0/10; 02:21 BP 127 / 64 (auto/); kas2 02:21 Pulse 131 MON; Pulse Ox 96% ; kas2 02:36 BP 140 / 71 (auto/); kas2 02:36 Pulse 129 MON; Pulse Ox 95% ; kas2 02:51 BP 121 / 56 (auto/); kas2 02:51 Pulse 123 MON; Pulse Ox 98% ; kas2 03:05 Resp 28; Temp 98.9(TE); kas2 03:06 BP 140 / 69 (auto/); kas2 03:06 Pulse 127 MON; Pulse Ox 98% ; kas2 03:21 BP 137 / 62 (auto/); kas2 03:21 Pulse 129 MON; Pulse Ox 98% ; kas2 03:36 BP 159 / 88 (auto/); kas2 03:36 Pulse 130 MON; Pulse Ox 96% ; kas2 03:51 BP 116 / 72 (auto/); kas2 03:51 Pulse 130 MON; Pulse Ox 96% ; kas2 04:21 BP 158 / 71 (auto/); kas2 04:21 Pulse 138 MON; Pulse Ox 94% ; kas2 04:36 BP 145 / 63 (auto/); kas2 04:36 Pulse 131 MON; Pulse Ox 95% ; kas2 05:09 Temp 97.9(TE); Pulse Ox 99% on BiPAP; Pain 0/10; kas2 05:20 BP 128 / 74 (auto/); kas2 05:20 Pulse 130 MON; Pulse Ox 92% ; kas2 05:35 BP 154 / 92 (auto/); kas2 05:35 Pulse 128 MON; Pulse Ox 99% ; kas2 05:51 BP 162 / 70 (auto/); kas2 05:51 Pulse 127 MON; Pulse Ox 99% ; kas2 06:06 BP 191 / 77 (auto/); kas2 06:06 Pulse 124 MON; Pulse Ox 96% ; kas2 06:21 BP 167 / 71 (auto/); kas2 06:21 Pulse 128 MON; Pulse Ox 97% ; kas2 06:35 BP 142 / 55 (auto/); kas2 06:35 Pulse 128 MON; Pulse Ox 97% ; kas2 06:41 Resp 20; Temp 98.6(TE); Pain 0/10; kas2 06:51 Pulse 127 MON; Pulse Ox 98% ; pml 06:51 BP 154 / 67 (auto/); pml 07:05 Pulse 129 MON; Pulse Ox 99% ; pml 07:05 BP 136 / 67 (auto/); pml 07:20 Pulse 127 MON; Pulse Ox 99% ; pml 07:20 BP 131 / 80 (auto/); pml 07:35 Pulse 129 MON; pml 07:35 BP 119 / 69 (auto/); pml 07:43 BP 119 / 69; Pulse 124; Resp 18; Temp 98.3; Pulse Ox 97% on R/A; pml 02:11 Body Mass Index 30.20 (82.33 kg, 165.10 cm) [facility] MDM: 02:17 IV Saline Lock ordered. cs11 02:17 Dexamethasone 12 mg IV at bolus once ordered. cs11 02:17 Albuterol-Ipratropium 1 neb Nebulizer every 20 minutes x3 ordered. cs11 02:17 Call Respiratory ordered. cs11 02:17 Call Respiratory ordered. cs11 02:17 IV Saline Lock ordered. cs11 02:17 -Blood Culture (Adults Only), peripheral from different site, or from device/port/PICC cs11 etc. if present ordered. 02:17 -Arterial Blood Gas Ordered. EDMS 02:17 CBC with Diff Ordered. EDMS 02:17 -Blood Culture Ordered. EDMS 02:17 MED Profile Ordered. EDMS 02:17 BNP Ordered. EDMS 02:17 Theophylline Level Ordered. EDMS 02:17 Lactic Acid (Whalen tube on ice) Ordered. EDMS 02:17 ECG WITH READING ER PHYS+CARDIAG ordered. EDMS 02:18 Call Respiratory complete. jlm 02:19 Chest, 1 View Ordered. EDMS 02:19 -Blood Culture (Adults Only), peripheral from different site, or from device/port/PICC jlm etc. if present complete. 02:19 Call Respiratory complete. jlm 02:20 BLOOD CULTURES Ordered. EDMS 02:34 Nitro-Bid Ointment 2 % 0.5 inches Transdermal once ordered. cs11 02:34 Furosemide 60 mg IVP once ordered. cs11 02:38 BIPAP INPATIENT+RESP-VENT ordered. EDMS 03:06 Harry ordered. kas2 03:16 -Arterial Blood Gas Reviewed. cs11 03:16 CBC with Diff Reviewed. cs11 03:16 MED Profile Reviewed. cs11 03:16 BNP Reviewed. cs11 03:16 Lactic Acid (Whalen tube on ice) Reviewed. cs11 03:20 levofloxacin 500 mg IVPB once over 60 mins ordered. cs11 03:20 vancomycin (loading dose for pt. wt. 60-69kg) 1500 mg IVPB once ordered. cs11 03:22 BED REQUEST+ADM ordered. EDMS 03:29 MED Profile Reviewed. cs11 03:29 Theophylline Level Reviewed. cs11 03:33 Financial registration complete. hs2 03:35 ARTERIAL BLOOD GAS Ordered. EDMS 03:36 -Arterial Blood Gas Ordered. EDMS 03:39 INFLUENZA A&B RAPID ANTIGEN Ordered. EDMS 04:05 [facility] Payment Agreement was scanned into [employer] and attached to record. hs2 04:16 CBC with Diff Reviewed. cs11 04:16 RBC MORPH PROF NO CHARGE Reviewed. cs11 04:19 CT Chest Angio R/O PE Ordered. EDMS 05:00 BIPAP INPATIENT ordered. EDMS 05:01 Admission / Observation Status ordered. EDMS 05:40 BIPAP INPATIENT ordered. EDMS 05:43 RESPIRATORY PANEL Ordered. EDMS 05:46 CONSISTENT CARBOHYDRATES ordered. EDMS 05:47 URINALYSIS Ordered. EDMS 05:47 URINE CULTURE Ordered. EDMS 07:04 VENOUS BLOOD GAS Ordered. EDMS 07:04 C REACTIVE PROTEIN QUANTITATIV Ordered. EDMS 14:47 T-Sheet-- Draft Copy was scanned into [employer] and attached to record. gb 14:47 ECG/EKG was scanned into [employer] and attached to record. gb 14:47 Trend VS was scanned into [employer] and attached to record. gb 14:48 Rhythm Strip was scanned into [employer] and attached to record. gb 07/02 08:53 Radiology Report was scanned into [employer] and attached to record. gb Administered Medications: 07/01 02:20 CANCELLED (Duplicate Order): Albuterol-Ipratropium 3 ml Inhalation once jh6 02:20 Drug: Albuterol-Ipratropium 1 neb [ipratropium-albuterol 0.5 mg-3 mg(2.5 mg base)/3 mL jh6 nebulization soln (1 neb)] Route: Nebulizer; 02:42 Drug: Dexamethasone 12 mg [dexamethasone 4 mg/mL injection solution] Route: IV; Rate: kas2 bolus; Site: right antecubital; 02:46 Drug: Albuterol-Ipratropium 1 neb [ipratropium-albuterol 0.5 mg-3 mg(2.5 mg base)/3 mL 6 nebulization soln (1 neb)] Route: Nebulizer; 03:03 Drug: Nitro-Bid 0.5 inches [Nitro-Bid 2 % transdermal ointment (0.5 inches)] Route: kas2 Transdermal; Site: right upper arm; 03:03 Drug: Furosemide 60 mg [furosemide 10 mg/mL injection solution (6 mL)] Route: IVP; kas2 Site: right antecubital; 03:08 Drug: Albuterol-Ipratropium 1 neb [ipratropium-albuterol 0.5 mg-3 mg(2.5 mg base)/3 mL jh6 nebulization soln (1 neb)] Route: Nebulizer; 03:34 Drug: levofloxacin 500 mg [levofloxacin 500 mg/100 mL in 5 % dextrose intravenous kas2 piggyback] Route: IVPB; Infused Over: 60 mins; Site: right antecubital; 07:47 Follow up: IV Status: Completed infusion pml 04:32 Drug: vancomycin (loading dose for pt. wt. 60-69kg) 1500 mg [vancomycin 500 mg kas2 intravenous solution] Route: IVPB; Site: right antecubital; 07:47 Follow up: IV Status: Completed infusion pml Signatures: Dispatcher [employer] EDMS Shannan Teran RN RN daq Barnhardt, Gloria, Louie Sánchez 6 Annie Ibrahim RN RN pml Schiff, Craig, DO DO 11 Winnie Pickens, Institutional Nutrition Consultant Unit jlm [place], Reg Reg hs2 Charo Dee,RN RN kas2 The chart was reviewed and I authenticate all verbal orders and agree with the evaluation and treatment provided.Corrections: (The following items were deleted from the chart) 02:20 02:15 Albuterol-Ipratropium 3 ml Inhalation once ordered. jh6 jh6 Attachments: 04:05 [facility] Payment Agreement hs2 14:47 T-Sheet-- Draft Copy gb 14:47 ECG/EKG gb Chart Complete MTDD
--- NOTE | 2016-07-03 08:49 | EDDOCDS ---
Nurse's Notes [facility] Name: Jennifer Gooden Age: 70 yrs Sex: Female : 1945 Arrival Date: 07/01/2016 Time: 01:49 Bed 3 Private MD: Diagnosis: Respiratory failure, unspecified with hypercapnia;Pneumonia in diseases classified elsewhere-possible Presentation: 07/01 01:52 Presenting complaint: EMS states: Staff stated patient had shortness of breath about an kas2 hour ago. Put patient on 5L relationship banker and Sp02 98%. Breath sounds diminished and very tight as per EMS. Denies chest pain. Adult Sepsis Screening: The patient does not have new or worsening altered mentation. Patient has a respiratory rate of greater than or equal to 22 (1 point). Systolic blood pressure is greater than 100. Patient has a qSOFA score of 0- Negative Sepsis Screen. Suicide/Homicide risk assessment- the patient denies having any suicidal and/or homicidal ideations and does not present with any other emotional, behavioral or mental health complaints. Status: Patient is not a food service supervisor or dependent. Transition of care: patient was received from [facility]. 01:52 Acuity: VENITA Level 2 [facility] 01:52 Method Of Arrival: Ambulance [facility] Triage Assessment: 02:11 General: Appears distressed, ill, well nourished, well groomed, Behavior is anxious, kas2 cooperative. Pain: Denies pain. Neurological: Level of Consciousness is awake, alert, Oriented to person, place, time. Cardiovascular: Capillary refill < 3 seconds Heart tones S1 S2 present Rhythm is sinus tachycardia No ectopy. Chest pain is denied. Respiratory: Onset: The symptoms/episode began/occurred just prior to arrival, Airway is patent Respiratory effort is labored, with nasal flaring, Respiratory pattern is tachypnea Breath sounds with crackles inspiratory expiratory in left posterior lower lobe and right posterior lower lobe Breath sounds with wheezes inspiratory expiratory bilaterally. Derm: Skin is intact, Skin is moist, Skin is pale, Skin temperature is warm. Historical: - Allergies: no known allergies; - Home Meds: 1. Cardizem CD 240 mg Oral cp24 1 cap once daily 2. Xarelto 20 mg oral tab 1 tab once daily 3. vit D3-folic [id number] 2,000-800-0.32 unit-mcg-mg oral tab 4. Milk of Magnesia Oral once daily 2400mg/10ml 5. tubersol 6. aspirin 81 mg Oral tab 1 tab once daily 7. Colace 100 mg oral cap 1 cap once daily 8. Cymbalta 60 mg Oral cpDR 1 cap once daily 9. famotidine 20 mg Oral tab 1 tab 2 times per day 10. lisinopril 5 mg Oral tab 1 tab once daily 11. Singulair 10 mg Oral tab 1 tab once daily 12. Crestor 10 mg Oral tab 1 tab once daily 13. sennosides 8.6 mg oral cap 2 caps once daily 14. vit d12 daily 84463 units 15. Albuterol Nebulizer - PMHx: Anemia; type 2 diabetes; vit d deficiency; hyperlipidemia; Hypertension; angina pectoris; Atrial Fib; CHF; GERD; Constipation, Chronic; Hematuria; chronic respiratory failure; - PSHx: Cesearean Section; Tubal ligation; Knee surgery- Right; Appendectomy; Tonsillectomy; - Social history: Smoking status: Patient states former smoker of tobacco. No barriers to communication noted, The patient speaks fluent Montenegrin. - Family history: Not pertinent. - : The pt / caregiver states he / she is on anticoagulants: Xarelto Home medication list is obtained from the facility MAR. - Exposure Risk Screening:: None identified. Screenin:26 Screening information is obtained from the patient. Fall risk: No risks identified. kas2 Assistance ADL's: requires no assistance with activities of daily living. Abuse/DV Screen: The patient / caregiver reports he/she is: not in a situation that causes fear, pain or injury. Nutritional screening: No deficits noted. Advance Directives: Currently, there is no health care proxy. There is no active DNR order. There is no living will. There is no Power of Aoc [employer] Operations Staff Officer. home support is adequate. Assessment: 02:07 General: Appears distressed, ill, well nourished, well groomed, Behavior is drowsy. kas2 Pain: Denies pain. Neurological: Level of Consciousness is awake, alert, Oriented to person, place, time. Cardiovascular: Capillary refill < 3 seconds Heart tones S1 S2 present Rhythm is sinus tachycardia No ectopy. Chest pain is denied. Respiratory: Airway is patent Respiratory effort is labored, with nasal flaring, Respiratory pattern is tachypnea Breath sounds with crackles inspiratory expiratory in left posterior lower lobe and right posterior lower lobe Breath sounds with wheezes inspiratory expiratory bilaterally. Derm: Skin is intact, Skin is moist, Skin is pale, Skin temperature is warm. 03:01 General: Appears in no apparent distress, comfortable, Behavior is appropriate for age, kas2 cooperative. Pain: Denies pain. Neurological: Level of Consciousness is awake, alert, Oriented to person, place, time. Cardiovascular: Rhythm is sinus tachycardia No ectopy. Respiratory: Airway is patent Respiratory effort is even, unlabored, Respiratory pattern is regular, symmetrical. Derm: Skin is intact, Skin is moist, Skin is pale, Skin temperature is warm. 04:05 General: Appears in no apparent distress, comfortable, Behavior is appropriate for age, kas2 cooperative. Pain: Denies pain. Neurological: Level of Consciousness is awake, alert, Oriented to person, place, time. Cardiovascular: Rhythm is sinus tachycardia No ectopy. Respiratory: Airway is patent Respiratory effort is even, unlabored, Respiratory pattern is regular, symmetrical. Derm: Skin is intact, Skin is moist, Skin is pale, Skin temperature is warm. 04:45 General: Patient gone to CT scan via stretcher with RN and tech.. kas2 05:10 General: Patient back from CT scan via stretcher with RN. Resettled in bed. Hospitalist [facility] resident in assessing patient at this time.. 05:47 General: Appears in no apparent distress, comfortable, Behavior is appropriate for age, kas2 cooperative. Pain: Denies pain. Neurological: Level of Consciousness is awake, alert, Oriented to person, place, time. Respiratory: Airway is patent Respiratory effort is even, unlabored, Respiratory pattern is regular, symmetrical. Derm: Skin is intact, Skin is moist, Skin is pink, warm & dry. Skin temperature is warm. 05:47 Cardiovascular: Rhythm is sinus tachycardia with PACs. kas2 06:41 General: Appears in no apparent distress, comfortable, Behavior is appropriate for age, kas2 cooperative. Pain: Denies pain. Neurological: Level of Consciousness is awake, alert, Oriented to person, place, time. Cardiovascular: Rhythm is sinus tachycardia No ectopy. Chest pain is denied. Respiratory: Airway is patent Respiratory effort is even, unlabored, Respiratory pattern is regular, symmetrical, Breath sounds with crackles bilaterally. in left posterior lower lobe and right posterior lower lobe. Derm: Skin is intact, Skin is dry, Skin is pink, warm & dry. Skin temperature is warm. 07:02 General: Appears in no apparent distress, comfortable, Behavior is appropriate for age, pml cooperative. Pain: Denies pain. Neurological: Level of Consciousness is awake, alert, Oriented to person, place, time. Cardiovascular: Capillary refill < 3 seconds Rhythm is atrial fibrillation with rapid ventricular response. Respiratory: Airway is patent Respiratory effort is bipap in place. GI: Abdomen is non- distended obese. Derm: Skin is pink, warm & dry. 07:43 General: Appears in no apparent distress, comfortable, Behavior is appropriate for age, pml cooperative. Pain: Denies pain. Neurological: Level of Consciousness is awake, alert, Oriented to person, place, time. Cardiovascular: Capillary refill < 3 seconds Rhythm is atrial fibrillation. Respiratory: Airway is patent Respiratory effort is even, unlabored. Derm: Skin is pink, warm & dry. Vital Signs: 01:56 BP 162 / 73 (auto/); kas2 01:56 Pulse Ox 97% ; kas2 02:00 BP 156 / 77 (auto/); kas2 02:00 Pulse 122 MON; Pulse Ox 98% ; kas2 02:06 BP 125 / 63 (auto/); kas2 02:06 Pulse 125 MON; Pulse Ox 99% ; [facility] 02:11 Pulse Ox 97% 4 lpm ; jh6 02:11 BP 198 / 87; Pulse 127; Resp 32; Pulse Ox 100% on Venturi mask; Weight 82.33 kg; Height [facility] 5 ft. 5 in. (165.10 cm); Pain 0/10; 02:21 BP 127 / 64 (auto/); kas2 02:21 Pulse 131 MON; Pulse Ox 96% ; kas2 02:36 BP 140 / 71 (auto/); kas2 02:36 Pulse 129 MON; Pulse Ox 95% ; kas2 02:51 BP 121 / 56 (auto/); kas2 02:51 Pulse 123 MON; Pulse Ox 98% ; kas2 03:05 Resp 28; Temp 98.9(TE); kas2 03:06 BP 140 / 69 (auto/); kas2 03:06 Pulse 127 MON; Pulse Ox 98% ; kas2 03:21 BP 137 / 62 (auto/); kas2 03:21 Pulse 129 MON; Pulse Ox 98% ; kas2 03:36 BP 159 / 88 (auto/); kas2 03:36 Pulse 130 MON; Pulse Ox 96% ; kas2 03:51 BP 116 / 72 (auto/); kas2 03:51 Pulse 130 MON; Pulse Ox 96% ; kas2 04:21 BP 158 / 71 (auto/); kas2 04:21 Pulse 138 MON; Pulse Ox 94% ; kas2 04:36 BP 145 / 63 (auto/); kas2 04:36 Pulse 131 MON; Pulse Ox 95% ; kas2 05:09 Temp 97.9(TE); Pulse Ox 99% on BiPAP; Pain 0/10; kas2 05:20 BP 128 / 74 (auto/); kas2 05:20 Pulse 130 MON; Pulse Ox 92% ; kas2 05:35 BP 154 / 92 (auto/); kas2 05:35 Pulse 128 MON; Pulse Ox 99% ; kas2 05:51 BP 162 / 70 (auto/); kas2 05:51 Pulse 127 MON; Pulse Ox 99% ; kas2 06:06 BP 191 / 77 (auto/); kas2 06:06 Pulse 124 MON; Pulse Ox 96% ; kas2 06:21 BP 167 / 71 (auto/); kas2 06:21 Pulse 128 MON; Pulse Ox 97% ; kas2 06:35 BP 142 / 55 (auto/); kas2 06:35 Pulse 128 MON; Pulse Ox 97% ; kas2 06:41 Resp 20; Temp 98.6(TE); Pain 0/10; kas2 06:51 Pulse 127 MON; Pulse Ox 98% ; pml 06:51 BP 154 / 67 (auto/); pml 07:05 Pulse 129 MON; Pulse Ox 99% ; pml 07:05 BP 136 / 67 (auto/); pml 07:20 Pulse 127 MON; Pulse Ox 99% ; pml 07:20 BP 131 / 80 (auto/); pml 07:35 Pulse 129 MON; pml 07:35 BP 119 / 69 (auto/); pml 07:43 BP 119 / 69; Pulse 124; Resp 18; Temp 98.3; Pulse Ox 97% on R/A; pml 02:11 Body Mass Index 30.20 (82.33 kg, 165.10 cm) [facility] Vitals: 02:11 Log In Time N/A - ambulance arrival. [facility] ED Course: 01:50 Charo Dee RN is Primary Nurse. [facility] 01:50 Patient visited by Winnie Pickens Radiation Control Health Physicist. [facility] 01:50 Patient moved to [facility] 01:55 Triage Initiated kas2 01:55 ged teacher on. Pulse ox on. NIBP on. kas2 02:08 Vadim Leigh DO is Attending Physician. cs11 02:08 Patient visited by Vadim Leigh DO. cs11 02:26 Inserted saline lock: 20 gauge in right antecubital area and blood collected. The kas2 patient tolerated the procedure well. No procedures done that require assistance. 02:26 EKG done. (by ED staff). Reviewed by Vadim Leigh DO. mdr 02:27 Patient visited by Celio Patrick PCA. mdr 02:27 Patient visited by Charo Dee RN. kas2 02:31 -Arterial Blood Gas Sent. jh6 02:43 BLOOD CULTURES Sent. kas2 02:44 Patient visited by Charo Dee RN. kas2 02:44 BIPAP: Inspiratory Pressure: 14, Expiratory Pressure: 8, FiO2: 50%. kas2 03:02 Urine collected. Specimen obtained from Harry. kas2 03:02 Harry cath inserted 16 Fr. Balloon inflated. To gravity drainage. Urine specimen kas2 collected. returned cloudy urine. Patient tolerated well. 03:03 Patient visited by Charo Dee RN. kas2 03:04 Patient visited by Charo Dee RN. kas2 03:35 Patient visited by Charo Dee RN. kas2 03:37 Phong Becker DO is Hospitalizing Provider. cs11 04:05 [facility] Payment Agreement was scanned into [employer] and attached to record. hs2 04:07 Patient name changed from Jennifer\S\\S\Ortmann\S\ to Jennifer\S\ \S\Ortmann. EDMS 04:34 Patient visited by Charo Dee RN. kas2 05:11 Patient visited by Charo Dee RN. kas2 05:48 Patient visited by Charo Dee RN. kas2 05:48 URINE CULTURE Sent. kas2 05:48 URINALYSIS Sent. kas2 06:12 CT Chest Angio R/O PE Returned. EDMS 06:42 Patient visited by Charo Dee RN. kas2 06:47 Patient visited by Charo Dee RN. [facility] 07:05 The patient / caregiver is instructed regarding the plan of care and ED course. Patient pml has correct armband on for positive identification. Bed in low position. Call light in reach. 07:06 Patient visited by Annie Ibrahim RN. pml 14:47 T-Sheet-- Draft Copy was scanned into [employer] and attached to record. gb 14:47 ECG/EKG was scanned into [employer] and attached to record. gb 14:47 Trend VS was scanned into [employer] and attached to record. gb 14:48 Rhythm Strip was scanned into [employer] and attached to record. gb 02 08:53 Radiology Report was scanned into [employer] and attached to record. gb Administered Medications: 07/01 02:20 CANCELLED (Duplicate Order): Albuterol-Ipratropium 3 ml Inhalation once jh6 02:20 Drug: Albuterol-Ipratropium 1 neb [ipratropium-albuterol 0.5 mg-3 mg(2.5 mg base)/3 mL jh6 nebulization soln (1 neb)] Route: Nebulizer; 02:42 Drug: Dexamethasone 12 mg [dexamethasone 4 mg/mL injection solution] Route: IV; Rate: kas2 bolus; Site: right antecubital; 02:46 Drug: Albuterol-Ipratropium 1 neb [ipratropium-albuterol 0.5 mg-3 mg(2.5 mg base)/3 mL jh6 nebulization soln (1 neb)] Route: Nebulizer; 03:03 Drug: Nitro-Bid 0.5 inches [Nitro-Bid 2 % transdermal ointment (0.5 inches)] Route: kas2 Transdermal; Site: right upper arm; 03:03 Drug: Furosemide 60 mg [furosemide 10 mg/mL injection solution (6 mL)] Route: IVP; kas2 Site: right antecubital; 03:08 Drug: Albuterol-Ipratropium 1 neb [ipratropium-albuterol 0.5 mg-3 mg(2.5 mg base)/3 mL jh6 nebulization soln (1 neb)] Route: Nebulizer; 03:34 Drug: levofloxacin 500 mg [levofloxacin 500 mg/100 mL in 5 % dextrose intravenous kas2 piggyback] Route: IVPB; Infused Over: 60 mins; Site: right antecubital; 07:47 Follow up: IV Status: Completed infusion pml 04:32 Drug: vancomycin (loading dose for pt. wt. 60-69kg) 1500 mg [vancomycin 500 mg kas2 intravenous solution] Route: IVPB; Site: right antecubital; 07:47 Follow up: IV Status: Completed infusion pml Attachments: 14:47 Trend VS gb 14:48 Rhythm Strip gb Intake: 07/01 06:40 IV: 350.00ml; Total: 350.00ml. kas2 Output: 06:40 Urine: 900.00ml (Harry); Total: 900.00ml. kas2 RT: 01:50 Respiratory: Airway is patent Respiratory effort is labored, Use of accessory muscles jh6 noted. Respiratory pattern is tachypnea Breath sounds are coarse in right upper lobe, left upper lobe, right middle lobe, left lower lobe and right lower lobe Breath sounds are diminished in right upper lobe, left upper lobe, right middle lobe, left lower lobe and right lower lobe Breath sounds with wheezes in right upper lobe, left upper lobe, right middle lobe, left lower lobe and right lower lobe at expiration. 02:11 O2 via nasal cannula \T\ 4L/min. jh6 02:20 Initial Med Neb Given as ordered Patient was instructed and evaluated on procedure jh6 Patient tolerated procedure well without adverse effect. Respiratory: Airway is patent Respiratory effort is even, labored, Use of accessory muscles noted. Respiratory pattern is tachypnea Breath sounds are coarse in right upper lobe, left upper lobe, right middle lobe, left lower lobe and right lower lobe Breath sounds are diminished in right upper lobe, left upper lobe, right middle lobe, left lower lobe and right lower lobe Breath sounds with wheezes in right upper lobe, left upper lobe, right middle lobe, left lower lobe and right lower lobe at expiration. 02:31 ABG's drawn from right radial artery pressure held for 5 minutes no bleeding noted jh6 pressure bandage applied specimen sent pt. tolerated well. Respiratory: Airway is patent Respiratory effort is even, labored, Use of accessory muscles noted. Respiratory pattern is regular symmetrical, Breath sounds are coarse in right upper lobe, left upper lobe, right middle lobe, left lower lobe and right lower lobe Breath sounds are diminished in right upper lobe, left upper lobe, right middle lobe, left lower lobe and right lower lobe Breath sounds with wheezes in right upper lobe, left upper lobe, right middle lobe, left lower lobe and right lower lobe at expiration. 02:44 BIPAP: Inspiratory Pressure: 14, Expiratory Pressure: 8, Backup Rate: 10, FiO2: 50%, jh6 Full face fask. 02:49 Subsequent Med Neb Given as ordered Patient was reinforced on procedure Patient jh6 tolerated procedure well without adverse effect. Respiratory: Airway is patent Respiratory effort is even, unlabored, Respiratory pattern is regular symmetrical, Breath sounds are coarse in right upper lobe, left upper lobe, right middle lobe, left lower lobe and right lower lobe Breath sounds are diminished in right upper lobe, left upper lobe, right middle lobe, left lower lobe and right lower lobe Breath sounds with wheezes in right upper lobe, left upper lobe, right middle lobe, left lower lobe and right lower lobe at expiration. 03:08 Subsequent Med Neb Given as ordered Patient was reinforced on procedure Patient jh6 tolerated procedure well without adverse effect. Respiratory: Airway is patent Respiratory effort is even, unlabored, Respiratory pattern is regular symmetrical, Breath sounds are coarse in right upper lobe and right middle lobe Breath sounds with crackles in left upper lobe Breath sounds are diminished in right upper lobe, left upper lobe, right middle lobe, left lower lobe and right lower lobe. 03:16 Respiratory: Breath sounds are diminished in right upper lobe, left upper lobe, right jh6 middle lobe, left lower lobe and right lower lobe Breath sounds with wheezes in right upper lobe, left upper lobe, right middle lobe, left lower lobe and right lower lobe at expiration. Order Results: Lab Order: -Arterial Blood Gas; SPEC'M 07/01/16 02:22 Test: ABG pH (ARTERIAL); Value: 7.263; Range: 7.350-7.450; Abnormal: Below low normal; Units: UNITS; Status: F Test: ABG PARTIAL PRESSURE CO2; Value: 91.9; Range: 35.0-45.0; Abnormal: Above upper panic limits; Units: mmHg; Status: F Test: ABG PARTIAL PRESSURE O2; Value: 143.5; Range: 75.0-100.0; Abnormal: Above high normal; Units: mmHg; Status: F Test: ABG TOTAL CO2; Value: 43.4; Range: 23.0-31.0; Abnormal: Above high normal; Units: MEQ/L; Status: F Test: ABG HCO3; Value: 40.6; Range: 22.0-26.0; Abnormal: Above high normal; Units: MEQ/L; Status: F Test: ABG BASE EXCESS; Value: 11.1; Range: -2.0-2.0; Abnormal: Above high normal; Status: F Test: ABG STANDARD HCO3; Value: 34.9; Range: 22.0-26.0; Abnormal: Above high normal; Units: MEQ/L; Status: F Test: ABG O2 SATURATION; Value: 98.8; Range: 95.0-99.0; Units: %; Status: F Test: ABG DEVICE; Value: NASAL ERNESTINE; Status: F Lab Order: CBC with Diff; SPEC'M 07/01/16 02:02 Test: WHITE BLOOD COUNT; Value: 10.4; Range: 4.0-10.0; Abnormal: Above high normal; Units: K/mm3; Status: F Test: RED BLOOD COUNT; Value: 3.20; Range: 4.00-5.40; Abnormal: Below low normal; Units: M/mm3; Status: F Test: HEMOGLOBIN; Value: 9.3; Range: 12.0-16.0; Abnormal: Below low normal; Units: g/dl; Status: F Test: HEMATOCRIT; Value: 29.8; Range: 36.0-47.0; Abnormal: Below low normal; Units: %; Status: F Test: MEAN CORPUSCULAR VOLUME; Value: 93.1; Range: 80.0-96.0; Units: fl; Status: F Test: MEAN CORPUSCULAR HEMOGLOBIN; Value: 29.0; Range: 27.0-33.0; Units: pg; Status: F Test: MEAN CORPUSCULAR HGB CONC; Value: 31.1; Range: 32.0-36.5; Abnormal: Below low normal; Units: g/dl; Status: F Test: RED CELL DISTRIBUTION WIDTH; Value: 17.9; Range: 11.5-14.5; Abnormal: Above high normal; Units: %; Status: F Test: PLATELET COUNT, AUTOMATED; Value: 191; Range: 150-450; Units: k/mm3; Status: F Test: NEUTROPHILS %; Value: 81.4; Range: 36.0-66.0; Abnormal: Above high normal; Units: %; Status: F Test: LYMPH %; Value: 11.2; Range: 24.0-44.0; Abnormal: Below low normal; Units: %; Status: F Test: MONO %; Value: 5.0; Range: 0.0-5.0; Units: %; Status: F Test: EOS %; Value: 0.1; Range: 0.0-3.0; Units: %; Status: F Test: BASO %; Value: 0.3; Range: 0.0-1.0; Units: %; Status: F Test: LARGE UNSTAINED CELL %; Value: 2.0; Range: 0.0-4.0; Units: %; Status: F Test: NEUTROPHILS #; Value: 8.5; Range: 1.8-7.7; Abnormal: Above high normal; Units: K/mm3; Status: F Test: LYMPH #; Value: 1.2; Range: 1.5-4.5; Abnormal: Below low normal; Units: K/mm3; Status: F Test: MONO #; Value: 0.5; Range: 0.0-0.8; Units: K/mm3; Status: F Test: EOS #; Value: 0.0; Range: 0.0-0.50; Units: K/mm3; Status: F Test: BASO #; Value: 0.0; Range: 0.0-0.2; Units: K/mm3; Status: F Test: LARGE UNSTAINED CELL #; Value: 0.2; Range: 0.0-0.4; Units: K/mm3; Status: F Lab Order: MED Profile; SPEC'M 07/01/16 02:02 Test: GLUCOSE, FASTING; Value: 174; Range: 83-110; Abnormal: Above high normal; Units: MG/DL; Status: F Test: BLOOD UREA NITROGEN; Value: 22; Range: 7-18; Abnormal: Above high normal; Units: MG/DL; Status: F Test: CREATININE FOR GFR; Value: 0.84; Range: 0.55-1.02; Units: MG/DL; Status: F Test: GLOMERULAR FILTRATION RATE; Value: > 60.0; Range: >39; Status: F Test: SODIUM LEVEL; Value: 142; Range: 136-145; Units: MEQ/L; Status: F Test: POTASSIUM SERUM; Value: 4.8; Range: 3.5-5.1; Units: MEQ/L; Status: F Test: CHLORIDE LEVEL; Value: 101; Range: 98-107; Units: MEQ/L; Status: F Test: CARBON DIOXIDE LEVEL; Value: 38; Range: 21-32; Abnormal: Above high normal; Units: MEQ/L; Status: F Test: ANION GAP; Value: 3; Range: 8-16; Abnormal: Below low normal; Units: MEQ/L; Status: F Test: CALCIUM LEVEL; Value: 8.5; Range: 8.8-10.2; Abnormal: Below low normal; Units: MG/DL; Status: F Test Note: ; Units are mL/min/1.73 m2 Chronic Kidney Disease Staging per NKF: Stage I & II GFR >=60 Normal to Mildly Decreased Stage III GFR 30-59 Moderately Decreased Stage IV GFR 15-29 Severely Decreased Stage V GFR <15 Very Little GFR Left ESRD GFR <15 on CASTING ASSISTANT Lab Order: BNP; 07/01/16 02:02 Test: BRAIN NATRIURETIC PEPTIDE; Value: 147; Range: <100; Abnormal: Above high normal; Units: PG/ML; Status: F Lab Order: Theophylline Level; 07/01/16 02:02 Test: THEOPHYLLINE LEVEL; Value: < 2.0; Range: 10.0-20.0; Abnormal: Below low normal; Units: UG/ML; Status: F Lab Order: Lactic Acid (Whalen tube on ice); 07/01/16 02:02 Test: LACTIC ACID SEPSIS PROTOCOL; Value: 1.1; Range: 0.4-2.0; Units: MMOL/L; Status: F Lab Order: RBC MORPH PROF NO CHARGE; 07/01/16 02:02 Test: PLATELET ESTIMATE; Range: NORMAL; Status: I Test: ANISOCYTOSIS; Value: 2+; Status: F Test: PLATELET ESTIMATE; Value: NORMAL; Range: NORMAL; Status: F Lab Order: VENOUS BLOOD GAS; 07/01/16 07:26 Test: VENOUS PH; Value: 7.338; Range: 7.330-7.430; Units: UNITS; Status: F Test: VENOUS PARTIAL PRESSURE CO2; Value: 62.7; Range: 38.0-50.0; Abnormal: Above high normal; Units: mmHg; Status: F Test: VENOUS PARTIAL PRESSURE O2; Value: 135.8; Range: 30.0-50.0; Abnormal: Above high normal; Units: mmHg; Status: F Test: VENOUS TOTAL CO2; Value: 34.8; Range: 24.0-28.0; Abnormal: Above high normal; Units: MEQ/L; Status: F Test: VENOUS HCO3; Value: 32.9; Range: 23.0-27.0; Abnormal: Above high normal; Units: MEQ/L; Status: F Test: VENOUS BASE EXCESS; Value: 5.8; Range: -2.0-2.0; Abnormal: Above high normal; Status: F Test: VENOUS STANDARD HCO3; Value: 29.7; Units: MEQ/L; Status: F Test: VENOUS O2 SATURATION; Value: 98.8; Range: 60.0-80.0; Abnormal: Above high normal; Units: %; Status: F Lab Order: C REACTIVE PROTEIN QUANTITATIV; SPEC'M 07/01/16 07:26 Test: C REACTIVE PROTEIN QUANTITATIV; Value: 1.41; Range: 0.00-0.30; Abnormal: Above high normal; Units: MG/DL; Status: F Radiology Order: CT Chest Angio R/O PE Test: CT Chest Angio R/O PE REASON FOR EXAMINATION: Shortness of Breath; ; CLINICAL HISTORY: Dyspnea, exclude PE.; TECHNIQUE: Multiple incremental axial, coronal and oblique images are obtained from the thoracic inle; t to the upper abdomen. Intravenous contrast material was administered as per pulmonary embolism prot; ocol.; COMMENTS:; Moderate centrilobular pulmonary emphysema.; Diffuse bilateral groundglass densities of the lungs more prominent in the right upper lobe, left upp; er lobe and bilateral lower lobes.; There is excellent opacification of pulmonary arterial system without evidence for pulmonary embolism; . Aorta is of normal caliber without evidence for dissection or aneurysm.; There is no evidence of pleural or parenchymal mass. There are no pleural effusions. There is no evid; ence of hilar or mediastinal lymphadenopathy. The heart and great vessels are within normal limits.; Images of the upper abdomen demonstrate no evidence of adrenal mass.; The bony structures are free of lytic or blastic lesions. Multilevel degenerative changes are seen in; volving the visualized thoracolumbar spine.; Scattered calcifications are seen involving the aorta and major branches compatible with atherosclero; sis.; IMPRESSION:; No evidence for pulmonary embolism.; Multifocal bronchopneumonia.; Moderate centrilobular pulmonary emphysema.; Thank you for your kind referral of this patient.; ; Outcome: 03:38 Decision to Hospitalize by Provider. cs11 05:51 CT Study completed. kas2 05:51 Discharge Assessment: patient administered narcotics - no. kas2 07:05 The following High Risk Discharge criteria are identified: None. Admitted to ICU pml accompanied by nurse, accompanied by tech, via stretcher, with oxygen, on monitor, with chart. Condition: good Condition: stable. Admission hand-off: Report called to HAT BRIM CURLER. Property :Personal belongings accompany Pt. 07:48 Patient left the ED. pml Signatures: Dispatcher [employer] EDMS Tracey Talbot, Reg Reg gb Louie Thakkar jh6 Annie Ibrahim,RN RN pml Vadim Leigh, DO cs11 Winnie Pickens, Radiation Control Health Physicist Unit jlm Celio Patrick, FINISHER MAP AND CHART FINISHER MAP AND CHART Anna John, Reg Reg hs2 Charo Dee,RN RN kas2 Corrections: (The following items were deleted from the chart) 06:47 05:47 Cardiovascular: Rhythm is sinus tachycardia No ectopy. [facility] kas2 07:33 07:02 Cardiovascular: Capillary refill < 3 seconds Rhythm is sinus tachycardia No pml ectopy. pml Chart Complete MTDD
--- NOTE | 2016-07-03 08:49 | EDDOCDS ---
Physician Documentation [facility] Name: Jennifer Gooden Age: 70 yrs Sex: Female : 1945 Arrival Date: 07/01/2016 Time: 01:49 Bed 3 Private MD: Disposition: 07/01/16 03:38 Hospitalization ordered by Phong Becker for Inpatient Admission. Preliminary diagnosis are Respiratory failure, unspecified with hypercapnia, Pneumonia in diseases classified elsewhere - possible. - Bed requested for M ICU. - Status is Inpatient Admission. pml - Condition is Stable. - Problem is new. - Symptoms have improved. Historical: - Allergies: no known allergies; - Home Meds: 1. Cardizem CD 240 mg Oral cp24 1 cap once daily 2. Xarelto 20 mg oral tab 1 tab once daily 3. vit D3-folic hzkp-[id number]-B12 2,000-800-0.32 unit-mcg-mg oral tab 4. Milk of Magnesia Oral once daily 2400mg/10ml 5. tubersol 6. aspirin 81 mg Oral tab 1 tab once daily 7. Colace 100 mg oral cap 1 cap once daily 8. Cymbalta 60 mg Oral cpDR 1 cap once daily 9. famotidine 20 mg Oral tab 1 tab 2 times per day 10. lisinopril 5 mg Oral tab 1 tab once daily 11. Singulair 10 mg Oral tab 1 tab once daily 12. Crestor 10 mg Oral tab 1 tab once daily 13. sennosides 8.6 mg oral cap 2 caps once daily 14. vit d12 daily 52612 units 15. Albuterol Nebulizer - PMHx: Anemia; type 2 diabetes; vit d deficiency; hyperlipidemia; Hypertension; angina pectoris; Atrial Fib; CHF; GERD; Constipation, Chronic; Hematuria; chronic respiratory failure; - PSHx: Cesearean Section; Tubal ligation; Knee surgery- Right; Appendectomy; Tonsillectomy; - Social history: Smoking status: Patient states former smoker of tobacco. No barriers to communication noted, The patient speaks fluent [place]. - Family history: Not pertinent. - : The pt / caregiver states he / she is on anticoagulants: Xarelto Home medication list is obtained from the facility [facility]. - Exposure Risk Screening:: None identified. Vital Signs: 07/01 01:56 BP 162 / 73 (auto/); kas2 01:56 Pulse Ox 97% ; kas2 02:00 BP 156 / 77 (auto/); kas2 02:00 Pulse 122 MON; Pulse Ox 98% ; kas2 02:06 BP 125 / 63 (auto/); kas2 02:06 Pulse 125 MON; Pulse Ox 99% ; kas2 02:11 Pulse Ox 97% 4 lpm ; jh6 02:11 BP 198 / 87; Pulse 127; Resp 32; Pulse Ox 100% on Venturi mask; Weight 82.33 kg / kas2 181.51 lbs; Height 5 ft. 5 in. (165.10 cm); Pain 0/10; 02:21 BP 127 / 64 (auto/); kas2 02:21 Pulse 131 MON; Pulse Ox 96% ; kas2 02:36 BP 140 / 71 (auto/); kas2 02:36 Pulse 129 MON; Pulse Ox 95% ; kas2 02:51 BP 121 / 56 (auto/); kas2 02:51 Pulse 123 MON; Pulse Ox 98% ; kas2 03:05 Resp 28; Temp 98.9(TE); kas2 03:06 BP 140 / 69 (auto/); kas2 03:06 Pulse 127 MON; Pulse Ox 98% ; kas2 03:21 BP 137 / 62 (auto/); kas2 03:21 Pulse 129 MON; Pulse Ox 98% ; kas2 03:36 BP 159 / 88 (auto/); kas2 03:36 Pulse 130 MON; Pulse Ox 96% ; kas2 03:51 BP 116 / 72 (auto/); kas2 03:51 Pulse 130 MON; Pulse Ox 96% ; kas2 04:21 BP 158 / 71 (auto/); kas2 04:21 Pulse 138 MON; Pulse Ox 94% ; kas2 04:36 BP 145 / 63 (auto/); kas2 04:36 Pulse 131 MON; Pulse Ox 95% ; kas2 05:09 Temp 97.9(TE); Pulse Ox 99% on BiPAP; Pain 0/10; kas2 05:20 BP 128 / 74 (auto/); kas2 05:20 Pulse 130 MON; Pulse Ox 92% ; kas2 05:35 BP 154 / 92 (auto/); kas2 05:35 Pulse 128 MON; Pulse Ox 99% ; kas2 05:51 BP 162 / 70 (auto/); kas2 05:51 Pulse 127 MON; Pulse Ox 99% ; kas2 06:06 BP 191 / 77 (auto/); kas2 06:06 Pulse 124 MON; Pulse Ox 96% ; kas2 06:21 BP 167 / 71 (auto/); kas2 06:21 Pulse 128 MON; Pulse Ox 97% ; kas2 06:35 BP 142 / 55 (auto/); kas2 06:35 Pulse 128 MON; Pulse Ox 97% ; kas2 06:41 Resp 20; Temp 98.6(TE); Pain 0/10; kas2 06:51 Pulse 127 MON; Pulse Ox 98% ; pml 06:51 BP 154 / 67 (auto/); pml 07:05 Pulse 129 MON; Pulse Ox 99% ; pml 07:05 BP 136 / 67 (auto/); pml 07:20 Pulse 127 MON; Pulse Ox 99% ; pml 07:20 BP 131 / 80 (auto/); pml 07:35 Pulse 129 MON; pml 07:35 BP 119 / 69 (auto/); pml 07:43 BP 119 / 69; Pulse 124; Resp 18; Temp 98.3; Pulse Ox 97% on R/A; pml 02:11 Body Mass Index 30.20 (82.33 kg, 165.10 cm) [facility] MDM: 02:17 IV Saline Lock ordered. cs11 02:17 Dexamethasone 12 mg IV at bolus once ordered. cs11 02:17 Albuterol-Ipratropium 1 neb Nebulizer every 20 minutes x3 ordered. cs11 02:17 Call Respiratory ordered. cs11 02:17 Call Respiratory ordered. cs11 02:17 IV Saline Lock ordered. cs11 02:17 -Blood Culture (Adults Only), peripheral from different site, or from device/port/PICC cs11 etc. if present ordered. 02:17 -Arterial Blood Gas Ordered. EDMS 02:17 CBC with Diff Ordered. EDMS 02:17 -Blood Culture Ordered. EDMS 02:17 MED Profile Ordered. EDMS 02:17 BNP Ordered. EDMS 02:17 Theophylline Level Ordered. EDMS 02:17 Lactic Acid (Whalen tube on ice) Ordered. EDMS 02:17 ECG WITH READING ER PHYS+CARDIAG ordered. EDMS 02:18 Call Respiratory complete. jlm 02:19 Chest, 1 View Ordered. EDMS 02:19 -Blood Culture (Adults Only), peripheral from different site, or from device/port/PICC jlm etc. if present complete. 02:19 Call Respiratory complete. jlm 02:20 BLOOD CULTURES Ordered. EDMS 02:34 Nitro-Bid Ointment 2 % 0.5 inches Transdermal once ordered. cs11 02:34 Furosemide 60 mg IVP once ordered. cs11 02:38 BIPAP INPATIENT+RESP-VENT ordered. EDMS 03:06 Harry ordered. kas2 03:16 -Arterial Blood Gas Reviewed. cs11 03:16 CBC with Diff Reviewed. cs11 03:16 MED Profile Reviewed. cs11 03:16 BNP Reviewed. cs11 03:16 Lactic Acid (Whalen tube on ice) Reviewed. cs11 03:20 levofloxacin 500 mg IVPB once over 60 mins ordered. cs11 03:20 vancomycin (loading dose for pt. wt. 60-69kg) 1500 mg IVPB once ordered. cs11 03:22 BED REQUEST+ADM ordered. EDMS 03:29 MED Profile Reviewed. cs11 03:29 Theophylline Level Reviewed. cs11 03:33 Financial registration complete. hs2 03:35 ARTERIAL BLOOD GAS Ordered. EDMS 03:36 -Arterial Blood Gas Ordered. EDMS 03:39 INFLUENZA A&B RAPID ANTIGEN Ordered. EDMS 04:05 [facility] Payment Agreement was scanned into [employer] and attached to record. hs2 04:16 CBC with Diff Reviewed. cs11 04:16 RBC MORPH PROF NO CHARGE Reviewed. cs11 04:19 CT Chest Angio R/O PE Ordered. EDMS 05:00 BIPAP INPATIENT ordered. EDMS 05:01 Admission / Observation Status ordered. EDMS 05:40 BIPAP INPATIENT ordered. EDMS 05:43 RESPIRATORY PANEL Ordered. EDMS 05:46 CONSISTENT CARBOHYDRATES ordered. EDMS 05:47 URINALYSIS Ordered. EDMS 05:47 URINE CULTURE Ordered. EDMS 07:04 VENOUS BLOOD GAS Ordered. EDMS 07:04 C REACTIVE PROTEIN QUANTITATIV Ordered. EDMS 14:47 T-Sheet-- Draft Copy was scanned into [employer] and attached to record. gb 14:47 ECG/EKG was scanned into [employer] and attached to record. gb 14:47 Trend VS was scanned into [employer] and attached to record. gb 14:48 Rhythm Strip was scanned into [employer] and attached to record. gb 07/02 08:53 Radiology Report was scanned into [employer] and attached to record. gb Administered Medications: 07/01 02:20 CANCELLED (Duplicate Order): Albuterol-Ipratropium 3 ml Inhalation once jh6 02:20 Drug: Albuterol-Ipratropium 1 neb [ipratropium-albuterol 0.5 mg-3 mg(2.5 mg base)/3 mL jh6 nebulization soln (1 neb)] Route: Nebulizer; 02:42 Drug: Dexamethasone 12 mg [dexamethasone 4 mg/mL injection solution] Route: IV; Rate: kas2 bolus; Site: right antecubital; 02:46 Drug: Albuterol-Ipratropium 1 neb [ipratropium-albuterol 0.5 mg-3 mg(2.5 mg base)/3 mL 6 nebulization soln (1 neb)] Route: Nebulizer; 03:03 Drug: Nitro-Bid 0.5 inches [Nitro-Bid 2 % transdermal ointment (0.5 inches)] Route: kas2 Transdermal; Site: right upper arm; 03:03 Drug: Furosemide 60 mg [furosemide 10 mg/mL injection solution (6 mL)] Route: IVP; kas2 Site: right antecubital; 03:08 Drug: Albuterol-Ipratropium 1 neb [ipratropium-albuterol 0.5 mg-3 mg(2.5 mg base)/3 mL jh6 nebulization soln (1 neb)] Route: Nebulizer; 03:34 Drug: levofloxacin 500 mg [levofloxacin 500 mg/100 mL in 5 % dextrose intravenous kas2 piggyback] Route: IVPB; Infused Over: 60 mins; Site: right antecubital; 07:47 Follow up: IV Status: Completed infusion pml 04:32 Drug: vancomycin (loading dose for pt. wt. 60-69kg) 1500 mg [vancomycin 500 mg kas2 intravenous solution] Route: IVPB; Site: right antecubital; 07:47 Follow up: IV Status: Completed infusion pml Signatures: Dispatcher [employer] EDMS Shannan Teran RN RN daq Barnhardt, Gloria, Louie Sánchez 6 Annie Ibrahim RN RN pml Schiff, Craig, DO DO 11 Winnie Pickens, Lead Janitor Unit jlm Anna North, Reg Reg hs2 Charo Dee,RN RN kas2 The chart was reviewed and I authenticate all verbal orders and agree with the evaluation and treatment provided.Corrections: (The following items were deleted from the chart) 02:20 02:15 Albuterol-Ipratropium 3 ml Inhalation once ordered. jh6 jh6 Attachments: 04:05 [facility] [place] hs2 14:47 T-Sheet-- Draft Copy gb 14:47 ECG/EKG gb Chart Complete MTDD
[2016-07-03] MEDS: MIRALAX *UNIT DOSE* 17GM PACKET PO SCH ×2 (09:00→21:48)
[2016-07-03] MEDS ORDERED: RACEPINEPHrine 2.25 % UD INHA INH ONE (09:00)
[2016-07-03] MEDS ORDERED: RACEPINEPHrine 2.25 % UD INHA As Ordered ONE (09:04)
[2016-07-03] MEDS: SENOKOT S TAB PO SCH ×2 (09:30→21:48)
[2016-07-03] MEDS: ASCORBIC ACID 500 MG TAB PO SCH ×2 (09:30→21:48)
[2016-07-03] MEDS: OSELTAMIVIR PHOSPHATE 75 MG CAP (TAMIFLU) PO SCH ×2 (09:30→21:48)
[2016-07-03] MEDS: DULoxetine 30 MG CAP (CYMBALTA) PO SCH (09:30)
[2016-07-03] MEDS: BISACODYL 10 MG SUPP PR SCH (09:31)
[2016-07-03] MEDS: VANCOMYCIN HCL 750 MG, VIAL MATE ADAPTER 1 EACH in D5W 250 ML IV SCH ×2 (09:31→21:47)
[2016-07-03] MEDS: VITAMIN D 1,000 INTERNATIONAL UNITS TABLET PO SCH (09:31)
[2016-07-03] MEDS: FERROUS SULFATE 325MG TAB PO SCH ×2 (09:31→21:48)
[2016-07-03] MEDS: ASPIRIN 81 MG ENTERIC TAB PO SCH (09:31)
[2016-07-03] MEDS: FAMOTIDINE 20 MG TAB PO SCH ×2 (09:31→21:48)
[2016-07-03] MEDS: SENNA 8.6 MG TAB (SENOKOT) PO SCH (09:31)
--- NOTE | 2016-07-03 09:31 | REP ---
Clinical: Shortness of breath. Comparison: 06/30/2016. Findings: Mediastinum and cardiac silhouette are stable. Lung ayala demonstrate chronic emphysematous changes and fibrosis. Superimposed upper lobe infiltrates are suggested and require correlation. Chronic changes to the left diaphragmatic surface noted. Skeletal structures intact with evidence for old healed rib fractures. Impression: Chronic changes with superimposed upper lobe infiltrate suggested. Signed by Low Monahan MD 07/03/2016 09:21 A
[2016-07-03 09:54] LABS: CALCIUM LEVEL 8.5 MG/DL (8.8-10.2); CREATININE FOR GFR 0.98 MG/DL (0.55-1.02); GLOMERULAR FILTRATION RATE 59.7 (>39); MAGNESIUM LEVEL 2.4 MG/DL (1.8-2.4); POTASSIUM SERUM 4.5 MEQ/L (3.5-5.1)
[2016-07-03 10:06] LABS: MEAN CORPUSCULAR HEMOGLOBIN 29.4 pg (27.0-33.0); MEAN CORPUSCULAR HGB CONC 31.6 g/dl (32.0-36.5); MEAN CORPUSCULAR VOLUME 93.1 fl (80.0-96.0); RED CELL DISTRIBUTION WIDTH 18.2 % (11.5-14.5); WHITE BLOOD COUNT 16.9 K/mm3 (4.0-10.0)
[2016-07-03 10:13] LABS: INR 2.3
[2016-07-03] MEDS: MEROPENEM INJ 1 GM in D5W MINI-BAG PLUS 100 ML IV SCH (19:43)
[2016-07-03] MEDS: ROSUVASTATIN 10 MG TAB (CRESTOR) PO SCH (21:48)
[2016-07-03] MEDS: MONTELUKAST 10 MG TAB PO SCH (21:48)
[2016-07-03] MEDS: LISINOPRIL 5 MG TAB PO SCH (21:48)
[2016-07-04] VITALS (17 sets, daily range): BP systolic 144–172; BP diastolic 68–89; O2SAT 90–96
[2016-07-04] MEDS: IPRATROPIUM 0.5MG/ALBUTEROL 2.5MG INH SOL UD 3ML (DUONEB)(J7620) NEB SCH ×6 (00:32→20:40)
[2016-07-04] MEDS: MEROPENEM INJ 1 GM in D5W MINI-BAG PLUS 100 ML IV SCH ×3 (04:21→19:58)
[2016-07-04 04:34] LABS: MEAN CORPUSCULAR HGB CONC 32.2 g/dl (32.0-36.5); RED CELL DISTRIBUTION WIDTH 18.2 % (11.5-14.5); WHITE BLOOD COUNT 11.4 K/mm3 (4.0-10.0)
[2016-07-04 04:36] LABS: INR 1.38
[2016-07-04 04:49] LABS: ANION GAP 6 MEQ/L (8-16); BLOOD UREA NITROGEN 33 MG/DL (7-18); CALCIUM LEVEL 8.9 MG/DL (8.8-10.2); CARBON DIOXIDE LEVEL 39 MEQ/L (21-32); CHLORIDE LEVEL 98 MEQ/L (98-107); CREATININE FOR GFR 0.83 MG/DL (0.55-1.02); GLOMERULAR FILTRATION RATE > 60.0 (>39); GLUCOSE, FASTING 160 MG/DL (83-110); MAGNESIUM LEVEL 2.5 MG/DL (1.8-2.4); POTASSIUM SERUM 4.4 MEQ/L (3.5-5.1); SODIUM LEVEL 143 MEQ/L (136-145)
[2016-07-04] MEDS: BUDESONIDE 0.5 MG/2 ML INHALATION SUSPENSION INH SCH ×2 (08:33→20:40)
[2016-07-04] MEDS: TIOTROPIUM INHALER/CAPSULE (SPIRIVA) INH SCH (08:33)
[2016-07-04] MEDS: methylPREDNISolone INJ 40 MG/1 ML VIAL (J2920) IV SCH ×2 (08:41→19:59)
[2016-07-04] MEDS: HumaLOG INSULIN (NovoLOG) PER UNIT SC SCH ×4 (08:41→19:50)
[2016-07-04] MEDS: VITAMIN D 1,000 INTERNATIONAL UNITS TABLET PO SCH (08:42)
[2016-07-04] MEDS: SENNA 8.6 MG TAB (SENOKOT) PO SCH (08:42)
[2016-07-04] MEDS: SENOKOT S TAB PO SCH ×2 (08:42→22:43)
[2016-07-04] MEDS: FERROUS SULFATE 325MG TAB PO SCH ×2 (08:42→22:28)
[2016-07-04] MEDS: OSELTAMIVIR PHOSPHATE 75 MG CAP (TAMIFLU) PO SCH ×2 (08:42→22:28)
[2016-07-04] MEDS: VANCOMYCIN HCL 750 MG, VIAL MATE ADAPTER 1 EACH in D5W 250 ML IV SCH ×2 (08:42→22:27)
[2016-07-04] MEDS: ASCORBIC ACID 500 MG TAB PO SCH ×2 (08:42→22:28)
[2016-07-04] MEDS: DULoxetine 30 MG CAP (CYMBALTA) PO SCH (08:42)
[2016-07-04] MEDS: FAMOTIDINE 20 MG TAB PO SCH ×2 (08:42→22:28)
[2016-07-04] MEDS: MIRALAX *UNIT DOSE* 17GM PACKET PO SCH ×2 (08:42→21:00)
[2016-07-04] MEDS: ASPIRIN 81 MG ENTERIC TAB PO SCH (08:43)
[2016-07-04] MEDS: BISACODYL 10 MG SUPP PR SCH (08:44)
[2016-07-04 10:04] LABS: FOLATE 11.3 NG/ML (>5.4)
[2016-07-04] MEDS ORDERED: FUROSEMIDE 40 MG/4 ML VIAL (J1940) IV ONE (12:45)
[2016-07-04] MEDS: RIVAROXABAN 20 MG TAB (XARELTO) PO SCH (18:05)
--- NOTE | 2016-07-04 21:07 | IPN ---
DATE: 07/03/2016 The patient seen and examined. Overnight the patient has significant nose bleed with significant blood loss and patient was picking on it and apparently patient was recently switched from Coumadin to Xarelto two days prior to admission. A coagulation panel was sent overnight showing the patient with supratherapeutic INR. Xarelto has been discontinued. Fresh frozen plasma, vitamin K has been given as well as transfusion packed red blood cells. This morning, the patient was having significant dyspnea with upper airway stridor, possibly secondary to irritation from the blood. Racemic epinephrine (epi) has been given. The patient is also in atrial fibrillation with rapid supraventricular response prior to the Racemic epi. Cardizem was given, in addition Lasix has been given, given the patient has received a lot of transfusions overnight. The patient's condition gradually improved with treatment with Lasix, Cardizem and Racemic epi. The patient was able to get off the BiPAP. Code status was discussed with patient and family. The patient stated that she still wanted to be intubated, but does not want to be trach if the patient cannot be weaned off breathing tube in 7 days. Would like palliative care extubation with comfort measures. Overnight the patient has required intubation. Will continue to monitor and support. Denies any chest pain, pressure or discomfort. VITAL SIGNS: Temperature 98, pulse 104, respirations 30, blood pressure 129/60, pulse oximetry 92% on high flow nasal cannula, 6 liters. LABORATORY: WBC 16.9, hemoglobin and hematocrit 8.6/27.3, platelets 283. Chemistry: Sodium 142, potassium 4.5, chloride 98, bicarbonate 38, BUN 30, creatinine 0.98. PHYSICAL EXAMINATION: GENERAL: The patient obese, alert, oriented times three. HEENT: Normocephalic, atraumatic. PULMONARY: Diminished breath sounds bilateral with upper airway sounds. Turbulent flow. CARDIAC: Tachycardia. Irregular, S1, S2. ABDOMEN: Soft, nontender, positive bowel sounds. EXTREMITIES: No edema bilateral lower extremities. ASSESSMENT AND PLAN: This is a 70-year-old female patient with underlying medical history of anemia, type 2 diabetes, vitamin D deficiency, dyslipidemia, hypertension, angina, atrial fibrillation, congestive heart failure, gastroesophageal reflux disease (GERD), constipation, hematuria, chronic hypoxic respiratory failure, anxiety, COPD presented with two days of progressive worsening breathing admitted for acute on chronic hypercarbic respiratory failure and hypoxic respiratory failure. Recent history of intubation. Hospital course complicated with supratherapeutic INR and epistaxis, acute blood loss anemia. 1. Acute on chronic hypoxic respiratory failure. The patient was weaned off BiPAP, admitted to ICU. O2 supplementation, ABG. Respiratory panel positive for influenza. Started on Tamiflu, nebulizer treatment, budesonide, Singulair, Solu-Medrol, IV, meropenem, vancomycin for possible healthcare associated bacterial pneumonia. CT scan appreciated. Pulmonary consulted. 2. Multifocal healthcare associated bacterial pneumonia. Followup cultures. Sputum culture, respiratory panel positive for influenza. The patient on Tamiflu, meropenem, vancomycin. Followup MRSA pending. 3. Acute COPD exacerbation. Continue steroids, O2 supplementation. Wean off BiPAP. Repeat ABG. Continue antibiotic mentioned above. Nebulizer treatments, Solu-Medrol, Pulmicort, Singulair, pulmonary consultation. 4. Acute blood loss anemia secondary to epistaxis in the setting of supratherapeutic INR. Reversal agents, vitamin K and fresh frozen plasma given. Epistaxis blood loss has ceased. Followup hemoglobin and hematocrit. Transfuse as needed. Lasix after transfusion. 5. Hypertension. Continue lisinopril, diltiazem, monitor blood pressure. 6. Atrial fibrillation. Xarelto on hold. Given epistaxis. Continue diltiazem. Dosage has been adjusted. 7. Type 2 diabetes. Insulin. Followup fingersticks. Insulin as per protocol. 8. Anxiety. Continue home medications. 9. Gastroesophageal reflux disease (GERD). Continue Pepcid. 10. Dyslipidemia. Continue statin. 11. Constipation. Bowel regimen is ordered. 12. Vitamin D deficiency. Oral supplementation. 13. Deep venous thrombosis (DVT) prophylaxis. Patient with epistaxis. Will place the patient on sequential compression device. Avoid pharmacological agents for the next day or two until hemoglobin and hematocrit is stabilized. Disposition: Pending clinical improvement. Physical therapy. The patient remains FULL CODE. Code status discussed with patient and family.
--- NOTE | 2016-07-04 21:14 | IPN ---
DATE: 07/02/2016 The patient is seen and examined. Overnight, the patient was in atrial fibrillation with rapid ventricular response and given an additional dose of Cardizem with improvement. Cardizem dose subsequently was adjusted. The patient reported improved respirations. Denies any chest pain, pressure or discomfort. Still has mild dyspnea. Denies any diarrhea, nausea, or vomiting. VITAL SIGNS: Temperature 96.8, pulse 96, respirations 18, blood pressure 138/68, pulse oximetry 92% on 6 liters nasal cannula. LABORATORY DATA: WBC 9.6, hemoglobin and hematocrit 8/25.6, platelets 188. Repeat hemoglobin and hematocrit 7.9/25. Chemistry: Sodium 142, potassium 5.2, chloride 97, bicarbonate 38, BUN 26, creatinine 0.9. Cardiac enzymes negative times two. PHYSICAL EXAMINATION: The patient is obese, alert and oriented times three, weak. HEENT: Normocephalic, atraumatic. PULMONARY: Diminished breath sounds bilaterally. Bilateral wheeze. Poor inspiratory effort. CARDIAC: Tachycardia, irregular. S1, S2. ABDOMEN: Soft, nontender. Positive bowel sounds. EXTREMITIES: No edema in bilateral lower extremities. ASSESSMENT AND PLAN: This is a 70-year-old female patient with underlying medical history of anemia, type 2 diabetes, vitamin D deficiency, dyslipidemia, hypertension, angina, atrial fibrillation, congestive heart failure (CHF), gastroesophageal reflux disease (GERD), constipation, hematuria, chronic hypoxic respiratory failure, anxiety, chronic obstructive pulmonary disease (COPD), who presented with two days of progressively worsening breathing and admitted for acute on chronic hypercarbic respiratory failure with hypoxic respiratory failure. Recent history of intubation. PROBLEMS: 1. Acute on chronic hypercarbic, hypoxic respiratory failure. The patient is weaned off BiPAP. Admitted to intensive care unit (ICU). Oxygen supplementation. Repeat ABG appreciated. Respiratory panel positive for influenza and started on Tamiflu and nebulizer treatment, budesonide, Singulair, Solu-Medrol IV, meropenem, vancomycin for possible superimposed healthcare-associated bacterial pneumonia. CT scan appreciated. Pulmonology consulted. 2. Hyperkalemia. Continue to monitor potassium. Telemetry monitoring. 3. Acute on chronic anemia. Iron panel shows iron deficiency. B12, folate still pending. Followup reticulocyte count. Peripheral smear. Iron supplementation. Vitamin C. Bowel regimen prescribed. 4. Atrial fibrillation with rapid ventricular response. The patient's Cardizem dosage has been adjusted. Telemetry monitoring. The patient is on Xarelto for anticoagulation. Continue Diltiazem. Fecal occult ordered given the patient with worsening anemia. 5. Multifocal healthcare associated bacterial pneumonia. Followup cultures. Sputum culture. Respiratory panel positive for influenza. Tamiflu started. Meropenem and vancomycin. Methicillin resistant Staphylococcus aureus (MRSA) screening. 6. Acute chronic obstructive pulmonary disease (COPD) exacerbation with chronic hypercarbia. Continue steroids. Oxygen supplementation. Weaned off BiPAP. Repeat ABG. Continue antibiotics mentioned above. Nebulizer treatments, Solu-Medrol, Pulmicort, Singulair. Pulmonology consulted. The patient might be a candidate for Trilogy, but we will assess the patient's baseline after current condition resolves. 7. Hypertension. Continue Lisinopril and diltiazem. Monitor blood pressure. 8. Type 2 diabetes. Fingerstick insulin as per protocol. 9. Anxiety. Continue home medications. 10. Gastroesophageal reflux disease (GERD). Continue Pepcid. 11. Dyslipidemia. Continue statin. 12. Constipation. Bowel regimen as prescribed. 13. Vitamin D deficiency. Supplementation ordered. 14. Deep vein thrombosis (DVT) prophylaxis. The patient is on Xarelto for atrial fibrillation. DISPOSITION: Pending clinical improvement. Physical therapy (PT) as been ordered.
--- NOTE | 2016-07-04 21:31 | IPN ---
DATE: 07/04/2016 The patient has been on BiPAP overnight. No further episodes of epistaxis. Comfortable. Reports respirations are slightly improved. Denies any fevers, chills, chest pain, pressure or discomfort. Continues to have wheeze and dyspnea. VITAL SIGNS: Temperature 98.3, pulse 104, respirations 25, blood pressure 150/68, pulse oximetry 98% on 40% FiO2 BiPAP. LABORATORY DATA: WBC 11.4, hemoglobin and hematocrit 8.4/26.2, platelets 216. Repeat hemoglobin and hematocrit 8.7/27.5. Chemistry: Sodium 143, potassium 4.4, chloride 98, bicarbonate 39, BUN 33, creatinine 0.83, C-reactive protein negative. PHYSICAL EXAMINATION: GENERAL: The patient is obese, alert and oriented times three. Weak. HEENT: Normocephalic, atraumatic. PULMONARY: Diminished breath sounds bilaterally. Bilateral expiratory wheeze. Tachypneic. CARDIAC: Tachycardia, irregular. S1, S2. ABDOMEN: Soft, nontender. Positive bowel sounds. EXTREMITIES: No edema in bilateral lower extremities. ASSESSMENT AND PLAN: This is a 70-year-old female patient with underlying medical history of anemia, type 2 diabetes, vitamin D deficiency, dyslipidemia, hypertension, angina, atrial fibrillation, congestive heart failure (CHF), gastroesophageal reflux disease (GERD), constipation, hematuria, chronic hypoxic respiratory failure, anxiety, chronic obstructive pulmonary disease (COPD), who presented with two days of progressively worsening shortness of breath, admitted for acute on chronic hypercarbic respiratory failure and hypoxic respiratory failure. Recent history of intubation. 1. Acute on chronic hypercarbic hypoxic respiratory failure. The patient is initially weaned off BiPAP. Admitted to intensive care unit (ICU). Supplement oxygen. ABG appreciated. Respiratory panel positive for influenza and started on Tamiflu, nebulizer treatments, Singulair, Solu-Medrol, meropenem, vancomycin for possible healthcare associated bacterial pneumonia. CT scan appreciated. Pulmonology consulted. The patient developed an episode of epistaxis during the hospital admission and was found to be having therapeutic INR. Currently back to baseline. 2. Epistaxis with acute blood loss anemia in the setting of supratherapeutic INR. The patient's primary doctor has switched the patient from Coumadin to Xarelto two days prior to admission. INR was 7 initially. Given fresh frozen plasma , vitamin K, and also packed red blood cell transfusion. Hemoglobin and hematocrit currently stable. Epistaxis has resolved. Discuss with Dr. Linares, aircraft fueler, would like to restart the patient back on Xarelto. Currently, Xarelto has been restarted. 3. Multifocal healthcare-associated bacterial pneumonia. Followup culture. Sputum culture. Respiratory panel appreciated and positive for influenza. Tamiflu. Meropenem and vancomycin. Methicillin resistant Staphylococcus aureus (MRSA) screening. If MRSA screening is negative, we will discontinue vancomycin. 4. Acute COPD exacerbation. Continue steroids. Supplement oxygen. Wean BiPAP as tolerated. Followup ABG. Continue antibiotic mentioned above. Solu-Medrol, Pulmicort, Singulair. Pulmonary consulted. Nebulizer treatments. 5. Hypertension. Continue Lisinopril and diltiazem. Monitor blood pressure. 6. Atrial fibrillation. On Xarelto and diltiazem. Diltiazem dose has been adjusted, which is short acting for better titration for atrial fibrillation with rapid ventricular response. 7. Type 2 diabetes. Insulin as per protocol. Followup fingersticks. 8. Anxiety. Continue home medications. 9. Gastroesophageal reflux disease (GERD). Continue Pepcid. 10. Dyslipidemia. Continue statin. 11. Constipation. Bowel regimen as prescribed. 12. Vitamin D deficiency. Continue oral supplementation. 13. Deep vein thrombosis (DVT) prophylaxis. The patient is placed back on Xarelto for atrial fibrillation. DISPOSITION: Pending clinical improvement. Physical therapy (PT). Discuss with patient and the family. The patient remains FULL CODE, but, as per patient, she does not want a tracheostomy if she is unable to wean off the ventilator in 7 days, she would like to be palliatively extubated, and her family is aware and will make the decision when the time comes.
[2016-07-04] MEDS: LISINOPRIL 5 MG TAB PO SCH (22:28)
[2016-07-04] MEDS: MONTELUKAST 10 MG TAB PO SCH (22:40)
[2016-07-04] MEDS: ROSUVASTATIN 10 MG TAB (CRESTOR) PO SCH (22:40)
[2016-07-05] VITALS (21 sets, daily range): BP systolic 128–185; BP diastolic 59–96; O2SAT 91–99
[2016-07-05] MEDS: IPRATROPIUM 0.5MG/ALBUTEROL 2.5MG INH SOL UD 3ML (DUONEB)(J7620) NEB SCH ×7 (00:34→23:19)
[2016-07-05] MEDS: MEROPENEM INJ 1 GM in D5W MINI-BAG PLUS 100 ML IV SCH ×3 (03:53→19:23)
[2016-07-05 05:12] LABS: MEAN CORPUSCULAR HEMOGLOBIN 29.7 pg (27.0-33.0); MEAN CORPUSCULAR HGB CONC 32.1 g/dl (32.0-36.5); MEAN CORPUSCULAR VOLUME 92.8 fl (80.0-96.0); RED CELL DISTRIBUTION WIDTH 17.4 % (11.5-14.5); WHITE BLOOD COUNT 9.4 K/mm3 (4.0-10.0)
[2016-07-05 05:27] LABS: INR 2.28
[2016-07-05 05:33] LABS: ANION GAP 4 MEQ/L (8-16); BLOOD UREA NITROGEN 32 MG/DL (7-18); CALCIUM LEVEL 8.6 MG/DL (8.8-10.2); CARBON DIOXIDE LEVEL 42 MEQ/L (21-32); CHLORIDE LEVEL 92 MEQ/L (98-107); CREATININE FOR GFR 0.82 MG/DL (0.55-1.02); GLOMERULAR FILTRATION RATE > 60.0 (>39); GLUCOSE, FASTING 183 MG/DL (83-110); MAGNESIUM LEVEL 2.3 MG/DL (1.8-2.4); POTASSIUM SERUM 4.3 MEQ/L (3.5-5.1); SODIUM LEVEL 138 MEQ/L (136-145)
[2016-07-05] MEDS: ASPIRIN 81 MG ENTERIC TAB PO SCH (08:17)
[2016-07-05] MEDS: OSELTAMIVIR PHOSPHATE 75 MG CAP (TAMIFLU) PO SCH ×2 (08:17→20:46)
[2016-07-05] MEDS: FAMOTIDINE 20 MG TAB PO SCH ×2 (08:17→20:49)
[2016-07-05] MEDS: VANCOMYCIN HCL 750 MG, VIAL MATE ADAPTER 1 EACH in D5W 250 ML IV SCH ×2 (08:17→20:48)
[2016-07-05] MEDS: DULoxetine 30 MG CAP (CYMBALTA) PO SCH (08:17)
[2016-07-05] MEDS: VITAMIN D 1,000 INTERNATIONAL UNITS TABLET PO SCH (08:17)
[2016-07-05] MEDS: FERROUS SULFATE 325MG TAB PO SCH ×2 (08:18→20:47)
[2016-07-05] MEDS: HumaLOG INSULIN (NovoLOG) PER UNIT SC SCH ×4 (08:18→20:47)
[2016-07-05] MEDS: methylPREDNISolone INJ 40 MG/1 ML VIAL (J2920) IV SCH ×2 (08:18→19:23)
[2016-07-05] MEDS: ASCORBIC ACID 500 MG TAB PO SCH ×2 (08:18→20:47)
[2016-07-05] MEDS: SENOKOT S TAB PO SCH ×2 (08:18→20:47)
[2016-07-05] MEDS: MIRALAX *UNIT DOSE* 17GM PACKET PO SCH (08:18)
[2016-07-05] MEDS: BISACODYL 10 MG SUPP PR SCH (08:18)
[2016-07-05] MEDS: SENNA 8.6 MG TAB (SENOKOT) PO SCH (08:18)
[2016-07-05] MEDS: BUDESONIDE 0.5 MG/2 ML INHALATION SUSPENSION INH SCH ×2 (08:21→19:39)
[2016-07-05] MEDS: TIOTROPIUM INHALER/CAPSULE (SPIRIVA) INH SCH (08:21)
--- NOTE | 2016-07-05 10:56 | IPNPDOC ---
Date Seen The patient was seen on 07/05/16. Progress Note SUBJECTIVE: The patient tells me she is feeling better she is breathing more easily she denies any specific complaints at this time she is happy with the care she is receiving OBJECTIVE PHYSICAL EXAMINATION: VITAL SIGNS: Please see below. GENERAL: Obese elderly female sleeping comfortably in bed wearing a BiPAP mask she is in no acute distress easily arousable to verbal stimuli HEENT: Pupils are equal round reactive to light is moist mucous membranes difficult to assess for any elevation CVP secondary to a large neck and body habitus CARDIOVASCULAR: S1-S2 appears to be a flutter-like rhythm is quite regular she is not tachycardic on my exam. RESPIRATORY: Good air movement. No rales appreciated some diminished breath sounds bibasilarly. ABDOMINAL: Obese bowel sounds are present abdomen soft EXTREMITIES: No clonus cyanosis or edema LABORATORY DATA: Chronic anemia currently hemoglobin around 8 chronically approximately 9 peripheral smear reveals normochromic normocytic anemia with features of anemia of chronic disease otherwise Please see below. MICROBIOLOGY: Influenza 80 H3 positive Please see below. IMAGING: CT angiography of the chest revealed no evidence of PE multifocal bronchopneumonia moderate centrilobular emphysema on the a chest x-ray on the revealed chronic changes with superimposed upper lobe infiltrate DVT prophylaxis ordered?: Patient is on Xarelto ASSESSMENT AND PLAN: This is a 70-[id number]-[id number]-year-old female with acute on chronic hypercapnic respiratory failure. PROBLEMS: 1. Acute on chronic hypercarbic respiratory failure: Pulmonary cell greatly appreciated, the patient was initially weaned off BiPAP she is positive for influenza and has been on Tamiflu, she is also on Solu-Medrol, nebulizers, Spiriva, Pulmicort and Singulair related to her history of COPD, she is also on meropenem and vancomycin for possible healthcare associated pneumonia. Today is day 4 of antibiotics The patient had been improving when she developed epistaxis she is found to have a subtherapeutic INR which was reversed with 2 of FFP. Should her H&H remained stable at this time for any further ongoing bleeding her stress status is improving once again defer to pulmonary if the patient can be taken off bipap in the near future. Her respiratory failure is likely secondary to the multifocal nature of the above problems 2. Atrial fibrillation: Appears to be almost like a flutter rhythm on the monitor this morning she is integrated was rolled she is rate controlled with diltiazem which is short acting been titrated up. 3. Hypertension: Trolled she is on lisinopril and diltiazem as outlined above 4. Type 2 diabetes: Sliding scale insulin and finger 6 uncontrolled 5. Anxiety: Continue Cymbalta 6. Constipation: We'll titrate up her by mouth regimen 7. Gastroesophageal reflux disease: The patient is on Pepcid 8. Dyslipidemia: The patient is on a statin 9. Vitamin D deficiency: The patient is on supplementation DISPOSITION: A she is clinically improving patient remains a full code. VS, I&O, 24H, Fishbone Vital Signs/I&O Vital Signs Date Time Temp Pulse Resp B/P Pulse Ox O2 Delivery O2 Flow Rate FiO2 07/05/16 10:00 117 24 139/67 90 NIPPV (BIPAP/CPAP) 40 07/05/16 09:00 4.0 07/05/16 08:00 98.0 I&O- Last 24 Hours up to 6 AM 07/05/16 06:00 Intake Total 1710 ml Output Total 2785 ml Balance -1075 ml Laboratory Data 24H LABS Laboratory Tests 2 07/04/16 10:57: Bedside Glucose (Misc Panel) 193H 07/04/16 17:58: Bedside Glucose (Misc Panel) 167H 07/04/16 19:48: Bedside Glucose (Misc Panel) 205H 07/05/16 04:37: Anion Gap 4L, C-Reactive Protein, Quantitative < 0.30, Blood Urea Nitrogen 32H, Creatinine 0.82, Sodium Level 138, Potassium Level 4.3, Chloride Level 92L, Carbon Dioxide Level 42H, Calcium Level 8.6L, Glomerular Filtration Rate > 60.0 , Magnesium Level 2.3, Prothromb Time International Ratio 2.28, Prothrombin Time 25.2H CBC/BMP Laboratory Tests 07/04/16 13:55 07/05/16 04:37 Calcium Level 8.6 L, Red Blood Count 2.88 L, Mean Corpuscular Volume 92.8, Mean Corpuscular Hemoglobin 29.7, Mean Corpuscular Hemoglobin Concent 32.1, Red Cell Distribution Width 17.4 H Microbiology Microbiology 07/01/16 Blood Culture - Preliminary, Resulted No Growth after 72 hours. All specime... 07/01/16 Blood Culture - Preliminary, Resulted No Growth after 72 hours. All specime... 07/04/16 MRSA Screen, Received Pending 07/01/16 Respiratory Virus Panel (PCR) ([facility]) - Final, Complete Influenza A H3 07/01/16 Urine Culture - Final, Complete INNA CAMPOS MD Jul 05, 2016 10:56
[2016-07-05] MEDS ORDERED: MIRALAX *UNIT DOSE* 17GM PACKET PO PRN (11:00)
[2016-07-05] MEDS ORDERED: MOM 30ML SUSPENSION UDC PO PRN (11:00)
[2016-07-05] MEDS: RIVAROXABAN 20 MG TAB (XARELTO) PO SCH (17:37)
[2016-07-05] MEDS: MONTELUKAST 10 MG TAB PO SCH (20:46)
[2016-07-05] MEDS: ROSUVASTATIN 10 MG TAB (CRESTOR) PO SCH (20:46)
[2016-07-05] MEDS: LISINOPRIL 5 MG TAB PO SCH (20:47)
[2016-07-06] VITALS (14 sets, daily range): BP systolic 115–169; BP diastolic 57–83; O2SAT 93–99
[2016-07-06] MEDS: MEROPENEM INJ 1 GM in D5W MINI-BAG PLUS 100 ML IV SCH (04:36)
[2016-07-06] MEDS: IPRATROPIUM 0.5MG/ALBUTEROL 2.5MG INH SOL UD 3ML (DUONEB)(J7620) NEB SCH ×5 (04:53→20:57)
[2016-07-06 05:21] LABS: MEAN CORPUSCULAR HGB CONC 32.3 g/dl (32.0-36.5); MEAN CORPUSCULAR VOLUME 92.9 fl (80.0-96.0); RED CELL DISTRIBUTION WIDTH 17.5 % (11.5-14.5); WHITE BLOOD COUNT 10.4 K/mm3 (4.0-10.0)
[2016-07-06 05:37] LABS: ANION GAP 5 MEQ/L (8-16); BLOOD UREA NITROGEN 33 MG/DL (7-18); CALCIUM LEVEL 8.8 MG/DL (8.8-10.2); CARBON DIOXIDE LEVEL 40 MEQ/L (21-32); CHLORIDE LEVEL 93 MEQ/L (98-107); CREATININE FOR GFR 0.79 MG/DL (0.55-1.02); GLOMERULAR FILTRATION RATE > 60.0 (>39); GLUCOSE, FASTING 187 MG/DL (83-110); MAGNESIUM LEVEL 2.4 MG/DL (1.8-2.4); POTASSIUM SERUM 4.2 MEQ/L (3.5-5.1); SODIUM LEVEL 138 MEQ/L (136-145)
[2016-07-06] MEDS: TIOTROPIUM INHALER/CAPSULE (SPIRIVA) INH SCH (08:04)
[2016-07-06] MEDS: BUDESONIDE 0.5 MG/2 ML INHALATION SUSPENSION INH SCH ×2 (08:04→20:57)
[2016-07-06] MEDS: methylPREDNISolone INJ 40 MG/1 ML VIAL (J2920) IV SCH ×2 (08:13→20:06)
[2016-07-06] MEDS: HumaLOG INSULIN (NovoLOG) PER UNIT SC SCH ×4 (08:13→21:00)
[2016-07-06] MEDS: VITAMIN D 1,000 INTERNATIONAL UNITS TABLET PO SCH (09:21)
[2016-07-06] MEDS: SENNA 8.6 MG TAB (SENOKOT) PO SCH (09:21)
[2016-07-06] MEDS: DULoxetine 30 MG CAP (CYMBALTA) PO SCH (09:21)
[2016-07-06] MEDS: FERROUS SULFATE 325MG TAB PO SCH ×2 (09:21→20:06)
[2016-07-06] MEDS: FAMOTIDINE 20 MG TAB PO SCH ×2 (09:21→20:06)
[2016-07-06] MEDS: ASCORBIC ACID 500 MG TAB PO SCH ×2 (09:21→20:06)
[2016-07-06] MEDS: VANCOMYCIN HCL 750 MG, VIAL MATE ADAPTER 1 EACH in D5W 250 ML IV SCH (09:22)
[2016-07-06] MEDS: SENOKOT S TAB PO SCH ×2 (09:22→20:06)
[2016-07-06] MEDS: BISACODYL 10 MG SUPP PR SCH (09:22)
[2016-07-06] MEDS: ASPIRIN 81 MG ENTERIC TAB PO SCH (09:22)
--- NOTE | 2016-07-06 10:18 | IPNPDOC ---
Date Seen The patient was seen on 07/06/16. Progress Note SUBJECTIVE: The patient tells me she is feeling better she is breathing more easily she denies any specific complaints at this time. OBJECTIVE PHYSICAL EXAMINATION: VITAL SIGNS: Please see below. GENERAL: Obese elderly female sleeping comfortably in bed wearing a BiPAP mask she is in no acute distress easily arousable to verbal stimuli, she is AAOx3 HEENT: Pupils are equal round reactive to light is moist mucous membranes difficult to assess for any elevation CVP secondary to a large neck and body habitus CARDIOVASCULAR: S1-S2 appears to be a flutter-like rhythm is quite regular she is not tachycardic on my exam. RESPIRATORY: Good air movement. No rales appreciated some diminished breath sounds bibasilarly. ABDOMINAL: Obese bowel sounds are present abdomen soft EXTREMITIES: No clonus cyanosis or edema LABORATORY DATA: Chronic anemia currently hemoglobin around 8 chronically approximately 9 peripheral smear reveals normochromic normocytic anemia with features of anemia of chronic disease otherwise Please see below. MICROBIOLOGY: Influenza 80 H3 positive Please see below. IMAGING: CT angiography of the chest revealed no evidence of PE multifocal bronchopneumonia moderate centrilobular emphysema on the a chest x-ray on the revealed chronic changes with superimposed upper lobe infiltrate DVT prophylaxis ordered?: Patient is on Xarelto ASSESSMENT AND PLAN: This is a 79-[id number]-year-old female with acute on chronic hypercapnic respiratory failure. PROBLEMS: 1. Acute on chronic hypercarbic respiratory failure: Pulmonary consult greatly appreciated, the patient was initially weaned off BiPAP she is positive for influenza and has completed Tamiflu 5days, she is also on Solu-Medrol, nebulizers, Spiriva, Pulmicort and Singulair related to her history of COPD, she is also on meropenem and vancomycin for possible healthcare associated pneumonia. Today is day 5 of Abx, her MRSA screen is (-), all cultures (-), we will narrow spectrum to Levofloxacin to complete course for CAP. The patient had been improving when she developed epistaxis she was found to have a supratherapeutic INR which was reversed with 2 of FFP. Her H&H has remained stable at this time, no further bleeding. At the present time she is unable to be weaned from BiPAP will defer to pulmonary regarding her respiratory status 2. Atrial fibrillation: Appears to be almost like a flutter rhythm on the monitor this morning she is anticoagulated she is rate controlled with diltiazem which is short acting and has been titrated up this stay. 3. Hypertension: Controlled, she is on lisinopril and diltiazem as outlined above 4. Type 2 diabetes: Sliding scale insulin and finger sticks uncontrolled 5. Anxiety: Continue Cymbalta 6. Constipation: She is on a bowel regimen 7. Gastroesophageal reflux disease: The patient is on Pepcid 8. Dyslipidemia: The patient is on a statin 9. Vitamin D deficiency: The patient is on supplementation DISPOSITION: A she is clinically improving patient remains a full code. VS, I&O, 24H, Fishbone Vital Signs/I&O Vital Signs Date Time Temp Pulse Resp B/P Pulse Ox O2 Delivery O2 Flow Rate FiO2 07/06/16 08:00 BIPAP/CPAP 40 07/06/16 08:00 97.8 87 24 138/63 98 07/05/16 14:00 4.0 I&O- Last 24 Hours up to 6 AM 07/06/16 06:00 Intake Total 2810 ml Output Total 1795 ml Balance 1015 ml Laboratory Data 24H LABS Laboratory Tests 2 07/05/16 12:02: Bedside Glucose (Misc Panel) 204H 07/05/16 17:32: Bedside Glucose (Misc Panel) 200H 07/05/16 20:27: Bedside Glucose (Misc Panel) 240H 07/06/16 05:02: Anion Gap 5L, C-Reactive Protein, Quantitative < 0.30, Blood Urea Nitrogen 33H, Creatinine 0.79, Sodium Level 138, Potassium Level 4.2, Chloride Level 93L, Carbon Dioxide Level 40H, Calcium Level 8.8, Glomerular Filtration Rate > 60.0, Magnesium Level 2.4, Prothromb Time International Ratio 2.00, Prothrombin Time 22.8H CBC/BMP Laboratory Tests 07/06/16 05:02 Calcium Level 8.8, Red Blood Count 2.89 L, Mean Corpuscular Volume 92.9, Mean Corpuscular Hemoglobin 30.0, Mean Corpuscular Hemoglobin Concent 32.3, Red Cell Distribution Width 17.5 H Microbiology Microbiology 07/01/16 Blood Culture - Final, Complete NO GROWTH AFTER 5 DAYS 07/01/16 Blood Culture - Final, Complete NO GROWTH AFTER 5 DAYS 07/04/16 MRSA Screen - Final, Complete 07/01/16 Respiratory Virus Panel (PCR) ([facility]) - Final, Complete Influenza A H3 07/01/16 Urine Culture - Final, Complete NINA CAMPOS MD Jul 06, 2016 10:18
[2016-07-06] MEDS: LevoFLOXacin IV 500 MG in APPROPRIATE DILUENT 1 EA IV SCH (11:13)
[2016-07-06] MEDS: ALPRAZolam 0.25 MG TAB PO SCH ×3 (11:13→20:07)
[2016-07-06] MEDS: FUROSEMIDE 40 MG/4 ML VIAL (J1940) IV SCH ×2 (11:49→17:51)
[2016-07-06] MEDS: RIVAROXABAN 20 MG TAB (XARELTO) PO SCH (17:50)
[2016-07-06] MEDS: MONTELUKAST 10 MG TAB PO SCH (20:06)
[2016-07-06] MEDS: ROSUVASTATIN 10 MG TAB (CRESTOR) PO SCH (20:07)
[2016-07-06] MEDS: LISINOPRIL 5 MG TAB PO SCH (20:07)
[2016-07-07] VITALS (11 sets, daily range): BP systolic 123–174; BP diastolic 58–81; O2SAT 97–98
[2016-07-07] MEDS: IPRATROPIUM 0.5MG/ALBUTEROL 2.5MG INH SOL UD 3ML (DUONEB)(J7620) NEB SCH ×4 (00:11→11:22)
[2016-07-07] MEDS: FUROSEMIDE 40 MG/4 ML VIAL (J1940) IV SCH ×3 (00:28→11:54)
[2016-07-07 05:10] LABS: MEAN CORPUSCULAR HEMOGLOBIN 29.9 pg (27.0-33.0); MEAN CORPUSCULAR HGB CONC 31.7 g/dl (32.0-36.5); MEAN CORPUSCULAR VOLUME 94.6 fl (80.0-96.0); RED CELL DISTRIBUTION WIDTH 17.5 % (11.5-14.5); WHITE BLOOD COUNT 12.5 K/mm3 (4.0-10.0)
[2016-07-07 05:23] LABS: ANION GAP 6 MEQ/L (8-16); BLOOD UREA NITROGEN 42 MG/DL (7-18); CALCIUM LEVEL 8.9 MG/DL (8.8-10.2); CARBON DIOXIDE LEVEL 44 MEQ/L (21-32); CHLORIDE LEVEL 89 MEQ/L (98-107); GLOMERULAR FILTRATION RATE 58.4 (>39); GLUCOSE, FASTING 183 MG/DL (83-110); MAGNESIUM LEVEL 2.4 MG/DL (1.8-2.4); POTASSIUM SERUM 4.8 MEQ/L (3.5-5.1); SODIUM LEVEL 139 MEQ/L (136-145)
[2016-07-07 05:29] LABS: INR 1.84
[2016-07-07] MEDS: methylPREDNISolone INJ 40 MG/1 ML VIAL (J2920) IV SCH (07:41)
[2016-07-07] MEDS: HumaLOG INSULIN (NovoLOG) PER UNIT SC SCH ×2 (07:41→11:54)
[2016-07-07] MEDS: BUDESONIDE 0.5 MG/2 ML INHALATION SUSPENSION INH SCH ×2 (08:35→20:00)
[2016-07-07] MEDS: TIOTROPIUM INHALER/CAPSULE (SPIRIVA) INH SCH (08:35)
[2016-07-07] MEDS: SENNA 8.6 MG TAB (SENOKOT) PO SCH (09:13)
[2016-07-07] MEDS: FERROUS SULFATE 325MG TAB PO SCH (09:13)
[2016-07-07] MEDS: BISACODYL 10 MG SUPP PR SCH (09:13)
[2016-07-07] MEDS: VITAMIN D 1,000 INTERNATIONAL UNITS TABLET PO SCH (09:13)
[2016-07-07] MEDS: ALPRAZolam 0.25 MG TAB PO SCH ×3 (09:14→20:07)
[2016-07-07] MEDS: DULoxetine 30 MG CAP (CYMBALTA) PO SCH (09:14)
[2016-07-07] MEDS: SENOKOT S TAB PO SCH ×2 (09:14→20:07)
[2016-07-07] MEDS: ASPIRIN 81 MG ENTERIC TAB PO SCH (09:14)
[2016-07-07] MEDS: FAMOTIDINE 20 MG TAB PO SCH ×2 (09:14→20:07)
[2016-07-07] MEDS: ASCORBIC ACID 500 MG TAB PO SCH (09:14)
--- NOTE | 2016-07-07 09:54 | IPNPDOC ---
Date Seen The patient was seen on 07/07/16. Progress Note SUBJECTIVE: The patient tells me she is feeling better she is disappointed with her progress over the last 24 hours and is growing frustrated. She ghazal me she wants to live, she wants to get better and she wants to be off "the mask" any specific complaints otherwise at this time. OBJECTIVE PHYSICAL EXAMINATION: VITAL SIGNS: Please see below. GENERAL: Obese elderly female sleeping comfortably in bed wearing a BiPAP mask she is in no acute distress easily arousable to verbal stimuli, she is AAOx3 HEENT: Pupils are equal round reactive to light is moist mucous membranes difficult to assess for any elevation CVP secondary to a large neck and body habitus CARDIOVASCULAR: S1-S2 appears to be a flutter-like rhythm is quite regular she is not tachycardic on my exam. RESPIRATORY: Good air movement. No rales appreciated some diminished breath sounds bibasilarly. ABDOMINAL: Obese bowel sounds are present abdomen soft EXTREMITIES: No clonus cyanosis or edema LABORATORY DATA: Please see below. MICROBIOLOGY: Influenza 80 H3 positive Please see below. IMAGING: CT angiography of the chest revealed no evidence of PE multifocal bronchopneumonia moderate centrilobular emphysema on the a chest x-ray on the revealed chronic changes with superimposed upper lobe infiltrate DVT prophylaxis ordered?: Patient is on Xarelto ASSESSMENT AND PLAN: This is a 44-wmhs-ryh-year-old female with acute on chronic hypercapnic respiratory failure. PROBLEMS: 1. Acute on chronic hypercarbic respiratory failure: Pulmonary consult greatly appreciated, the patient was initially weaned off BiPAP she is positive for influenza and has completed Tamiflu 5days, she is also on Solu-Medrol, nebulizers, Spiriva, Pulmicort and Singulair related to her history of COPD, she is also on meropenem and vancomycin for possible healthcare associated pneumonia. Today is day 6 of Abx, her MRSA screen is (-), all cultures (-), we will narrow spectrum to Levofloxacin to complete course for CAP. The patient had been improving when she developed epistaxis she was found to have a supratherapeutic INR which was reversed with 2 of FFP. Her H&H has remained stable at this time, no further bleeding. At the present time she is unable to be weaned from Non Invasive Mechanical Ventilation will defer to pulmonary regarding her respiratory status. We did attempt to diurese her yesterday, today she is more hypochloremic and her BUN is rising suggesting her diuresis may need to be slowed. 2. Atrial fibrillation: Appears to be a flutter rhythm on the monitor, she is anticoagulated she is somewhat tachy this AM and as such I will titrate up her diltiazem 3. Hypertension: Controlled, she is on lisinopril and diltiazem as outlined above 4. Type 2 diabetes: Sliding scale insulin and finger sticks uncontrolled 5. Anxiety: Continue Cymbalta 6. Constipation: She is on a bowel regimen 7. Gastroesophageal reflux disease: The patient is on Pepcid 8. Dyslipidemia: The patient is on a statin 9. Vitamin D deficiency: The patient is on supplementation DISPOSITION: A she is clinically improving although quite slowly, the patient remains a full code. VS, I&O, 24H, Fishbone Vital Signs/I&O Vital Signs Date Time Temp Pulse Resp B/P Pulse Ox O2 Delivery O2 Flow Rate FiO2 07/07/16 08:00 4.0 07/07/16 08:00 98.3 90 24 123/63 98 NIPPV (BIPAP/CPAP) 40 I&O- Last 24 Hours up to 6 AM 07/07/16 05:59 Intake Total 2565 ml Output Total 4425 ml Balance -1860 ml Laboratory Data 24H LABS Laboratory Tests 2 07/06/16 11:40: Bedside Glucose (Misc Panel) 188H 07/06/16 17:12: Bedside Glucose (Misc Panel) 204H 07/06/16 21:50: Bedside Glucose (Misc Panel) 153H 07/07/16 04:56: Anion Gap 6L, C-Reactive Protein, Quantitative < 0.30, Blood Urea Nitrogen 42H, Creatinine 1.00, Sodium Level 139, Potassium Level 4.8, Chloride Level 89L, Carbon Dioxide Level 44H, Calcium Level 8.9, Glomerular Filtration Rate 58.4, Magnesium Level 2.4, Prothromb Time International Ratio 1.84, Prothrombin Time 21.3H CBC/BMP Laboratory Tests 07/07/16 04:56 Calcium Level 8.9, Red Blood Count 3.22 L, Mean Corpuscular Volume 94.6, Mean Corpuscular Hemoglobin 29.9, Mean Corpuscular Hemoglobin Concent 31.7 L, Red Cell Distribution Width 17.5 H Microbiology Microbiology 07/01/16 Blood Culture - Final, Complete NO GROWTH AFTER 5 DAYS 07/01/16 Blood Culture - Final, Complete NO GROWTH AFTER 5 DAYS 07/04/16 MRSA Screen - Final, Complete 07/01/16 Respiratory Virus Panel (PCR) ([facility]) - Final, Complete Influenza A H3 07/01/16 Urine Culture - Final, Complete NINA CAMPOS MD Jul 07, 2016 09:54
[2016-07-07] MEDS: LevoFLOXacin IV 500 MG in APPROPRIATE DILUENT 1 EA IV SCH (10:56)
[2016-07-07] MEDS ORDERED: predniSONE 10 MG TAB PO ONE (11:00)
[2016-07-07] MEDS ORDERED: SCOPOLAMINE 1.5 MG TRANSDERMAL TD PRN (15:45)
[2016-07-07] MEDS ORDERED: MORPHINE 10MG/0.5ML ORAL CONCENTRATE SOLUTION U/D SL PRN (15:45)
[2016-07-07] MEDS ORDERED: LORazepam 2 MG/ML VIAL (J2060) IV PRN (15:45)
[2016-07-07] MEDS ORDERED: LORazepam 1 MG TAB PO PRN (15:45)
[2016-07-07] MEDS ORDERED: oxyCODONE 5MG TAB SL PRN (16:15)
[2016-07-08] MEDS: ALPRAZolam 0.25 MG TAB PO SCH ×3 (09:38→21:37)
[2016-07-08] MEDS: VITAMIN D 1,000 INTERNATIONAL UNITS TABLET PO SCH (09:38)
[2016-07-08] MEDS: SENNA 8.6 MG TAB (SENOKOT) PO SCH (09:38)
[2016-07-08] MEDS: SENOKOT S TAB PO SCH ×2 (09:38→21:37)
[2016-07-08] MEDS: FAMOTIDINE 20 MG TAB PO SCH ×2 (09:38→21:37)
[2016-07-08] MEDS: DULoxetine 30 MG CAP (CYMBALTA) PO SCH (09:39)
[2016-07-08] MEDS: BUDESONIDE 0.5 MG/2 ML INHALATION SUSPENSION INH SCH (23:22)
[2016-07-09] MEDS: BUDESONIDE 0.5 MG/2 ML INHALATION SUSPENSION INH SCH ×2 (07:30→19:41)
[2016-07-09] MEDS: TIOTROPIUM INHALER/CAPSULE (SPIRIVA) INH SCH (07:30)
[2016-07-09] MEDS: DULoxetine 30 MG CAP (CYMBALTA) PO SCH (09:51)
[2016-07-09] MEDS: SENOKOT S TAB PO SCH ×2 (09:51→19:45)
[2016-07-09] MEDS: FAMOTIDINE 20 MG TAB PO SCH ×2 (09:51→19:45)
[2016-07-09] MEDS: VITAMIN D 1,000 INTERNATIONAL UNITS TABLET PO SCH (09:51)
[2016-07-09] MEDS: ALPRAZolam 0.25 MG TAB PO SCH ×3 (09:51→19:45)
[2016-07-09] MEDS: SENNA 8.6 MG TAB (SENOKOT) PO SCH (09:51)
[2016-07-09] MEDS: HYDROmorphone HCL 1 MG/ML SYRINGE (J1170) IV PRN (22:30)
[2016-07-10] MEDS: HYDROmorphone HCL 1 MG/ML SYRINGE (J1170) IV PRN ×3 (01:47→11:12)
[2016-07-10] MEDS: TIOTROPIUM INHALER/CAPSULE (SPIRIVA) INH SCH (07:27)
[2016-07-10] MEDS: BUDESONIDE 0.5 MG/2 ML INHALATION SUSPENSION INH SCH ×2 (07:27→19:43)
[2016-07-10] MEDS: SENOKOT S TAB PO SCH ×2 (07:34→21:09)
[2016-07-10] MEDS: SENNA 8.6 MG TAB (SENOKOT) PO SCH (07:34)
[2016-07-10] MEDS: FAMOTIDINE 20 MG TAB PO SCH ×2 (07:34→21:09)
[2016-07-10] MEDS: DULoxetine 30 MG CAP (CYMBALTA) PO SCH (07:34)
[2016-07-10] MEDS: ALPRAZolam 0.25 MG TAB PO SCH ×3 (07:35→21:09)
[2016-07-10] MEDS: VITAMIN D 1,000 INTERNATIONAL UNITS TABLET PO SCH (07:35)
[2016-07-11] MEDS: BUDESONIDE 0.5 MG/2 ML INHALATION SUSPENSION INH SCH ×2 (08:06→20:00)
[2016-07-11] MEDS: TIOTROPIUM INHALER/CAPSULE (SPIRIVA) INH SCH (08:06)
[2016-07-11] MEDS: FAMOTIDINE 20 MG TAB PO SCH ×2 (11:20→20:10)
[2016-07-11] MEDS: ALPRAZolam 0.25 MG TAB PO SCH ×3 (11:20→20:10)
[2016-07-11] MEDS: DULoxetine 30 MG CAP (CYMBALTA) PO SCH (11:20)
[2016-07-11] MEDS: SENNA 8.6 MG TAB (SENOKOT) PO SCH (11:22)
[2016-07-11] MEDS: SENOKOT S TAB PO SCH ×2 (11:22→20:10)
[2016-07-11] MEDS: VITAMIN D 1,000 INTERNATIONAL UNITS TABLET PO SCH (11:23)
[2016-07-12] MEDS: TIOTROPIUM INHALER/CAPSULE (SPIRIVA) INH SCH (07:54)
[2016-07-12] MEDS: BUDESONIDE 0.5 MG/2 ML INHALATION SUSPENSION INH SCH ×2 (07:54→20:19)
[2016-07-12] MEDS: SENNA 8.6 MG TAB (SENOKOT) PO SCH (08:08)
[2016-07-12] MEDS: DULoxetine 30 MG CAP (CYMBALTA) PO SCH (08:09)
[2016-07-12] MEDS: VITAMIN D 1,000 INTERNATIONAL UNITS TABLET PO SCH (08:09)
[2016-07-12] MEDS: FAMOTIDINE 20 MG TAB PO SCH ×2 (08:09→20:39)
[2016-07-12] MEDS: ALPRAZolam 0.25 MG TAB PO SCH ×3 (08:09→20:39)
[2016-07-12] MEDS: SENOKOT S TAB PO SCH ×2 (08:09→20:39)
--- NOTE | 2016-07-12 11:50 | IPN ---
DATE OF SERVICE: 07/12/2016 A 70-year-old female seen at bedside. She was recently made comfort measures only. No specific complaints. She appears to be resting comfortably and does not appear to be in any acute distress or having any pain. OBJECTIVE: The patient is resting comfortably. No acute distress. No nausea or vomiting. 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 ASSESSMENT AND PLAN: 1. Acute on chronic hypercarbic respiratory failure, felt to be at baseline. 2. Atrial fibrillation. 3. Hypertension. 4. Type 2 diabetes. 5. Anxiety 6. Constipation 7. Gastroesophageal reflux disease (GERD). 8. Dyslipidemia. 9. Vitamin D deficiency. 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 A Hospice consult was placed and did see her last evening. I had a discussion with patient and family services (PFS) regarding possible placement at [facility], which they are trying to make accommodations currently. Again. she does not appear to be in any distress and does not appear to have any further needs at this time. Provide supportive care as needed until she has been placed at the Hospice [facility].
[2016-07-13] MEDS: TIOTROPIUM INHALER/CAPSULE (SPIRIVA) INH SCH (07:33)
[2016-07-13] MEDS: BUDESONIDE 0.5 MG/2 ML INHALATION SUSPENSION INH SCH ×2 (07:34→20:00)
[2016-07-13] MEDS: FAMOTIDINE 20 MG TAB PO SCH ×2 (09:57→22:45)
[2016-07-13] MEDS: SENOKOT S TAB PO SCH ×2 (09:57→22:45)
[2016-07-13] MEDS: DULoxetine 30 MG CAP (CYMBALTA) PO SCH (09:57)
[2016-07-13] MEDS: ALPRAZolam 0.25 MG TAB PO SCH ×3 (09:57→22:45)
[2016-07-13] MEDS: VITAMIN D 1,000 INTERNATIONAL UNITS TABLET PO SCH (09:58)
[2016-07-13] MEDS: SENNA 8.6 MG TAB (SENOKOT) PO SCH (09:58)
[2016-07-14] MEDS: BUDESONIDE 0.5 MG/2 ML INHALATION SUSPENSION INH SCH (07:21)
[2016-07-14] MEDS: TIOTROPIUM INHALER/CAPSULE (SPIRIVA) INH SCH (07:21)
[2016-07-14] MEDS: FAMOTIDINE 20 MG TAB PO SCH (08:49)
[2016-07-14] MEDS: VITAMIN D 1,000 INTERNATIONAL UNITS TABLET PO SCH (08:49)
[2016-07-14] MEDS: DULoxetine 30 MG CAP (CYMBALTA) PO SCH (08:49)
[2016-07-14] MEDS: SENNA 8.6 MG TAB (SENOKOT) PO SCH (08:49)
[2016-07-14] MEDS: ALPRAZolam 0.25 MG TAB PO SCH (08:49)
[2016-07-14] MEDS: SENOKOT S TAB PO SCH (08:50)
[2016-07-14] MEDS ORDERED: TRAN1.5D2 TD (10:13)
[2016-07-14] MEDS ORDERED: SENN1TAB4 PO (10:13)
[2016-07-14] MEDS ORDERED: ATIV1TAB7 PO (10:13)
[2016-07-14] MEDS ORDERED: OXYCO5TA SL (10:13)
--- NOTE | 2016-07-14 14:29 | DSES ---
DATE OF ADMISSION: 07/01/2016 DATE OF DISCHARGE: 07/14/2016 PRIMARY CARE PROVIDER: Myranda Davis CONSULTANTS: Dr. Linares. PROCEDURES: None. COMPLICATIONS: None. ADMISSION/DISCHARGE DIAGNOSES: 1. Acute on chronic hypercarbic respiratory failure with end-stage lung disease. 2. Atrial fibrillation. 3. Hypertension. 4. Type 2 diabetes. 5. Anxiety 6. Constipation 7. Gastroesophageal reflux disease. 8. Dyslipidemia. 9. Vitamin D deficiency. BRIEF HOSPITAL COURSE: 70-year-old female who presented to the emergency department with acute hypercarbic respiratory failure on 07/01/2016 requiring BiPAP and acute on chronic respiratory failure with a pH of 7.26 and pCO2 of 92. CT angio of the chest showed reticular type infiltrate both lobes and felt to have underlying pneumonia that was felt to be viral in nature. She did require admission to the intensive care unit (ICU) for mechanical ventilation. Systemic steroids were started. Antibiotics were started to cover healthcare associated pneumonia. She did continue to require BiPAP due to her continued recurrence of hypercarbic respiratory failure and per documentation on 07/07/2016 she elected as well as a discussion with family to be off of the "mask" and comfort measures only ([employer]) discussion was made since she felt that she was unable to tolerate BiPAP any longer. Hospice was consulted and today they were able to make a transition to the hospice house. For further information regarding intake physical, labs and diagnostics, refer to the history and physical (H and P) and ongoing progress notes. DISCHARGE CONDITION: Stable. DISPOSITION: Discharge to Hospice House. Prognosis is poor due to recurrent hypercarbic respiratory failure and end-stage lung disease. DISCHARGE MEDICATIONS: - Ativan 1 mg sublingually or by mouth every 2 hours as needed - oxycodone 5 mg every 2 hours as needed dyspnea - Transderm Scop 1.5 mg applied transdermally every 3 days - senna tablets 1 tablet daily as needed DISCHARGE INSTRUCTIONS: Discharge to [facility]osp[facility] House. Activity as tolerated. Regular diet. Continue with medications as outlined above as needed. The discharge took approximately 20 minutes.
== END 2016-07-14 12:44 | disposition hospice, inpatient (51) | DRG 193 ==
LOC: M ED 01:49 → M ED INP 04:54 → M ICU 08:01 → M MSPAV 07-07 17:32
PROVIDERS: ADMIT Hospitalist; ATTEND Hospitalist
PROC: 30253N1 (ICD-10-PCS; principal; 2016-07-02)
PROC: 30253K1 (ICD-10-PCS; 2016-07-02)
DX: J10.00 Influenza due to other identified influenza virus with unspecified type of pneumonia (principal); J96.22 Acute and chronic respiratory failure with hypercapnia; J96.21 Acute and chronic respiratory failure with hypoxia; J44.1 Chronic obstructive pulmonary disease with (acute) exacerbation; D62 Acute posthemorrhagic anemia; J12.9 Viral pneumonia, unspecified; E11.9 Type 2 diabetes mellitus without complications; E78.5 Hyperlipidemia, unspecified; Z51.5 Encounter for palliative care; Z66 Do not resuscitate; I11.0 Hypertensive heart disease with heart failure; I48.91 Unspecified atrial fibrillation; I50.9 Heart failure, unspecified; E55.9 Vitamin D deficiency, unspecified; K21.9 Gastro-esophageal reflux disease without esophagitis; D63.8 Anemia in other chronic diseases classified elsewhere; R04.0 Epistaxis; E66.9 Obesity, unspecified; I25.10 Atherosclerotic heart disease of native coronary artery without angina pectoris; K59.00 Constipation, unspecified; F41.9 Anxiety disorder, unspecified; Z87.891 Personal history of nicotine dependence; Z79.82 Long term (current) use of aspirin; Z79.899 Other long term (current) drug therapy; Z88.2 Allergy status to sulfonamides; Z88.6 Allergy status to analgesic agent; Z79.01 Long term (current) use of anticoagulants; Y95 Nosocomial condition; Z68.30 Body mass index [BMI] 30.0-30.9, adult